=== PATIENT | female | born 1950 | race Caucasian/White ===

== ENCOUNTER → 2016-02-29 | Outpatient (REF) | payer MEDICARE, OTHER ==
[2016-02-29 17:24] LABS: ANION GAP 10 MEQ/L (8-16); BLOOD UREA NITROGEN 14 MG/DL (7-18); CALCIUM LEVEL 9.5 MG/DL (8.8-10.2); CARBON DIOXIDE LEVEL 29 MEQ/L (21-32); CHLORIDE LEVEL 103 MEQ/L (98-107); CREATININE FOR GFR 0.84 MG/DL (0.55-1.02); GLOMERULAR FILTRATION RATE > 60.0 (>45); GLUCOSE, FASTING 136 MG/DL (80-110); POTASSIUM SERUM 3.9 MEQ/L (3.5-5.1); SODIUM LEVEL 142 MEQ/L (136-145)
== END ==
LOC: M SFHCCLAY 09:46
PROVIDERS: ATTEND Family Medicine
DX: I10 Essential (primary) hypertension (principal); E55.9 Vitamin D deficiency, unspecified
CPT/HCPCS: 80048; 82652; G0463

== ENCOUNTER 2016-04-22 19:33 | Inpatient (IN) | payer MEDICARE, OTHER ==
[~2016-04-22] VITALS: Ht 165.1 cm; Wt 86.1 kg
[2016-04-22] MEDS ORDERED: ISOVUE-370 76% 100ML VIAL (Q9967) As Ordered ONE (20:17)
[2016-04-22 20:22] LABS: ABG BASE EXCESS 0.5 (-2.0-2.0); ABG DEVICE NASAL CANN; ABG HCO3 20.7 MEQ/L (22.0-26.0); ABG PARTIAL PRESSURE CO2 23.8 mmHg (35.0-45.0); ABG STANDARD HCO3 24.5 MEQ/L (22.0-26.0); ABG TOTAL CO2 21.4 MEQ/L (23.0-31.0); ABG pH (ARTERIAL) 7.557 UNITS (7.350-7.450)
[2016-04-22 20:23] LABS: ABG PARTIAL PRESSURE O2 40.2 mmHg (75.0-100.0)
[2016-04-22] MEDS ORDERED: ONDANSETRON 4MG/2ML VIAL (J2405) IV PRN (21:00)
--- NOTE | 2016-04-22 21:10 | REPUSA ---
CT angiogram of the chest Clinical statement: shortness of breath. Technique: Multiple axial CT images were obtained from the thoracic inlet through the upper abdomen a fter a bolus administration of nonionic intravenous contrast. Coronal and sagittal reconstructions we re also obtained. No comparison is available. Findings: The pulmonary arteries are well-opacified with contrast, with no intraluminal filling defec ts to suggest embolism. The thoracic aorta is unremarkable. Thyroid gland is within normal limits. Th ere is no thoracic lymphadenopathy. There are no pericardial or pleural effusions. The lungs are ayden r. Limited imaging of the upper abdomen is unremarkable. There is a 3 cm simple cyst in the posterior right kidney. There are no suspicious osseous lesions. Impression: Unremarkable CT examination of the chest. No evidence of pulmonary embolism.
[2016-04-22] MEDS ORDERED: LEVALBUTEROL 1.25 MG/0.5 ML CONCENTRATE NEB INH PRN (21:15)
[2016-04-22] MEDS ORDERED: diltiaZEM 125 MG in NS 100 ML IV SCH (21:45)
[2016-04-22] MEDS ORDERED: SODIUM CHLORIDE NASAL 0.65% SPRAY BTL (OCEAN) PRN (21:45)
[2016-04-22 21:48] LABS: ABG BASE EXCESS 1.2 (-2.0-2.0); ABG HCO3 23.1 MEQ/L (22.0-26.0); ABG PARTIAL PRESSURE O2 90.8 mmHg (75.0-100.0); ABG STANDARD HCO3 25.5 MEQ/L (22.0-26.0); ABG TOTAL CO2 24.1 MEQ/L (23.0-31.0); ABG pH (ARTERIAL) 7.505 UNITS (7.350-7.450)
[2016-04-22] MEDS ORDERED: CLINDAMYCIN 600 MG in APPROPRIATE DILUENT 1 EA IV SCH (22:00)
[2016-04-22 22:09] LABS: BASO % 0.4 % (0.0-1.0); EOS # 0.1 K/mm3 (0.0-0.50); EOS % 0.7 % (0.0-3.0); LARGE UNSTAINED CELL # 0.2 K/mm3 (0.0-0.4); LARGE UNSTAINED CELL % 1.6 % (0.0-4.0); LYMPH # 2.2 K/mm3 (1.5-4.5); LYMPH % 23.1 % (24.0-44.0); MEAN CORPUSCULAR HEMOGLOBIN 28.7 pg (27.0-33.0); MEAN CORPUSCULAR HGB CONC 34.3 g/dl (32.0-36.5); MEAN CORPUSCULAR VOLUME 83.8 fl (80.0-96.0); MONO # 0.5 K/mm3 (0.0-0.8); MONO % 4.8 % (0.0-5.0); NEUTROPHILS # 6.7 K/mm3 (1.8-7.7); NEUTROPHILS % 69.5 % (36.0-66.0); PLATELET COUNT, AUTOMATED 315 k/mm3 (150-450); RED CELL DISTRIBUTION WIDTH 12.9 % (11.5-14.5); WHITE BLOOD COUNT 9.6 K/mm3 (4.0-10.0)
[2016-04-22 22:29] LABS: ALKALINE PHOSPHATASE 56 U/L (45-117); ALT/SGPT 57 U/L (12-78); AMYLASE 27 U/L (25-115); ANION GAP 12 MEQ/L (8-16); AST/SGOT 27 U/L (15-37); BILIRUBIN,TOTAL 0.4 MG/DL (0.2-1.0); BLOOD UREA NITROGEN 10 MG/DL (7-18); CALCIUM LEVEL 8.8 MG/DL (8.8-10.2); CARBON DIOXIDE LEVEL 24 MEQ/L (21-32); CHLORIDE LEVEL 100 MEQ/L (98-107); GLOMERULAR FILTRATION RATE > 60.0 (>45); GLUCOSE, FASTING 123 MG/DL (80-110); POTASSIUM SERUM 3.3 MEQ/L (3.5-5.1); SODIUM LEVEL 136 MEQ/L (136-145); T UPTAKE 35 % (30-39); THYROXINE (T4) 13.2 UG/DL (4.5-12.0)
[2016-04-22] MEDS ORDERED: PANT40TA2 PO (22:52)
[2016-04-22] MEDS ORDERED: METF500T PO (22:52)
[2016-04-22] MEDS ORDERED: ASPI81TAEC PO (22:52)
[2016-04-22] MEDS ORDERED: PLAV75TA38 PO (22:52)
[2016-04-22] MEDS ORDERED: VITA200015 PO (22:52)
[2016-04-22] MEDS ORDERED: PRAV20TA2 PO (22:52)
[2016-04-22] MEDS ORDERED: HYDR12CA PO (22:52)
[2016-04-22] MEDS ORDERED: CEFD1CAP8 PO (22:52)
[2016-04-22] MEDS ORDERED: ZYRT10TA2 PO (22:52)
[2016-04-22] MEDS ORDERED: LISI2.5T3 PO (22:52)
[2016-04-22] MEDS ORDERED: NYST100024 TOP (22:52)
[2016-04-22] MEDS ORDERED: ACET50TAOT PO (22:52)
[2016-04-22] MEDS ORDERED: CO Q1CAP PO (22:52)
[2016-04-22] MEDS ORDERED: DILT120C82 PO (22:52)
--- NOTE | 2016-04-22 23:00 | REPUSA ---
CT of the head Clinical history: Headache. Technique: Multiple axial CT images were obtained through the head without administration of contrast . Findings: The ventricles and sulci are symmetric bilaterally. There is no evidence of acute hemorrhag e or infarct. There is no midline shift, mass effect, or extra-axial fluid collection. The osseous st ructures are unremarkable. The visualized paranasal sinuses and mastoid air cells are clear. Impression: Negative study.
[2016-04-22] MEDS ORDERED: DEXTROSE 50% 50 ML SYRINGE IV PRN (23:15)
[2016-04-22] MEDS ORDERED: GLUCAGON FOR INJ 1 MG VIAL (J1610) SC PRN (23:15)
[2016-04-22] MEDS ORDERED: GLUCOSE 4 GM CHEW TABLET PO PRN (23:15)
--- NOTE | 2016-04-22 23:18 | EDDOCDS ---
Nurse's Notes [facility] Name: Bindu Grullon Age: 65 yrs Sex: Female : 1950 Arrival Date: 04/22/2016 Time: 19:33 Bed 4 Private MD: Diagnosis: Hypoxemia Presentation: 04/22 19:45 Presenting complaint: EMS states: Patient transferred from [facility] after she mgs went to the hospital reporting abdominal pain on the right side that she states travels to left side and up to her ears. SOB that patient reports has been happening for close to a year. Adult Sepsis Screening: The patient does not have new or worsening altered mentation. Patient has a respiratory rate of greater than or equal to 22 (1 point). Systolic blood pressure is greater than 100. Patient has a qSOFA score of 1- Negative Sepsis Screen. Suicide/Homicide risk assessment- the patient denies having any suicidal and/or homicidal ideations and does not present with any other emotional, behavioral or mental health complaints. Status: Patient is not a ag service manager or dependent. Transition of care: patient was received from [facility]. 19:45 Acuity: PAMELA Level 3 mgs 19:45 Method Of Arrival: Ambulance mgs Triage Assessment: 19:59 General: Appears uncomfortable, Behavior is cooperative. Pain: The patient reports mgs he/she is under the care of a painter chassis and has a current pain contract. Location: from left upper abdomen to right upper abdomen that patient reports travels up to heart. The patient is triaged at the bedside. See Assessment in Nurses Notes section of ED record. Neurological: Level of Consciousness is awake, alert, Oriented to person, place, time. Cardiovascular: Capillary refill < 3 seconds Heart tones S1 S3 present Pulses are 2+ in right radial artery and left radial artery. Respiratory: Onset: The symptoms/episode began/occurred over a week. GI: Abdomen is obese, Bowel sounds present X 4 quads. Abd is tender to palpation in right upper quadrant and left upper quadrant. Derm: Derm: Skin is appears slightly cyanotic. Historical: - Allergies: PENICILLINS; - Home Meds: 1. Plavix 75 mg Oral tab 1 tab once daily 2. acetaminophen 500 mg Oral cap 1 cap as needed 3. aspirin 81 mg Oral tab 1 tab once daily 4. Co Q-10 100 mg oral cap 5. hydrochlorothiazide 12.5 mg Oral tab 1 tab once daily 6. lisinopril 2.5 mg Oral tab 1 tab once daily 7. metformin 500 mg Oral Tb24 1 tab once daily 8. Oxygen 3 liters 9. pravastatin 20 mg oral tab 1 tab once daily 10. Protonix 40 mg Oral grps 1 packet once daily 11. Vitamin D Oral 2000 units daily 12. Zyrtec 10 mg Oral tab 1 tab as needed 13. diltiazem HCl 120 mg Oral cpER 1 cap once daily - PMHx: Sinusitis; paroxysmal ventricular tachycardia; Bronchitis; Hypercholesterolemia; breast cancer; diabetes mellitus; Hypertension; - PSHx: Cholecystectomy; Lumpectomy- Left; Tubal ligation; - Social history: Smoking status: Patient states was never smoker of tobacco. No barriers to communication noted, The patient speaks fluent Indonesian. - Family history: Not pertinent. - : The pt / caregiver states he / she is on anticoagulants: Plavix. Home medication list is obtained from the facility APR. - Exposure Risk Screening:: None identified. Screenin:09 Screening information is obtained from the patient, family members. Fall risk: At risk mgs due to age. Assistance ADL's: requires no assistance with activities of daily living. Abuse/DV Screen: The patient / caregiver reports he/she is: not in a situation that causes fear, pain or injury. Nutritional screening: No deficits noted. Advance Directives: Currently, there is no health care proxy. There is no active DNR order. home support is adequate. Assessment: 20:10 General: Please see triage assessment. mgs 21:34 General: Appears in no apparent distress, Behavior is appropriate for age, cooperative. mgs Pain: Location: left upper quadrant and right upper quadrant Pain currently is 5 out of 10 on a pain scale. Neurological: Level of Consciousness is awake, alert, Oriented to person, place, time. Cardiovascular: Capillary refill < 3 seconds Heart tones S1 S2 present. Respiratory: Airway is patent Respiratory effort is even, unlabored, Respiratory pattern is regular, symmetrical. Derm: Skin is pink, warm & dry. 22:37 General: Appears in no apparent distress. Neurological: Level of Consciousness is mgs awake, alert. Cardiovascular: Capillary refill < 3 seconds. Respiratory: Airway is patent Respiratory effort is even, unlabored, Respiratory pattern is regular, symmetrical. Derm: Skin is pink, warm & dry. 23:15 General: Appears in no apparent distress, Behavior is appropriate for age, cooperative. mgs Neurological: Level of Consciousness is awake, alert. Cardiovascular: Capillary refill < 3 seconds. Respiratory: Airway is patent Respiratory effort is even, unlabored, Respiratory pattern is regular, symmetrical. Derm: Skin is pink, warm & dry. Vital Signs: 19:50 BP 156 / 99; Pulse 98; Resp 22; Temp 97.5; Pulse Ox 84% on 15% Non-rebreather mask; mgs 20:23 BP 147 / 95 (auto/); mgs 20:23 Pulse 104 MON; Pulse Ox 75% ; mgs 20:48 BP 147 / 95; Pulse 88; Resp 20; Pulse Ox 92% on Non-rebreather mask; mgs 20:48 BP 134 / 83 (auto/); mgs 20:48 Pulse 88 MON; Pulse Ox 92% ; mgs 21:03 BP 133 / 84 (auto/); mgs 21:03 Pulse 86 MON; Pulse Ox 93% ; mgs 21:18 BP 120 / 83 (auto/); mgs 21:18 Pulse 86 MON; Pulse Ox 96% ; mgs 21:33 BP 129 / 86 (auto/); mgs 21:33 Pulse 86 MON; Pulse Ox 96% ; mgs 22:18 BP 140 / 82 (auto/); mgs 22:18 Pulse 86 MON; Pulse Ox 92% ; mgs 22:33 BP 131 / 80 (auto/); mgs 22:33 Pulse 90 MON; Pulse Ox 99% ; mgs 22:48 BP 122 / 77 (auto/); mgs 22:48 Pulse 84 MON; Pulse Ox 97% ; mgs 23:03 BP 119 / 77 (auto/); mgs 23:03 Pulse 82 MON; Pulse Ox 96% ; mgs 23:12 BP 127 / 85 LA Supine (auto/reg); Pulse 85 MON; Resp 20 S; Temp 98.3(TE); Pulse Ox 97% cln on 15% Non-rebreather mask; Pain 0/10; 23:12 BP 127 / 85 (auto/); mgs 23:12 Pulse 86 MON; Pulse Ox 96% ; mgs Vitals: 20:07 Log In Time N/A - ambulance arrival. mgs ED Course: 19:39 Patient visited by Baljinder Medina, Drier Tender. ml3 19:39 Siobhan Whittaker, NATAN is Primary Nurse. ml3 19:39 Patient moved to Waiting ml3 19:39 Patient moved to 4 ml3 19:43 Bryan Davidson DO is Attending Physician. cs11 19:43 Patient visited by Bryan Davidson DO. cs11 19:48 Triage Initiated mgs 20:10 Patient visited by Noah Levy RN. mgs 20:13 -Arterial Blood Gas Sent. lf2 20:49 Patient visited by Noah Levy,NATAN. mgs 21:35 Patient visited by Noah Levy,NATAN. mgs 21:41 ARTERIAL BLOOD GAS Sent. dk 21:42 CT Chest Angio R/O PE Returned. EDMS 21:43 Krystal Henderson is Hospitalizing Provider. cs11 22:15 Primary Nurse role handed off by Siobhan Whittaker RN renate 22:20 Noah Levy RN is Primary Nurse. mgs 22:33 notified hospitalist of lactic acid of 2.2. mlc 22:38 Patient visited by Noah Levy RN. mgs 23:16 The patient / caregiver is instructed regarding the plan of care and ED course. mgs 23:16 Inserted saline lock: 20 gauge in left antecubital area. No procedures done that mgs require assistance. RT: 20:13 ABG's drawn from left radial artery allens test done and positive pressure held for 5 lf2 minutes pressure bandage applied specimen sent pt. tolerated well. O2 via non-rebreather \T\ 15L/min. 21:42 ABG's drawn from left radial artery allens test done and positive pressure held for 5 dk minutes no bleeding noted pressure bandage applied specimen sent pt. tolerated well. Order Results: Lab Order: -Arterial Blood Gas; SPEC'M 04/22/16 20:12 Test: ABG pH (ARTERIAL); Value: 7.557; Range: 7.350-7.450; Abnormal: Above high normal; Units: UNITS; Status: F Test: ABG PARTIAL PRESSURE CO2; Value: 23.8; Range: 35.0-45.0; Abnormal: Below low normal; Units: mmHg; Status: F Test: ABG PARTIAL PRESSURE O2; Value: 40.2; Range: 75.0-100.0; Abnormal: Critical Low; Units: mmHg; Status: F Test: ABG TOTAL CO2; Value: 21.4; Range: 23.0-31.0; Abnormal: Below low normal; Units: MEQ/L; Status: F Test: ABG HCO3; Value: 20.7; Range: 22.0-26.0; Abnormal: Below low normal; Units: MEQ/L; Status: F Test: ABG BASE EXCESS; Value: 0.5; Range: -2.0-2.0; Status: F Test: ABG STANDARD HCO3; Value: 24.5; Range: 22.0-26.0; Units: MEQ/L; Status: F Test: ABG O2 SATURATION; Value: 81.1; Range: 95.0-99.0; Abnormal: Below low normal; Units: %; Status: F Test: ABG DEVICE; Value: NASAL ISAIAH; Status: F Lab Order: BRAIN NATIURETIC PEPTIDE; SPEC'M 04/22/16 21:48 Test: BRAIN NATRIURETIC PEPTIDE; Value: 78.6; Range: <100; Units: PG/ML; Status: F Lab Order: COMPLETE COMPHRENSIVE METABOLI; SPEC'M 04/22/16 21:48 Test: GLUCOSE, FASTING; Value: 123; Range: 80-110; Abnormal: Above high normal; Units: MG/DL; Status: F Test: BLOOD UREA NITROGEN; Value: 10; Range: 7-18; Units: MG/DL; Status: F Test: CREATININE FOR GFR; Value: 0.90; Range: 0.55-1.02; Units: MG/DL; Status: F Test: GLOMERULAR FILTRATION RATE; Value: > 60.0; Range: >45; Status: F Test: SODIUM LEVEL; Value: 136; Range: 136-145; Units: MEQ/L; Status: F Test: POTASSIUM SERUM; Value: 3.3; Range: 3.5-5.1; Abnormal: Below low normal; Units: MEQ/L; Status: F Test: CHLORIDE LEVEL; Value: 100; Range: 98-107; Units: MEQ/L; Status: F Test: CARBON DIOXIDE LEVEL; Value: 24; Range: 21-32; Units: MEQ/L; Status: F Test: ANION GAP; Value: 12; Range: 8-16; Units: MEQ/L; Status: F Test: CALCIUM LEVEL; Value: 8.8; Range: 8.8-10.2; Units: MG/DL; Status: F Test: AST/SGOT; Value: 27; Range: 15-37; Units: U/L; Status: F Test: ALT/SGPT; Value: 57; Range: 12-78; Units: U/L; Status: F Test: ALKALINE PHOSPHATASE; Value: 56; Range: 45-117; Units: U/L; Status: F Test: BILIRUBIN,TOTAL; Value: 0.4; Range: 0.2-1.0; Units: MG/DL; Status: F Test: TOTAL PROTEIN; Value: 8.0; Range: 6.4-8.2; Units: GM/DL; Status: F Test: ALBUMIN; Value: 4.0; Range: 3.2-5.2; Units: GM/DL; Status: F Test: ALBUMIN/GLOBULIN RATIO; Value: 1.00; Range: 1.00-1.93; Status: F Test Note: ; Units are mL/min/1.73 m2 Chronic Kidney Disease Staging per NKF: Stage I & II GFR >=60 Normal to Mildly Decreased Stage III GFR 30-59 Moderately Decreased Stage IV GFR 15-29 Severely Decreased Stage V GFR <15 Very Little GFR Left ESRD GFR <15 on MATERIAL HANDLING WAREHOUSE SUPERVISOR Lab Order: CBC WITH DIFFERENTIAL; SPEC'M 04/22/16 21:48 Test: WHITE BLOOD COUNT; Value: 9.6; Range: 4.0-10.0; Units: K/mm3; Status: F Test: RED BLOOD COUNT; Value: 5.39; Range: 4.00-5.40; Units: M/mm3; Status: F Test: HEMOGLOBIN; Value: 15.5; Range: 12.0-16.0; Units: g/dl; Status: F Test: HEMATOCRIT; Value: 45.1; Range: 36.0-47.0; Units: %; Status: F Test: MEAN CORPUSCULAR VOLUME; Value: 83.8; Range: 80.0-96.0; Units: fl; Status: F Test: MEAN CORPUSCULAR HEMOGLOBIN; Value: 28.7; Range: 27.0-33.0; Units: pg; Status: F Test: MEAN CORPUSCULAR HGB CONC; Value: 34.3; Range: 32.0-36.5; Units: g/dl; Status: F Test: RED CELL DISTRIBUTION WIDTH; Value: 12.9; Range: 11.5-14.5; Units: %; Status: F Test: PLATELET COUNT, AUTOMATED; Value: 315; Range: 150-450; Units: k/mm3; Status: F Test: NEUTROPHILS %; Value: 69.5; Range: 36.0-66.0; Abnormal: Above high normal; Units: %; Status: F Test: LYMPH %; Value: 23.1; Range: 24.0-44.0; Abnormal: Below low normal; Units: %; Status: F Test: MONO %; Value: 4.8; Range: 0.0-5.0; Units: %; Status: F Test: EOS %; Value: 0.7; Range: 0.0-3.0; Units: %; Status: F Test: BASO %; Value: 0.4; Range: 0.0-1.0; Units: %; Status: F Test: LARGE UNSTAINED CELL %; Value: 1.6; Range: 0.0-4.0; Units: %; Status: F Test: NEUTROPHILS #; Value: 6.7; Range: 1.8-7.7; Units: K/mm3; Status: F Test: LYMPH #; Value: 2.2; Range: 1.5-4.5; Units: K/mm3; Status: F Test: MONO #; Value: 0.5; Range: 0.0-0.8; Units: K/mm3; Status: F Test: EOS #; Value: 0.1; Range: 0.0-0.50; Units: K/mm3; Status: F Test: BASO #; Value: 0.0; Range: 0.0-0.2; Units: K/mm3; Status: F Test: LARGE UNSTAINED CELL #; Value: 0.2; Range: 0.0-0.4; Units: K/mm3; Status: F Lab Order: LACTIC ACID LEVEL, LACTATE; SPEC'M 04/22/16 21:49 Test: LACTIC ACID SEPSIS PROTOCOL; Value: 2.2; Range: 0.4-2.0; Abnormal: Above upper panic limits; Units: MMOL/L; Status: F Lab Order: MAGNESIUM LEVEL; [facility] 04/22/16 21:48 Test: MAGNESIUM LEVEL; Value: 2.0; Range: 1.8-2.4; Units: MG/DL; Status: F Lab Order: THYROID PROFILE; [facility]04/[facility]16 21:48 Test: T UPTAKE; Value: 35; Range: 30-39; Units: %; Status: F Test: THYROXINE (T4); Value: 13.2; Range: 4.5-12.0; Abnormal: Above high normal; Units: UG/DL; Status: F Test: FREE THYROXINE INDEX; Value: 4.6; Range: 1.3-4.8; Units: %; Status: F Test: THYROID STIMULATING HORMONE; Value: 1.710; Range: 0.358-3.740; Units: uIU/ML; Status: F Lab Order: ERYTHROCYTE SEDIMENTATION RATE; 04/22/16 21:48 Test: ERYTHROCYTE SEDIMENTATION RATE; Range: 0-30; Units: mm/hr; Status: I Lab Order: C REACTIVE PROTEIN QUANTITATIV; 04/22/16 21:48 Test: C REACTIVE PROTEIN QUANTITATIV; Value: < 0.30; Range: 0.00-0.30; Units: MG/DL; Status: F Lab Order: HEMOGLOBIN A1C; 04/22/16 21:48 Test: HEMOGLOBIN A1c; Value: 6.6; Range: 4.5-6.2; Abnormal: Above high normal; Units: %; Status: F Test: ESTIMATED AVERAGE GLUCOSE; Value: 143; Range: 60-110; Abnormal: Above high normal; Units: MG/DL; Status: F Lab Order: AMYLASE; [facility] 04/22/16 21:48 Test: AMYLASE; Value: 27; Range: 25-115; Units: U/L; Status: F Lab Order: LIPASE; [facility] 04/22/16 21:48 Test: LIPASE; Value: 106; Range: 73-393; Units: U/L; Status: F Lab Order: ARTERIAL BLOOD GAS; [facility] 04/22/16 21:37 Test: ABG pH (ARTERIAL); Value: 7.505; Range: 7.350-7.450; Abnormal: Above high normal; Units: UNITS; Status: F Test: ABG PARTIAL PRESSURE CO2; Value: 30.0; Range: 35.0-45.0; Abnormal: Below low normal; Units: mmHg; Status: F Test: ABG PARTIAL PRESSURE O2; Value: 90.8; Range: 75.0-100.0; Units: mmHg; Status: F Test: ABG TOTAL CO2; Value: 24.1; Range: 23.0-31.0; Units: MEQ/L; Status: F Test: ABG HCO3; Value: 23.1; Range: 22.0-26.0; Units: MEQ/L; Status: F Test: ABG BASE EXCESS; Value: 1.2; Range: -2.0-2.0; Status: F Test: ABG STANDARD HCO3; Value: 25.5; Range: 22.0-26.0; Units: MEQ/L; Status: F Test: ABG O2 SATURATION; Value: 97.6; Range: 95.0-99.0; Units: %; Status: F Lab Order: CARDIAC MARKER PANEL; SPEC'M 04/22/16 21:48 Test: CPK CREATINE PHOSPHOKINASE; Value: 72; Range: 26-192; Units: U/L; Status: F Test: CK-MB VALUE MASS; Value: 5.6; Range: 0.0-3.6; Abnormal: Above high normal; Units: NG/ML; Status: F Test: MB/CK RELATIVE INDEX; Value: 7.77; Range: < OR =4; Abnormal: Above high normal; Status: F Test: TROPONIN I; Value: 0.09; Range: < 0.10; Units: NG/ML; Status: F Test Note: ; DIAGNOSIS CRITERIA MMB ng/ml Relative Index (RI) NON-AMI < or = 5 N/A MYLES ZONE > 5 < or = 4 AMI > 5 > 4 Radiology Order: CT Chest Angio R/O PE Test: CT Chest Angio R/O PE REASON FOR EXAMINATION: Shortness of Breath; ; CT angiogram of the chest; Clinical statement: shortness of breath.; Technique: Multiple axial CT images were obtained from the thoracic inlet through the upper abdomen a; fter a bolus administration of nonionic intravenous contrast. Coronal and sagittal reconstructions we; re also obtained.; No comparison is available.; Findings: The pulmonary arteries are well-opacified with contrast, with no intraluminal filling defec; ts to suggest embolism. The thoracic aorta is unremarkable. Thyroid gland is within normal limits. Th; ere is no thoracic lymphadenopathy. There are no pericardial or pleural effusions. The lungs are ayden; r. Limited imaging of the upper abdomen is unremarkable. There is a 3 cm simple cyst in the posterior; right kidney. There are no suspicious osseous lesions.; Impression: Unremarkable CT examination of the chest. No evidence of pulmonary embolism.; ; Outcome: 21:43 Decision to Hospitalize by Provider. cs11 23:16 Discharge Assessment: Patient awake, alert and oriented x 3. No cognitive and/or mgs functional deficits noted. Patient verbalized understanding of disposition instructions. patient administered narcotics - no. The following High Risk Discharge criteria are identified: None. Admitted to ICU accompanied by nurse, accompanied by tech, family with patient, via stretcher, with oxygen, on monitor, with chart. Condition: stable. CT Study completed. Property :Personal belongings accompany Pt. 23:17 Patient left the ED. mgs Signatures: Dispatcher [employer] EDMS Mable Pablo,RT RT Baljinder Lennon, Drier Tender Unit ml3 Abeba Schmidt, CLOUD OPERATIONS ENGINEER CLOUD OPERATIONS ENGINEER Bryan Bartlett, DO DO cs11 Nalini Grace RN RN mlc Sheldon, Matthew, RN RN mgs Nuha Bowman,RT RT lf2 Tanisha Guzman, CLOUD OPERATIONS ENGINEER CLOUD OPERATIONS ENGINEER cln MTDD
[2016-04-22 23:19] LABS: ERYTHROCYTE SEDIMENTATION RATE 5 mm/hr (0-30)
[2016-04-22 23:31] VITALS: BP 139/84
[2016-04-23] VITALS (9 sets, daily range): BP systolic 118–137; BP diastolic 71–79; O2SAT 94
[2016-04-23] MEDS: LEVALBUTEROL 1.25 MG/0.5 ML CONCENTRATE NEB INH SCH ×6 (00:01→19:38)
[2016-04-23] MEDS: SODIUM CHLORIDE NASAL 0.65% SPRAY BTL (OCEAN) SCH ×4 (00:56→21:06)
[2016-04-23] MEDS: HEPARIN SOD (PORCINE) 5000 UNITS/ML VIAL SC SCH ×4 (00:56→21:07)
[2016-04-23 05:24] LABS: BASO % 0.5 % (0.0-1.0); EOS # 0.1 K/mm3 (0.0-0.50); EOS % 1.4 % (0.0-3.0); LARGE UNSTAINED CELL # 0.1 K/mm3 (0.0-0.4); LYMPH # 2.3 K/mm3 (1.5-4.5); LYMPH % 24.9 % (24.0-44.0); MEAN CORPUSCULAR HEMOGLOBIN 29.3 pg (27.0-33.0); MEAN CORPUSCULAR HGB CONC 34.7 g/dl (32.0-36.5); MEAN CORPUSCULAR VOLUME 84.4 fl (80.0-96.0); MONO # 0.6 K/mm3 (0.0-0.8); MONO % 6.4 % (0.0-5.0); NEUTROPHILS # 5.8 K/mm3 (1.8-7.7); NEUTROPHILS % 65.7 % (36.0-66.0); PLATELET COUNT, AUTOMATED 297 k/mm3 (150-450); RED CELL DISTRIBUTION WIDTH 13.3 % (11.5-14.5); WHITE BLOOD COUNT 8.9 K/mm3 (4.0-10.0)
[2016-04-23 05:38] LABS: ANION GAP 12 MEQ/L (8-16); BLOOD UREA NITROGEN 10 MG/DL (7-18); CALCIUM LEVEL 8.5 MG/DL (8.8-10.2); CARBON DIOXIDE LEVEL 25 MEQ/L (21-32); CHLORIDE LEVEL 103 MEQ/L (98-107); CREATININE FOR GFR 0.87 MG/DL (0.55-1.02); GLOMERULAR FILTRATION RATE > 60.0 (>45); GLUCOSE, FASTING 131 MG/DL (80-110); MAGNESIUM LEVEL 2.2 MG/DL (1.8-2.4); POTASSIUM SERUM 3.2 MEQ/L (3.5-5.1); SODIUM LEVEL 140 MEQ/L (136-145)
[2016-04-23] MEDS ORDERED: CLINDAMYCIN 600 MG in APPROPRIATE DILUENT 1 EA IV SCH (06:00)
[2016-04-23] MEDS: METOPROLOL TART 50 MG TAB PO SCH ×3 (08:41→17:40)
[2016-04-23] MEDS: PANTOPRAZOLE 40MG TAB (PROTONIX) PO SCH (08:41)
[2016-04-23] MEDS: LACTOBACILLUS ACIDOPHILUS CAP (BACID) PO SCH ×3 (08:42→17:38)
--- NOTE | 2016-04-23 08:42 | HPE ---
DATE OF ADMISSION: 04/22/2016 PRIMARY CARE PHYSICIAN: Dr. Joseph Ibrahim. ATTENDING: Dr. Krystal Henderson. CHIEF COMPLAINT: Tachycardia. HISTORY OF PRESENT ILLNESS: This is a 65-year-old female with a past medical history significant for recurrent sinusitis, paroxysmal ventricular tachycardia, hypercholesterolemia, hypertension, and diabetes mellitus. She presented to [facility] with concerns of shortness of breath, and also abdominal pain. While being stabilized at [facility], she had several episodes of tachycardia. The patient has a history of SVT, currently sees Dr. King for cardiology. The patient was transferred from [facility] to [facility] for further management and stabilization. The patient reports that she was sick approximately 2 weeks ago. She was in her primary care's office when she was discovered to have heart rate of 150s while at the clinic. She was immediately transferred to [facility] for evaluation. She presented to her primary care that day because of complaints of shortness of breath, fatigue, coughing, and congestion for approximately 3 days. The patient was observed overnight at [facility]. According to the patient, Dr. King, cardiology, was consulted. He started the patient on Plavix 75 mg daily and diltiazem 120 mg daily. The patient was discharged from the hospital on the following day with instructions to follow up with Dr. Youngblood. She was started on Holter monitor. This occurred on 04/09/2016 and the patient was discharged from [facility] on 04/10/2016. The patient returned to [facility] on 04/15/2016. She was diagnosed with having acute bronchitis. She was treated with a Z-Torrey. At the time, she still had a cough. She was discharged from the emergency department with supplemental oxygen, 3 liters. This was because the patient desaturated to 88%. In the emergency department today, the patient has had controlled heart rate. However, she continues to have poor oxygen saturation. As reported by the staff, she appears to have improved oxygen saturations when she is lying flat.. At this time, she denies any chest pain. She does have some shortness of breath, which has improved. She denies feeling any palpitations. Since does continue to complain about abdominal discomfort that seems to the coming from the right upper abdomen across. PAST MEDICAL HISTORY: Diabetes mellitus. Hypertension. Hyperlipidemia. Breast cancer status post lumpectomy and radiation in 2001. Gastroesophageal reflux disease (GERD). Irritable bowel syndrome (IBS). Vitamin deficiency. Glaucoma. Frequent sinusitis. Paroxysmal ventricular tachycardia. PAST SURGICAL HISTORY: Left lumpectomy. Tubal ligation. Cholecystectomy. Recent EGD and colonoscopy normal in 2015. SOCIAL HISTORY: Lives with her son, they have no pets. Denies any tobacco history. Denies any alcohol or recreational drug treated drug use. No recent travels. 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 FAMILY HISTORY: Her mother and uncle had coronary artery disease. No other heart problems that she can recall. ALLERGIES: PENICILLIN. MEDICATIONS: - acetaminophen 500 mg as needed - Plavix 75 mg daily - aspirin 81 mg daily - CoQ10 100 mg daily - hydrochlorothiazide 12.5 mg daily - lisinopril 2.5 mg daily - metformin 500 mg daily - supplemental oxygen 3 liters - pravastatin 20 mg daily - Protonix 40 mg daily - vitamin D 2000 units daily - Zyrtec 10 mg as needed - diltiazem 120 mg daily REVIEW OF SYSTEMS: Constitutional symptoms: No fevers, unexplained weight changes. HEENT: Admits to history of glaucoma. Denies headaches, current eye pain. Complains of right year pain and also tenderness in the maxillary sinuses. Cardiovascular: Admits to episodes of increased heart rate and palpitations. Denies any chest pain. Respiratory: Admits to cough, shortness of breath. Denies any wheezing. Gastrointestinal: Admits to abdominal pain and "stomach fluttering". Denies diarrhea or constipation, hematochezia. : Denies any dysuria, hematuria. Musculoskeletal: Denies any new joint aches or pains, swelling in the extremities. Integumentary: No new skin rashes or lesions. No changes to skin color. Neurologic: No loss or changes in sensation. Hematologic: No abnormal bleeding or bruising. Endocrine: No polydipsia, polyuria. Has a positive history of diabetes mellitus. No heat or cold intolerance. PHYSICAL EXAMINATION: Vital signs: Blood pressure is 129/86, pulse is 98, respirations 22, temperature is 97.5, oxygen saturation is 84% on 15% non-rebreather. General: The patient is resting in the hospital bed. She does not appear to be in any acute distress. HEENT: Extraocular movements are intact bilaterally. Her pupils are equally round and reactive to light and accommodation. Her left tympanic membrane is erythematous. Her right tympanic membrane is flat. She is tender to palpation over her maxillary sinus. Her mucous membranes are moist. No tonsillar exudates. No cervical lymphadenopathy appreciated. She has good facial symmetry. Cardiac: Regular rate and rhythm, no murmurs appreciated. Respiratory: Clear to auscultation bilaterally. No wheezes appreciated. Gastrointestinal: Soft, minimally tender to palpation in the upper abdomen. No rebound, tenderness or guarding. Normoactive bowel sounds are heard throughout. Skin: Warm, dry, pink. Neuro: No sensory deficits throughout. No numbness or tingling. Cranial nerves II-XII are grossly intact. Extremities: +2 pedal and radial pulses. No edema in the lower extremities. LABORATORY FINDINGS: WBC is 9.6, hemoglobin 15.5, hematocrit 45.1, platelet count is 315. Sodium 136, potassium 3.3, chloride 100, carbon dioxide 24, anion gap is 12, BUN 10, creatinine 0.90, GFR is greater than 60, fasting glucose is 123, hemoglobin A1c is 6.6, lactic acid 2.2, calcium 8.8, magnesium 2.0, AST 27, ALT 57, alkaline phosphatase 56, troponin 0.09. BNP is 778.6. TSH is 1.71. ABG: pH is 7.5, pCO2 is 30.0, pO2 is 90.8, HCO3 is 23.1, O2 saturation is 97.6, total CO2 is 24.1. Respiratory panel, Methicillin-resistant staphylococcus aureus (MRSA) screen, and urine culture are pending. IMAGING STUDIES: CT angio of the chest completed on 04/22/[address] exam. No evidence of pulmonary embolism. CT scan of the head without contrast was completed on 04/22/2016 which shows no acute disease. There is no evidence of acute hemorrhage or infarct. The paranasal sinuses and mastoid air cells are clear. ASSESSMENT/PLAN: This is a 65-year-old female with hypoxia and paroxysmal SVT. At this time, we are admitting the patient to the ICU for further stabilization and workup. We ordered an echocardiogram, and we will review the results when available. With her presentation, especially with her oxygen saturations changing with her lying down, there is a possibility that she may have platypnea orthodeoxia. At this time, we recommend the patient to lie in a supine position with at most one pillow for comfort. We will have respiratory manage her breathing. We will have her oxygen saturations titrated above 90%. The patient was also started on Xopenex nebulization because of her breathing. For her paroxysmal supraventricular tachycardia, we will diltiazem. The patient will be on telemetry and we will continue to monitor her. For her history of sinusitis, and recent bronchitis, we will start her on clindamycin at this time. The respiratory panel is currently pending. For her diabetes, we will be starting on a sliding scale insulin. I am holding her metformin at this time. For her hypertension, her blood pressure has been with . I will be holding her blood pressure medications at this time. We will monitor her on the diltiazem. For her gastroesophageal reflux disease, we will continue her on Protonix. For deep venous thrombosis (DVT) prophylaxis, the patient will be started on heparin and also antiembolic stockings. Cardiology has been . The plan was discussed with the family who was present along with the patient. They were agreeable to the plan at this time. They had no further concerns or questions. My preceptor for this patient encounter was Dr. Henderson. The preceptor was physically present in the building during the encounter and was fully available. As needed, all aspects of the patient interview, examination, medical decision making process, and medical care plan development were reviewed and approved by the preceptor. The preceptor is aware and concurs with the plan as stated in the body of this note and will attest to such by his/her cosignature.
[2016-04-23] MEDS: HumaLOG INSULIN (NovoLOG) PER UNIT SC SCH ×4 (08:44→21:05)
--- NOTE | 2016-04-23 08:46 | ECHO ---
DATE OF PROCEDURE: 04/22/2016 REFERRING PHYSICIAN: Dr. Henderson and Dr. Pop. INDICATION: SVT, hypoxemia, platypnea. HEIGHT: 5' 5" WEIGHT: 192 pounds. The study was performed on an emergency basis on 04/22/2016 in the emergency room. DIMENSION: IVS: 0.9 LV: 4.1 LVPW: 0.9 Aorta: 3.7 Ascending aorta: 4.0 RV: 2.9 FINDINGS: The study is of acceptable technical quality. Left ventricle is normal size and contractility with estimated ejection fraction (EF) around 65-70%. No segmental wall motion abnormalities were seen based on fair quality images. Right ventricle is also normal size and systolic function. Both atria appear grossly normal even though left atrium was not formally measured. Aortic valve is tricuspid. It is sclerotic and has some limitation of cusp mobility. Mitral tricuspid and pulmonic valves appear normal. No pericardial effusion is noted. Inferior vena cava is normal size. Aortic root is borderline dilated at 3.7 and the proximal segment of ascending aorta measures 4.0. Aortic arch and abdominal aorta appear grossly normal. Doppler interrogation reveals no aortic insufficiency and minimal stenosis with mean gradient 13 mmHg. There is no significant mitral valve disease. There is trace tricuspid insufficiency with calculated pulmonary artery pressure within normal limits. Pulmonic valve is functionally competent. Mitral inflow pattern and tissue Doppler imaging of mitral annulus reveal grade 1 diastolic dysfunction. CONCLUSIONS: 1. Study is of acceptable technical quality. 2. Normal LV size and systolic function, grade 1 diastolic dysfunction. 3. Mild aortic stenosis. 4. No additional significant valvular disease. 5. Normal central venous pressure and likely normal pulmonary artery pressure. 6. Dilated ascending aorta (4.0cm). COMMENT: Subacute bacterial endocarditis (SBE) prophylaxis not recommended. MTDD
--- NOTE | 2016-04-23 09:26 | REP ---
PORTABLE CHEST: AP portable view of the chest is performed. There is linear fibroatelectatic change in each lung base. There is no consolidating infiltrate. The heart is normal in size and the mediastinal silhouette is unremarkable. There is some mild calcification and tortuosity of the thoracic aorta. IMPRESSION: Mild bibasilar fibroatelectatic change. Signed by El Malik MD 04/23/2016 04:51 P
[2016-04-23] MEDS ORDERED: POTASSIUM CHLORIDE 10 MEQ SR TABLET PO ONE (13:00)
[2016-04-23] MEDS: DOXYCYCLINE HYCLATE 100 MG in D5W MINI-BAG PLUS 100 ML IV SCH (15:40)
[2016-04-23] MEDS: ACETAMINOPHEN TAB 650MG DOSE (2X325MG) PO PRN (15:59)
--- NOTE | 2016-04-23 16:30 | IPN ---
DATE: 04/23/2016 SUBJECTIVE: Patient is seen and examined in the room today. Patient still complains about nasal congestion with right ear pain. Patient also complains about epigastric pain worsened with palpation. Otherwise, no acute changes or acute complaints. Per cardiac telemetry, patient does not have any recurrence of atrial tachycardia. She has been in sinus rhythm with a heart rate around 80-90s. OBJECTIVE: VITAL SIGNS: Temperature 98.8, pulse 88, respirations 20, blood pressure 122/73, pulse oximetry 94% with 15 liters high flow nasal cannula. GENERAL: In mild distress, alert and oriented times three. HEENT: Normocephalic, atraumatic. Extraocular motors grossly intact. CARDIOVASCULAR: Positive S1, S2, regular rate. LUNGS: Clear to auscultation bilaterally. ABDOMEN: Tenderness to palpation in the epigastric region and also there is some tenderness in the left upper abdomen. No rebound. No guarding. EXTREMITIES: Trace edema bilaterally. No sign of cyanosis. LABORATORY DATA: WBC 8.9, hemoglobin 15.1, hematocrit 43.4, platelet count 297. Sodium 140, potassium 3.2, chloride 103, carbon dioxide 25, BUN 10, creatinine 0.87, GFR greater than 60, fasting glucose 131, calcium 8.5, magnesium 2.2, total creatine kinase 82, troponin I is 0.06. ASSESSMENT AND PLAN: 1. Supraventricular tachycardia. Patient is just off the Cardizem drip. Patient's medication has been adjusted by the animal trainer, we appreciate Dr. Mcdowell's input. Starting from today, patient's Cardizem was switched to metoprolol. 2. Sinusitis with recent bronchitis. Patient has an allergy to PENICILLIN. Due to concern for Clostridium (C) difficile from the clindamycin, patient's antibiotic regimen was switched to doxycycline. 3. Diabetes. Patient will be on sliding scale and consistent carbohydrate diet. 4. Hypertension. Patient's medication was switched to metoprolol. Patient's blood pressure has been within satisfactory range. 5. Acute respiratory failure. Patient has continued to require high flow nasal cannula (15 liters). Patient's etiology is unknown at this moment. Patient has negative CTA, negative cardiac echo, no white count. Will consider discussing the case with automotive parts counterperson. Currently patient's oxygen saturation is maintained with the current management. 6. Hyperlipidemia. 7. Breast cancer status post lumpectomy and radiation in 2000. 8. Gastroesophageal reflux disease. 9. Irritable bowel syndrome. 10. Glaucoma. 11. Deep venous thrombosis (DVT) prophylaxis. Patient is on heparin.
--- NOTE | 2016-04-23 22:22 | ECGEPIP ---
Stationary ECG Study [facility] Test Date: 2016-04-23 Pat Name: AYSHA NEWTON Department: Room: [place] [address] Gender: F [employer]: BANDAR : 1950 Requested By: Eliu Mcdowell Order Number: [id number] Reading MD: Reynaldo Emerson Measurements Intervals [place] Rate: 80 P: 13 NC: 220 QRS: -34 QRSD: 93 T: 108 QT: 369 QTc: 427 Interpretive Statements SINUS RHYTHM WITH FIRST DEGREE AV BLOCK Left axis deviation Left ventricular hypertrophy by aVL criteria Nonspecific T wave abnormality Comparison tracing not on file Electronically Signed On 04-23-2016 22:21:47 EST by Reynaldo Emerson
--- NOTE | 2016-04-23 23:44 | CR ---
DATE OF CONSULTATION: 04/23/2016 REFERRING PHYSICIAN: Dr. Krystal Henderson INDICATION: SVT, hypoxemia. HISTORY OF PRESENT ILLNESS: I was asked by Dr. Henderson to attend to Mrs. Grullon. I saw her this morning while rounding in intensive care. She is a very pleasant 65-year-old female, patient of Dr. Ibrahim and Dr. King. She reports approximately a one year history of palpitations. She describes the sensation as starting as a fullness in her abdomen that would be followed by onset of what she describes as a flutter in her chest associated with occasional episodes of near syncope and discomfort in her chest radiating towards her neck. She has had these episodes intermittently probably about once a week and of very brief duration, not more than a minute or so. Unfortunately in the last couple months, the frequency increased and induration increased. This has been the case especially in the last two weeks. In the last two weeks, she reports having episodes several times a day and the duration is now several minutes. She was especially concerned because on at least a couple of occasions she had very distinct presyncopal sensation. The diagnosis was already made about two weeks ago in the primary care physician's office and she was briefly hospitalized in [facility]. At her baseline, she used to be and metoprolol 50 mg twice a day for years, but in an attempt to prevent further episodes it was replaced to Cardizem 120 mg. It appears that this change did not bring any significant improvement, quite to the contrary, the frequency continues to increase. She did have yet another episode during this hospitalization that required administration of intravenous Cardizem to terminate the episode. As an associated problems, she also was found to be markedly hypoxic. She required high flow oxygen to maintain oxygenation in the low 90s and ABGs confirmed presence of significant hypoxemia with associated hypocapnia and pH in alkalotic range. Consequently, CT angiography of the chest was performed looking for possibility of pulmonary embolus but the study was unremarkable. Of note, it appears that her hypoxemia seems to be markedly better when she lays down and deteriorates when she sits up. And finally, she complains about constant epigastric pressure-like sensation that has been present on and off for many months. The etiology of this so far has been unexplained. She had some form of evaluation for GI problems in [facility], but I am not familiar with the details. At the time of my evaluation, she is in intensive care. She is only on three liters of oxygen by nasal cannula and feels quite comfortable, but for her chronic epigastric discomfort she has not had any recurrence of SVT since her presentation last night. PAST MEDICAL HISTORY: 1. Mildly dilated ascending aorta. 2. Hypertension. 3. Dyslipidemia. 4. Reported history of mitral valve prolapse. 5. GERD. 6. History of breast cancer status post left-sided lumpectomy. 7. Type 1 diabetes. 8. Irritable bowel syndrome. 9. She had recent evaluation for ischemia with exercise stress test in September 2015 that was nondiagnostic due to poor exertional tolerance. 10. L breast cancer, stp. lumpectomy and radiation therapy SURGICAL HISTORY: Positive for cholecystectomy, tubal ligation and left lumpectomy. OUTPATIENT MEDICATIONS: -Tylenol as needed - aspirin 81 - CoQ10 - lisinopril 10 a day - metformin 500 twice a day - Cardizem CD 120 a day - pantoprazole 40 a day - pravastatin 20 a day - Ventolin - vitamin D - Zyrtec FAMILY HISTORY: Her mother did not have any cardiac problems of cancer; the same applies for father. SOCIAL HISTORY: The patient is a . She never smoked. There is no history of alcohol use and she lives with her son. REVIEW OF SYSTEMS: She had several presyncopal episodes, but denies miguel syncope. She denies recent fever and chills, but she in the last two weeks has had symptoms of upper respiratory infection with runny nose, sinusitis type of symptoms and cough. She denies any chest pain outside of the episodes of her palpitations. She does have dyspnea on exertion approximately [place] Heart [employer] class II-III. No abdominal pain short of the chronic epigastric discomfort. No vomiting, even though she has had intermittent nausea and occasional loose stools, but as a rule she tends to be constipated. No peripheral edema. Neurologically intact. PHYSICAL EXAMINATION: Mrs. Grullon is an elderly woman who appears approximately her age. During my evaluation her blood pressure was documented as 122/73, heart rate was in 80s. She saturated in the 90s on only three liters of oxygen by nasal cannula even though she was for most of the time on high-flow oxygen by nasal cannula. She was alert and oriented and appropriate, afebrile. Her JVP is not up. LUNGS: Clear. Good air movement. I did not appreciate any wheezes or crackles. HEART: Exam reveals regular rhythm without gallop, rub or murmur, other than maybe a very faint 1/6 intensity systolic murmur at the base. ABDOMEN: Reveals generalized tenderness especially in the epigastrium and right upper quadrant, but I do not appreciate any masses or guarding. EXTREMITIES: Are free of edema. Good peripheral pulses. NEUROLOGICALLY: She is intact. She is very anxious though. I reviewed her ECGs; there are that least two ECGs documented narrow complex tachycardia with heart rate 180 almost 200 bpm. There seems to be retrograde P in the terminal part of the QRS complex highly suggestive of AV and RT as the etiology. Chest x-ray is relatively unremarkable. CT angiography of the chest also unremarkable. Head CT without miguel abnormality. LABORATORY: Normal CBC. Normal basic metabolic panel, but for mild hypokalemia at 3.2, glucose 131, hemoglobin A1c 6.6. Two sets of cardiac enzymes have been negative. ABGs on presentation revealed pCO2 23, pO2 40 with pH 7.55 and saturation only 81% on supplemental oxygen by nasal cannula. ASSESSMENT AND PLAN: Mrs. Grullon is certainly a conundrum. As far as the management of SVT is concerned, my first inclination would be to put her back on higher dose of beta dalhia which has a better chance of being successful. She had an echocardiogram earlier during this hospitalization that revealed preserved LV systolic function and she does not have established coronary artery disease. If metoprolol 50 every six hours with holding parameters for blood pressure and heart rate is not successful in stopping the arrhythmias, then antiarrhythmics either class IC or even amiodarone can be considered. Alternatively, ablation is certainly a good therapeutic option. I reassured the patient that no matter what, we will be successful in controlling her arrhythmias as it is very unusual to not be able to control SVT. The second and more complicated issues is the hypoxemia. 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 These are typically associated with shunting either across the atrial septum or the AVMs typically in pulmonary circulation. I reviewed her echocardiogram and there is certainly no evidence for RV dilatation and at the time being I will tentatively plan on performing so-called "bubble study" looking for the shunting. If inconclusive, we may even consider transesophageal echocardiogram. In the interim, supplemental oxygen should be provided. I do not see any evidence for any infectious process in her lungs and there does not seem to be any evidence for pulmonary embolism and CT angiography was completely normal. Finally, the issue of chronic epigastric discomfort also needs to be resolved. She believes that every single episode of SVT was preceded by worsening of the discomfort. I will again leave this management to the primary team. She already apparently had some degree of evaluation at the [facility]. I believe that probably a CT of the abdomen might be warranted once her situation with SVT is stabilized. I would eliminate as many medication as possible to make sure they do not contribute. I will contact Dr. King who is her railroad passenger agent to follow up on her tomorrow. Otherwise will assist with management during her hospitalization at [facility]. ALVIN
[2016-04-24] VITALS (10 sets, daily range): BP systolic 117–141; BP diastolic 63–83; O2SAT 93–97
[2016-04-24] MEDS: METOPROLOL TART 50 MG TAB PO SCH ×4 (00:15→18:14)
[2016-04-24] MEDS: DOXYCYCLINE HYCLATE 100 MG in D5W MINI-BAG PLUS 100 ML IV SCH (04:33)
[2016-04-24 04:54] LABS: BASO % 0.5 % (0.0-1.0); EOS # 0.2 K/mm3 (0.0-0.50); EOS % 2.1 % (0.0-3.0); LARGE UNSTAINED CELL # 0.1 K/mm3 (0.0-0.4); LARGE UNSTAINED CELL % 1.1 % (0.0-4.0); LYMPH # 2.1 K/mm3 (1.5-4.5); LYMPH % 23.2 % (24.0-44.0); MEAN CORPUSCULAR HEMOGLOBIN 28.5 pg (27.0-33.0); MEAN CORPUSCULAR HGB CONC 33.7 g/dl (32.0-36.5); MEAN CORPUSCULAR VOLUME 84.6 fl (80.0-96.0); MONO # 0.4 K/mm3 (0.0-0.8); MONO % 3.9 % (0.0-5.0); NEUTROPHILS # 6.3 K/mm3 (1.8-7.7); NEUTROPHILS % 69.3 % (36.0-66.0); PLATELET COUNT, AUTOMATED 284 k/mm3 (150-450); RED CELL DISTRIBUTION WIDTH 13.1 % (11.5-14.5); WHITE BLOOD COUNT 9.1 K/mm3 (4.0-10.0)
[2016-04-24 05:13] LABS: ANION GAP 9 MEQ/L (8-16); BLOOD UREA NITROGEN 12 MG/DL (7-18); CALCIUM LEVEL 8.9 MG/DL (8.8-10.2); CARBON DIOXIDE LEVEL 27 MEQ/L (21-32); CHLORIDE LEVEL 104 MEQ/L (98-107); CREATININE FOR GFR 0.84 MG/DL (0.55-1.02); GLOMERULAR FILTRATION RATE > 60.0 (>45); GLUCOSE, FASTING 125 MG/DL (80-110); POTASSIUM SERUM 3.8 MEQ/L (3.5-5.1); SODIUM LEVEL 140 MEQ/L (136-145)
[2016-04-24] MEDS: HEPARIN SOD (PORCINE) 5000 UNITS/ML VIAL SC SCH ×3 (06:22→21:18)
--- NOTE | 2016-04-24 08:26 | CR ---
DATE OF CONSULTATION: 04/24/2016 Mrs. Grullon is feeling better today. She was able to sleep, and she did not have any recurrence of arrhythmias since yesterday. She has been on high dose beta dahlia. She also feels that her abdomen is a little bit better, but she still has some episode of upper epigastric discomfort yesterday at night that did not last very long. VITAL SIGNS Blood pressure 122/78, heart rate is in 60s. She is afebrile. Saturation is in high 90s on high-flow oxygen by nasal cannula, but when I turn off her oxygen just for a few minutes she immediately drops into high 80s. Her fluid balance yesterday was approximately equal. Weight is documented at 85.5 kg. She is alert and oriented and appropriate. Her jugular venous pressure is not up. Lungs are clear. Heart exam is unchanged without gallop or rub or murmur. Abdomen is soft. There is still mild tenderness in the epigastrium. There is no peripheral edema. Neurologically, she is intact. LABORATORY DOCKERY: Her CBC is normal. Basic metabolic panel is also essentially normal but for glucose 125 and her troponin remained negative. ECG is still pending. ASSESSMENT AND PLAN: Mrs. Grullon is a really interesting lady. She came with recurrent episodes of SVT that seemed to have calmed down with high-dose beta dahlia. The second issue is that of hypoxemia. It is not clear what is the etiology at this moment. Her CT angiography of the chest was completely normal, as well as chest x-ray, so I believe we can rule out interstitial lung disease, pulmonary embolism and congestive heart failure. I still believe that there is a high likelihood that she has some form of [id number] shunt. I will ask the echo department to perform bubble study to look for shunt and if not clear-cut answer is obtainable, I would even potentially consider doing transesophageal echocardiogram. At the same time, there is still a possibility of AVM, either in her lung parenchyma or otherwise. I am not certain what is the sensitivity of CTA for this abnormality while when performed looking for pulmonary emboli. As far as the abdominal discomfort is concerned, I spoke with Dr. Pop. She already has had quite an extensive evaluation in the past and it was unrevealing. Unfortunately, on most questions, the answers are still pending. We will see where the further evaluation will lead.
[2016-04-24] MEDS: PANTOPRAZOLE 40MG TAB (PROTONIX) PO SCH (08:43)
[2016-04-24] MEDS: HumaLOG INSULIN (NovoLOG) PER UNIT SC SCH ×4 (08:43→21:16)
[2016-04-24] MEDS: LACTOBACILLUS ACIDOPHILUS CAP (BACID) PO SCH ×3 (08:43→18:13)
[2016-04-24] MEDS: SODIUM CHLORIDE NASAL 0.65% SPRAY BTL (OCEAN) SCH ×3 (08:44→21:17)
[2016-04-24] MEDS: ACETAMINOPHEN TAB 650MG DOSE (2X325MG) PO PRN (08:49)
--- NOTE | 2016-04-24 11:17 | ECGEPIP ---
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
--- NOTE | 2016-04-24 18:12 | IPN ---
DATE: 04/24/2016 SUBJECTIVE: Patient is seen and examined in the room today. Patient has continued to have difficulty breathing. Patient stated her abdominal pain has been improving since admission. However, patient has a fear of oral intake. She is afraid that her abdominal pain will be triggered by the oral intake which leads to the irregular heart rate. OBJECTIVE: VITAL SIGNS: Temperature is 98.7, pulse is 62, respiration 18, blood pressure is 117/72, pulse oximetry is 91% with 15 liters nasal cannula. GENERAL: Anxious. No sign of acute distress. Alert and oriented times three. HEENT: Normocephalic, atraumatic. Extraocular motor grossly intact. CARDIOVASCULAR: Positive S1, S2. Regular rate. LUNGS: Clear to auscultation bilaterally. ABDOMEN: Soft. Bowel sounds present. Tenderness is improved. EXTREMITIES: No edema. No cyanosis. LABORATORY DATA: WBC 9.1, hemoglobin 14, hematocrit is 41.6, platelet count is 284. Sodium is 140, potassium 3.8, chloride is 104, carbon dioxide 27, BUN 12, creatinine 0.84, GFR greater than 60, fasting glucose is 125, calcium is 8.9. ASSESSMENT AND PLAN: 1. Severe hypoxia. Etiology unknown at this moment. In the morning, patient still required 15 liters nasal cannula. We will try to titrating down the oxygen support to see how much she can tolerate it. Patient will have a bubble study scheduled for today to rule out any cardiac shunting or pulmonary shunting. I reviewed the CT angiogram with radiologist. There are no new findings. There are no structural abnormalities that can explain the patient's severe hypoxia. 2. Sinusitis with recent bronchitis. Patient had allergy to penicillin. Patient's antibiotics switched to doxycycline. Patient stated her sinus fullness has been improving. The ear pain has resolved. 3. History of supraventricular tachycardia. Resolved after the Cardizem drip. Currently, patient is switched to the metoprolol. 4. Diabetes. On sliding scale and consistent-carbohydrate diet. 5. Hypertension. On metoprolol. 6. Hyperlipidemia. 7. Breast cancer, status post lobectomy and radiation in 2000. 8. Gastroesophageal reflux disease. 9. Irritable bowel syndrome. 10. Glaucoma. 11. Deep vein thrombosis (DVT) prophylaxis. On heparin. 12. Abdominal pain. Patient had a CT abdomen done in the [facility]. Results were reviewed. Besides the diverticulosis noted, there is no significant abnormality that can explain her abdominal pain. Currently, patient's abdominal has continued to improve. We started the patient on the liquid diet and will advance diet as tolerated.
[2016-04-24] MEDS: DOXYCYCLINE HYCLATE 100 MG TAB PO SCH (21:17)
[2016-04-25] VITALS: BP 141/81
--- NOTE | 2016-04-25 00:19 | EDDOCDS ---
Nurse's Notes [facility] Name: Bindu Grullon Age: 65 yrs Sex: Female : 1950 Arrival Date: 04/22/2016 Time: 19:33 Bed 4 Private MD: Diagnosis: Hypoxemia Presentation: 04/22 19:45 Presenting complaint: EMS states: Patient transferred from [facility] after she mgs went to the hospital reporting abdominal pain on the right side that she states travels to left side and up to her ears. SOB that patient reports has been happening for close to a year. Adult Sepsis Screening: The patient does not have new or worsening altered mentation. Patient has a respiratory rate of greater than or equal to 22 (1 point). Systolic blood pressure is greater than 100. Patient has a qSOFA score of 1- Negative Sepsis Screen. Suicide/Homicide risk assessment- the patient denies having any suicidal and/or homicidal ideations and does not present with any other emotional, behavioral or mental health complaints. 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 Transition of care: patient was received from [facility]. 19:45 Acuity: PAMELA Level 3 mgs 19:45 Method Of Arrival: Ambulance mgs Triage Assessment: 19:59 General: Appears uncomfortable, Behavior is cooperative. Pain: The patient reports mgs he/she is under the care of a instructor painting and has a current pain contract. Location: from left upper abdomen to right upper abdomen that patient reports travels up to heart. The patient is triaged at the bedside. See Assessment in Nurses Notes section of ED record. Neurological: Level of Consciousness is awake, alert, Oriented to person, place, time. Cardiovascular: Capillary refill < 3 seconds Heart tones S1 S3 present Pulses are 2+ in right radial artery and left radial artery. Respiratory: Onset: The symptoms/episode began/occurred over a week. GI: Abdomen is obese, Bowel sounds present X 4 quads. Abd is tender to palpation in right upper quadrant and left upper quadrant. Derm: Derm: Skin is appears slightly cyanotic. Historical: - Allergies: PENICILLINS; - Home Meds: 1. Plavix 75 mg Oral tab 1 tab once daily 2. acetaminophen 500 mg Oral cap 1 cap as needed 3. aspirin 81 mg Oral tab 1 tab once daily 4. Co Q-10 100 mg oral cap 5. hydrochlorothiazide 12.5 mg Oral tab 1 tab once daily 6. lisinopril 2.5 mg Oral tab 1 tab once daily 7. metformin 500 mg Oral Tb24 1 tab once daily 8. Oxygen 3 liters 9. pravastatin 20 mg oral tab 1 tab once daily 10. Protonix 40 mg Oral grps 1 packet once daily 11. Vitamin D Oral 2000 units daily 12. Zyrtec 10 mg Oral tab 1 tab as needed 13. diltiazem HCl 120 mg Oral cpER 1 cap once daily - PMHx: Sinusitis; paroxysmal ventricular tachycardia; Bronchitis; Hypercholesterolemia; breast cancer; diabetes mellitus; Hypertension; - PSHx: Cholecystectomy; Lumpectomy- Left; Tubal ligation; - Social history: Smoking status: Patient states was never smoker of tobacco. No barriers to communication noted, The patient speaks fluent Telugu. - Family history: Not pertinent. - : The pt / caregiver states he / she is on anticoagulants: Plavix. Home medication list is obtained from the facility APR. - Exposure Risk Screening:: None identified. Screenin:09 Screening information is obtained from the patient, family members. Fall risk: At risk mgs due to age. Assistance ADL's: requires no assistance with activities of daily living. Abuse/DV Screen: The patient / caregiver reports he/she is: not in a situation that causes fear, pain or injury. Nutritional screening: No deficits noted. Advance Directives: Currently, there is no health care proxy. There is no active DNR order. home support is adequate. Assessment: 20:10 General: Please see triage assessment. mgs 21:34 General: Appears in no apparent distress, Behavior is appropriate for age, cooperative. mgs Pain: Location: left upper quadrant and right upper quadrant Pain currently is 5 out of 10 on a pain scale. Neurological: Level of Consciousness is awake, alert, Oriented to person, place, time. Cardiovascular: Capillary refill < 3 seconds Heart tones S1 S2 present. Respiratory: Airway is patent Respiratory effort is even, unlabored, Respiratory pattern is regular, symmetrical. Derm: Skin is pink, warm & dry. 22:37 General: Appears in no apparent distress. Neurological: Level of Consciousness is mgs awake, alert. Cardiovascular: Capillary refill < 3 seconds. Respiratory: Airway is patent Respiratory effort is even, unlabored, Respiratory pattern is regular, symmetrical. Derm: Skin is pink, warm & dry. 23:15 General: Appears in no apparent distress, Behavior is appropriate for age, cooperative. mgs Neurological: Level of Consciousness is awake, alert. Cardiovascular: Capillary refill < 3 seconds. Respiratory: Airway is patent Respiratory effort is even, unlabored, Respiratory pattern is regular, symmetrical. Derm: Skin is pink, warm & dry. Vital Signs: 19:50 BP 156 / 99; Pulse 98; Resp 22; Temp 97.5; Pulse Ox 84% on 15% Non-rebreather mask; mgs 20:23 BP 147 / 95 (auto/); mgs 20:23 Pulse 104 MON; Pulse Ox 75% ; mgs 20:48 BP 147 / 95; Pulse 88; Resp 20; Pulse Ox 92% on Non-rebreather mask; mgs 20:48 BP 134 / 83 (auto/); mgs 20:48 Pulse 88 MON; Pulse Ox 92% ; mgs 21:03 BP 133 / 84 (auto/); mgs 21:03 Pulse 86 MON; Pulse Ox 93% ; mgs 21:18 BP 120 / 83 (auto/); mgs 21:18 Pulse 86 MON; Pulse Ox 96% ; mgs 21:33 BP 129 / 86 (auto/); mgs 21:33 Pulse 86 MON; Pulse Ox 96% ; mgs 22:18 BP 140 / 82 (auto/); mgs 22:18 Pulse 86 MON; Pulse Ox 92% ; mgs 22:33 BP 131 / 80 (auto/); mgs 22:33 Pulse 90 MON; Pulse Ox 99% ; mgs 22:48 BP 122 / 77 (auto/); mgs 22:48 Pulse 84 MON; Pulse Ox 97% ; mgs 23:03 BP 119 / 77 (auto/); mgs 23:03 Pulse 82 MON; Pulse Ox 96% ; mgs 23:12 BP 127 / 85 LA Supine (auto/reg); Pulse 85 MON; Resp 20 S; Temp 98.3(TE); Pulse Ox 97% cln on 15% Non-rebreather mask; Pain 0/10; 23:12 BP 127 / 85 (auto/); mgs 23:12 Pulse 86 MON; Pulse Ox 96% ; mgs Vitals: 20:07 Log In Time N/A - ambulance arrival. mgs ED Course: 19:39 Patient visited by Baljinder Medina, Band Bias Machine Operator. ml3 19:39 Siobhan Whittaker, NATAN is Primary Nurse. ml3 19:39 Patient moved to Waiting ml3 19:39 Patient moved to 4 ml3 19:43 Bryan Davidson DO is Attending Physician. cs11 19:43 Patient visited by Bryan Davidson DO. cs11 19:48 Triage Initiated mgs 20:10 Patient visited by Noah Levy RN. mgs 20:13 -Arterial Blood Gas Sent. lf2 20:49 Patient visited by Noah Levy,NATAN. mgs 21:35 Patient visited by Noah Levy,NATAN. mgs 21:41 ARTERIAL BLOOD GAS Sent. dk 21:42 CT Chest Angio R/O PE Returned. EDMS 21:43 Krystal Henderson is Hospitalizing Provider. cs11 22:15 Primary Nurse role handed off by Siobhan Whittaker RN renate 22:20 Noah Levy RN is Primary Nurse. mgs 22:33 notified hospitalist of lactic acid of 2.2. mlc 22:38 Patient visited by Noah Levy RN. mgs 23:16 The patient / caregiver is instructed regarding the plan of care and ED course. mgs 23:16 Inserted saline lock: 20 gauge in left antecubital area. No procedures done that mgs require assistance. 23:20 CT Head without contrast Returned. EDMS RT: 20:13 ABG's drawn from left radial artery allens test done and positive pressure held for 5 lf2 minutes pressure bandage applied specimen sent pt. tolerated well. O2 via non-rebreather \T\ 15L/min. 21:42 ABG's drawn from left radial artery allens test done and positive pressure held for 5 dk minutes no bleeding noted pressure bandage applied specimen sent pt. tolerated well. Order Results: Lab Order: -Arterial Blood Gas; SPEC'M 04/22/16 20:12 Test: ABG pH (ARTERIAL); Value: 7.557; Range: 7.350-7.450; Abnormal: Above high normal; Units: UNITS; Status: F Test: ABG PARTIAL PRESSURE CO2; Value: 23.8; Range: 35.0-45.0; Abnormal: Below low normal; Units: mmHg; Status: F Test: ABG PARTIAL PRESSURE O2; Value: 40.2; Range: 75.0-100.0; Abnormal: Critical Low; Units: mmHg; Status: F Test: ABG TOTAL CO2; Value: 21.4; Range: 23.0-31.0; Abnormal: Below low normal; Units: MEQ/L; Status: F Test: ABG HCO3; Value: 20.7; Range: 22.0-26.0; Abnormal: Below low normal; Units: MEQ/L; Status: F Test: ABG BASE EXCESS; Value: 0.5; Range: -2.0-2.0; Status: F Test: ABG STANDARD HCO3; Value: 24.5; Range: 22.0-26.0; Units: MEQ/L; Status: F Test: ABG O2 SATURATION; Value: 81.1; Range: 95.0-99.0; Abnormal: Below low normal; Units: %; Status: F Test: ABG DEVICE; Value: NASAL ISAIAH; Status: F Lab Order: BRAIN NATIURETIC PEPTIDE; SPEC'M 04/22/16 21:48 Test: BRAIN NATRIURETIC PEPTIDE; Value: 78.6; Range: <100; Units: PG/ML; Status: F Lab Order: COMPLETE COMPHRENSIVE METABOLI; SPEC'M 04/22/16 21:48 Test: GLUCOSE, FASTING; Value: 123; Range: 80-110; Abnormal: Above high normal; Units: MG/DL; Status: F Test: BLOOD UREA NITROGEN; Value: 10; Range: 7-18; Units: MG/DL; Status: F Test: CREATININE FOR GFR; Value: 0.90; Range: 0.55-1.02; Units: MG/DL; Status: F Test: GLOMERULAR FILTRATION RATE; Value: > 60.0; Range: >45; Status: F Test: SODIUM LEVEL; Value: 136; Range: 136-145; Units: MEQ/L; Status: F Test: POTASSIUM SERUM; Value: 3.3; Range: 3.5-5.1; Abnormal: Below low normal; Units: MEQ/L; Status: F Test: CHLORIDE LEVEL; Value: 100; Range: 98-107; Units: MEQ/L; Status: F Test: CARBON DIOXIDE LEVEL; Value: 24; Range: 21-32; Units: MEQ/L; Status: F Test: ANION GAP; Value: 12; Range: 8-16; Units: MEQ/L; Status: F Test: CALCIUM LEVEL; Value: 8.8; Range: 8.8-10.2; Units: MG/DL; Status: F Test: AST/SGOT; Value: 27; Range: 15-37; Units: U/L; Status: F Test: ALT/SGPT; Value: 57; Range: 12-78; Units: U/L; Status: F Test: ALKALINE PHOSPHATASE; Value: 56; Range: 45-117; Units: U/L; Status: F Test: BILIRUBIN,TOTAL; Value: 0.4; Range: 0.2-1.0; Units: MG/DL; Status: F Test: TOTAL PROTEIN; Value: 8.0; Range: 6.4-8.2; Units: GM/DL; Status: F Test: ALBUMIN; Value: 4.0; Range: 3.2-5.2; Units: GM/DL; Status: F Test: ALBUMIN/GLOBULIN RATIO; Value: 1.00; Range: 1.00-1.93; Status: F Test Note: ; Units are mL/min/1.73 m2 Chronic Kidney Disease Staging per NKF: Stage I & II GFR >=60 Normal to Mildly Decreased Stage III GFR 30-59 Moderately Decreased Stage IV GFR 15-29 Severely Decreased Stage V GFR <15 Very Little GFR Left ESRD GFR <15 on GROC[employer] STORE COURTESY CLERK Lab Order: CBC WITH DIFFERENTIAL; SPEC'M 04/22/16 21:48 Test: WHITE BLOOD COUNT; Value: 9.6; Range: 4.0-10.0; Units: K/mm3; Status: F Test: RED BLOOD COUNT; Value: 5.39; Range: 4.00-5.40; Units: M/mm3; Status: F Test: HEMOGLOBIN; Value: 15.5; Range: 12.0-16.0; Units: g/dl; Status: F Test: HEMATOCRIT; Value: 45.1; Range: 36.0-47.0; Units: %; Status: F Test: MEAN CORPUSCULAR VOLUME; Value: 83.8; Range: 80.0-96.0; Units: fl; Status: F Test: MEAN CORPUSCULAR HEMOGLOBIN; Value: 28.7; Range: 27.0-33.0; Units: pg; Status: F Test: MEAN CORPUSCULAR HGB CONC; Value: 34.3; Range: 32.0-36.5; Units: g/dl; Status: F Test: RED CELL DISTRIBUTION WIDTH; Value: 12.9; Range: 11.5-14.5; Units: %; Status: F Test: PLATELET COUNT, AUTOMATED; Value: 315; Range: 150-450; Units: k/mm3; Status: F Test: NEUTROPHILS %; Value: 69.5; Range: 36.0-66.0; Abnormal: Above high normal; Units: %; Status: F Test: LYMPH %; Value: 23.1; Range: 24.0-44.0; Abnormal: Below low normal; Units: %; Status: F Test: MONO %; Value: 4.8; Range: 0.0-5.0; Units: %; Status: F Test: EOS %; Value: 0.7; Range: 0.0-3.0; Units: %; Status: F Test: BASO %; Value: 0.4; Range: 0.0-1.0; Units: %; Status: F Test: LARGE UNSTAINED CELL %; Value: 1.6; Range: 0.0-4.0; Units: %; Status: F Test: NEUTROPHILS #; Value: 6.7; Range: 1.8-7.7; Units: K/mm3; Status: F Test: LYMPH #; Value: 2.2; Range: 1.5-4.5; Units: K/mm3; Status: F Test: MONO #; Value: 0.5; Range: 0.0-0.8; Units: K/mm3; Status: F Test: EOS #; Value: 0.1; Range: 0.0-0.50; Units: K/mm3; Status: F Test: BASO #; Value: 0.0; Range: 0.0-0.2; Units: K/mm3; Status: F Test: LARGE UNSTAINED CELL #; Value: 0.2; Range: 0.0-0.4; Units: K/mm3; Status: F Lab Order: LACTIC ACID LEVEL, LACTATE; SPEC'M 04/22/16 21:49 Test: LACTIC ACID SEPSIS PROTOCOL; Value: 2.2; Range: 0.4-2.0; Abnormal: Above upper panic limits; Units: MMOL/L; Status: F Lab Order: MAGNESIUM LEVEL; 04/22/16 21:48 Test: MAGNESIUM LEVEL; Value: 2.0; Range: 1.8-2.4; Units: MG/DL; Status: F Lab Order: THYROID PROFILE; 04/22/16 21:48 Test: T UPTAKE; Value: 35; Range: 30-39; Units: %; Status: F Test: THYROXINE (T4); Value: 13.2; Range: 4.5-12.0; Abnormal: Above high normal; Units: UG/DL; Status: F Test: FREE THYROXINE INDEX; Value: 4.6; Range: 1.3-4.8; Units: %; Status: F Test: THYROID STIMULATING HORMONE; Value: 1.710; Range: 0.358-3.740; Units: uIU/ML; Status: F Lab Order: ERYTHROCYTE SEDIMENTATION RATE; 04/22/16 21:48 Test: ERYTHROCYTE SEDIMENTATION RATE; Value: 5; Range: 0-30; Units: mm/hr; Status: F Lab Order: C REACTIVE PROTEIN QUANTITATIV; 04/22/16 21:48 Test: C REACTIVE PROTEIN QUANTITATIV; Value: < 0.30; Range: 0.00-0.30; Units: MG/DL; Status: F Lab Order: HEMOGLOBIN A1C; 04/22/16 21:48 Test: HEMOGLOBIN A1c; Value: 6.6; Range: 4.5-6.2; Abnormal: Above high normal; Units: %; Status: F Test: ESTIMATED AVERAGE GLUCOSE; Value: 143; Range: 60-110; Abnormal: Above high normal; Units: MG/DL; Status: F Lab Order: AMYLASE; 04/22/16 21:48 Test: AMYLASE; Value: 27; Range: 25-115; Units: U/L; Status: F Lab Order: LIPASE; 04/22/16 21:48 Test: LIPASE; Value: 106; Range: 73-393; Units: U/L; Status: F Lab Order: ARTERIAL BLOOD GAS; [facility] 04/22/16 21:37 Test: ABG pH (ARTERIAL); Value: 7.505; Range: 7.350-7.450; Abnormal: Above high normal; Units: UNITS; Status: F Test: ABG PARTIAL PRESSURE CO2; Value: 30.0; Range: 35.0-45.0; Abnormal: Below low normal; Units: mmHg; Status: F Test: ABG PARTIAL PRESSURE O2; Value: 90.8; Range: 75.0-100.0; Units: mmHg; Status: F Test: ABG TOTAL CO2; Value: 24.1; Range: 23.0-31.0; Units: MEQ/L; Status: F Test: ABG HCO3; Value: 23.1; Range: 22.0-26.0; Units: MEQ/L; Status: F Test: ABG BASE EXCESS; Value: 1.2; Range: -2.0-2.0; Status: F Test: ABG STANDARD HCO3; Value: 25.5; Range: 22.0-26.0; Units: MEQ/L; Status: F Test: ABG O2 SATURATION; Value: 97.6; Range: 95.0-99.0; Units: %; Status: F Lab Order: CARDIAC MARKER PANEL; [facility] 04/22/16 21:48 Test: CPK CREATINE PHOSPHOKINASE; Value: 72; Range: 26-192; Units: U/L; Status: F Test: CK-MB VALUE MASS; Value: 5.6; Range: 0.0-3.6; Abnormal: Above high normal; Units: NG/ML; Status: F Test: MB/CK RELATIVE INDEX; Value: 7.77; Range: < OR =4; Abnormal: Above high normal; Status: F Test: TROPONIN I; Value: 0.09; Range: < 0.10; Units: NG/ML; Status: F Test Note: ; DIAGNOSIS CRITERIA MMB ng/ml Relative Index (RI) NON-AMI < or = 5 N/A MYLES ZONE > 5 < or = 4 AMI > 5 > 4 Radiology Order: CT Chest Angio R/O PE Test: CT Chest Angio R/O PE REASON FOR EXAMINATION: Shortness of Breath; ; CT angiogram of the chest; Clinical statement: shortness of breath.; Technique: Multiple axial CT images were obtained from the thoracic inlet through the upper abdomen a; fter a bolus administration of nonionic intravenous contrast. Coronal and sagittal reconstructions we; re also obtained.; No comparison is available.; Findings: The pulmonary arteries are well-opacified with contrast, with no intraluminal filling defec; ts to suggest embolism. The thoracic aorta is unremarkable. Thyroid gland is within normal limits. Th; ere is no thoracic lymphadenopathy. There are no pericardial or pleural effusions. The lungs are ayden; r. Limited imaging of the upper abdomen is unremarkable. There is a 3 cm simple cyst in the posterior; right kidney. There are no suspicious osseous lesions.; Impression: Unremarkable CT examination of the chest. No evidence of pulmonary embolism.; ; Radiology Order: CT Head without contrast Test: CT Head without contrast REASON FOR EXAMINATION: HEADACHE AMS HYPOXIA; ; CT of the head; Clinical history: Headache.; Technique: Multiple axial CT images were obtained through the head without administration of contrast; .; Findings: The ventricles and sulci are symmetric bilaterally. There is no evidence of acute hemorrhag; e or infarct. There is no midline shift, mass effect, or extra-axial fluid collection. The osseous st; ructures are unremarkable. The visualized paranasal sinuses and mastoid air cells are clear.; Impression: Negative study.; ; Outcome: 21:43 Decision to Hospitalize by Provider. cs11 23:16 Discharge Assessment: Patient awake, alert and oriented x 3. No cognitive and/or mgs functional deficits noted. Patient verbalized understanding of disposition instructions. patient administered narcotics - no. The following High Risk Discharge criteria are identified: None. Admitted to ICU accompanied by nurse, accompanied by tech, family with patient, via stretcher, with oxygen, on monitor, with chart. Condition: stable. CT Study completed. Property :Personal belongings accompany Pt. 23:17 Patient left the ED. mgs Signatures: Dispatcher [employer] EDMS Mable Pablo,RT RT Baljinder Lennon, Band Bias Machine Operator Unit ml3 Abeba Schmidt, TIRE SORTER TIRE SORTER Bryan Bartlett DO DO cs11 Nalini Grace RN RN mlc Noah Levy,RN RN mgs Nuha Bowman,RT RT lf2 Megan, Tanisha, TIRE SORTER TIRE SORTER cln Chart Complete MTDD
--- NOTE | 2016-04-25 00:19 | EDDOCDS ---
Physician Documentation [facility] Name: Bindu Grullon Age: 65 yrs Sex: Female : 1950 Arrival Date: 04/22/2016 Time: 19:33 Bed 4 Private MD: Disposition: 04/22/16 21:43 Hospitalization ordered by Krystal Henderson for Inpatient Admission. Preliminary diagnosis is Hypoxemia. - Bed requested for M ICU. - Status is Inpatient Admission. mgs - Condition is Stable. - Problem is an ongoing problem. - Symptoms have improved. Historical: - Allergies: PENICILLINS; - Home Meds: 1. Plavix 75 mg Oral tab 1 tab once daily 2. acetaminophen 500 mg Oral cap 1 cap as needed 3. aspirin 81 mg Oral tab 1 tab once daily 4. Co Q-10 100 mg oral cap 5. hydrochlorothiazide 12.5 mg Oral tab 1 tab once daily 6. lisinopril 2.5 mg Oral tab 1 tab once daily 7. metformin 500 mg Oral Tb24 1 tab once daily 8. Oxygen 3 liters 9. pravastatin 20 mg oral tab 1 tab once daily 10. Protonix 40 mg Oral grps 1 packet once daily 11. Vitamin D Oral 2000 units daily 12. Zyrtec 10 mg Oral tab 1 tab as needed 13. diltiazem HCl 120 mg Oral cpER 1 cap once daily - PMHx: Sinusitis; paroxysmal ventricular tachycardia; Bronchitis; Hypercholesterolemia; breast cancer; diabetes mellitus; Hypertension; - PSHx: Cholecystectomy; Lumpectomy- Left; Tubal ligation; - Social history: Smoking status: Patient states was never smoker of tobacco. No barriers to communication noted, The patient speaks fluent Ukrainian. - Family history: Not pertinent. - : The pt / caregiver states he / she is on anticoagulants: Plavix. Home medication list is obtained from the facility APR. - Exposure Risk Screening:: None identified. Vital Signs: 04/22 19:50 BP 156 / 99; Pulse 98; Resp 22; Temp 97.5; Pulse Ox 84% on 15% Non-rebreather mask; mgs 20:23 BP 147 / 95 (auto/); mgs 20:23 Pulse 104 MON; Pulse Ox 75% ; mgs 20:48 BP 147 / 95; Pulse 88; Resp 20; Pulse Ox 92% on Non-rebreather mask; mgs 20:48 BP 134 / 83 (auto/); mgs 20:48 Pulse 88 MON; Pulse Ox 92% ; mgs 21:03 BP 133 / 84 (auto/); mgs 21:03 Pulse 86 MON; Pulse Ox 93% ; mgs 21:18 BP 120 / 83 (auto/); mgs 21:18 Pulse 86 MON; Pulse Ox 96% ; mgs 21:33 BP 129 / 86 (auto/); mgs 21:33 Pulse 86 MON; Pulse Ox 96% ; mgs 22:18 BP 140 / 82 (auto/); mgs 22:18 Pulse 86 MON; Pulse Ox 92% ; mgs 22:33 BP 131 / 80 (auto/); mgs 22:33 Pulse 90 MON; Pulse Ox 99% ; mgs 22:48 BP 122 / 77 (auto/); mgs 22:48 Pulse 84 MON; Pulse Ox 97% ; mgs 23:03 BP 119 / 77 (auto/); mgs 23:03 Pulse 82 MON; Pulse Ox 96% ; mgs 23:12 BP 127 / 85 LA Supine (auto/reg); Pulse 85 MON; Resp 20 S; Temp 98.3(TE); Pulse Ox 97% cln on 15% Non-rebreather mask; Pain 0/10; 23:12 BP 127 / 85 (auto/); mgs 23:12 Pulse 86 MON; Pulse Ox 96% ; mgs MDM: 19:59 IV Saline Lock ordered. cs11 19:59 Call Respiratory ordered. cs11 20:00 -Arterial Blood Gas Ordered. EDMS 20:00 CT Chest Angio R/O PE Ordered. EDMS 20:03 Call Respiratory complete. mgs 20:20 Chest, 1 View Ordered. EDMS 20:47 ELECTROCARDIOGRAM ADULT ordered. EDMS 20:48 BRAIN NATIURETIC PEPTIDE Ordered. EDMS 20:48 COMPLETE COMPHRENSIVE METABOLI Ordered. EDMS 20:48 CBC WITH DIFFERENTIAL Ordered. EDMS 20:48 LACTIC ACID LEVEL, LACTATE Ordered. EDMS 20:48 MAGNESIUM LEVEL Ordered. EDMS 20:48 THYROID PROFILE Ordered. EDMS 20:48 ERYTHROCYTE SEDIMENTATION RATE Ordered. EDMS 20:48 C REACTIVE PROTEIN QUANTITATIV Ordered. EDMS 20:48 HEMOGLOBIN A1C Ordered. EDMS 20:50 MRSA SCREEN Ordered. EDMS 20:50 RESPIRATORY PANEL Ordered. EDMS 20:50 URINE CULTURE Ordered. EDMS 20:52 NPO DIET ordered. EDMS 20:53 URINALYSIS Ordered. EDMS 20:53 CARDIAC MARKER PANEL Ordered. EDMS 20:53 BASIC METABOLIC PROFILE Ordered. EDMS 20:53 MAGNESIUM LEVEL Ordered. EDMS 20:53 CBC WITH DIFFERENTIAL Ordered. EDMS 20:55 Admission / Observation Status ordered. EDMS 20:59 AMYLASE Ordered. EDMS 20:59 LIPASE Ordered. EDMS 21:11 Redraw ABG (put time in details section) ordered. mgs 21:11 Redraw ABG (put time in details section) complete. ml3 21:13 ARTERIAL BLOOD GAS Ordered. EDMS 21:32 CARDIAC MARKER PANEL Ordered. EDMS 21:34 CT Head without contrast Ordered. EDMS 21:37 BED REQUEST+ADM ordered. EDMS 22:13 ECHOCARD,DOPPLER/COLOR FLOW ordered. EDMS 22:40 CARDIAC MARKER PANEL Ordered. EDMS 22:42 Financial registration complete. zo Signatures: Dispatcher [employer] EDMS Karen Pink, RN RN Baljinder Monte, [employer] Director Unit ml3 [place], Chapis zo Bryan Davidson, DO cs11 Noah Levy,RN NATAN mgs The chart was reviewed and I authenticate all verbal orders and agree with the evaluation and treatment provided.Corrections: (The following items were deleted from the chart) 20:59 20:52 LIPASE ordered. EDMS EDMS 20:59 20:52 AMYLASE ordered. EDMS EDMS 21:30 20:53 CARDIAC MARKER PANEL ordered. EDMS EDMS 22:40 20:53 CARDIAC MARKER PANEL ordered. EDMS EDMS Chart Complete MTDD
[2016-04-25] MEDS: METOPROLOL TART 50 MG TAB PO SCH ×2 (00:23→05:03)
[2016-04-25 04:00] VITALS: BP 112/74
[2016-04-25 05:01] LABS: BASO % 0.5 % (0.0-1.0); EOS # 0.2 K/mm3 (0.0-0.50); EOS % 2.9 % (0.0-3.0); LARGE UNSTAINED CELL # 0.2 K/mm3 (0.0-0.4); LYMPH # 2.7 K/mm3 (1.5-4.5); LYMPH % 32.5 % (24.0-44.0); MEAN CORPUSCULAR HEMOGLOBIN 28.5 pg (27.0-33.0); MEAN CORPUSCULAR HGB CONC 33.6 g/dl (32.0-36.5); MEAN CORPUSCULAR VOLUME 84.9 fl (80.0-96.0); MONO # 0.4 K/mm3 (0.0-0.8); MONO % 4.2 % (0.0-5.0); NEUTROPHILS # 4.7 K/mm3 (1.8-7.7); NEUTROPHILS % 57.9 % (36.0-66.0); PLATELET COUNT, AUTOMATED 276 k/mm3 (150-450); RED CELL DISTRIBUTION WIDTH 12.9 % (11.5-14.5); WHITE BLOOD COUNT 8.2 K/mm3 (4.0-10.0)
[2016-04-25 05:03] VITALS: BP 112/74
[2016-04-25] MEDS: HEPARIN SOD (PORCINE) 5000 UNITS/ML VIAL SC SCH (05:05)
[2016-04-25 05:24] LABS: ANION GAP 8 MEQ/L (8-16); BLOOD UREA NITROGEN 10 MG/DL (7-18); CALCIUM LEVEL 8.4 MG/DL (8.8-10.2); CARBON DIOXIDE LEVEL 26 MEQ/L (21-32); CHLORIDE LEVEL 105 MEQ/L (98-107); CREATININE FOR GFR 0.78 MG/DL (0.55-1.02); GLOMERULAR FILTRATION RATE > 60.0 (>45); GLUCOSE, FASTING 121 MG/DL (80-110); POTASSIUM SERUM 3.4 MEQ/L (3.5-5.1); SODIUM LEVEL 139 MEQ/L (136-145)
[2016-04-25] MEDS ORDERED: POTASSIUM CHLORIDE 10 MEQ SR TABLET PO ONE (06:45)
[2016-04-25] MEDS: HumaLOG INSULIN (NovoLOG) PER UNIT SC SCH (07:30)
[2016-04-25 08:00] VITALS: BP 137/84
--- NOTE | 2016-04-25 08:06 | ECHO ---
DATE OF PROCEDURE: 04/24/2016 This is only limited echocardiogram with IV administration of contrast in the form of agitated normal saline to look for evidence of intracardiac shunt. Only a few apical views were obtained. The study though is markedly positive revealing fairly dramatic [id number] shunt that occurs virtually instantaneously with appearance of the contrast in the right-sided chambers. There is only minimal delay and the contrast is apparent in left-sided chambers as well. This favors intracardiac versus extracardiac shunt.
[2016-04-25] MEDS: LACTOBACILLUS ACIDOPHILUS CAP (BACID) PO SCH (08:36)
[2016-04-25] MEDS: SODIUM CHLORIDE NASAL 0.65% SPRAY BTL (OCEAN) SCH (08:37)
[2016-04-25] MEDS: DOXYCYCLINE HYCLATE 100 MG TAB PO SCH (08:37)
[2016-04-25] MEDS: PANTOPRAZOLE 40MG TAB (PROTONIX) PO SCH (08:37)
[2016-04-25 12:00] VITALS: BP 131/76
--- NOTE | 2016-04-25 18:41 | IPN ---
DATE: 04/25/2016 Mrs. Grullon had a pretty good night. There has not been any recurrence of supraventricular tachycardia (SVT). She continues to be hypoxic though and requires a lot of oxygen to maintain satisfactory oxygenation. Yesterday evening she had "bubble study." It revealed evidence for very prominent right for left shunt with early crossing of the contrast from right-sided to left-sided chambers. Vital signs: Blood pressure 137/84, heart rate 50s and 60s, afebrile. Saturation 95% on 10 liters of oxygen by high-flow nasal cannula. Weight 86.1 kg. She is alert, oriented and appropriate. Her jugular venous pulse is not up. Lungs are clear. Heart exam reveals regular rhythm without gallop or murmur. Abdomen is soft. There is still mild epigastric tenderness but improved from before. No peripheral edema. Neurologically intact. LABORATORY: Normal CBC and normal basic metabolic panel, but for slight hypokalemia with potassium 3.4. ASSESSMENT/PLAN: Mrs. Grullon is a 65-year-old female who has no prior history of coronary artery disease who presented with recurrent SVT. It looks like the episodes have been controlled by a high-dose beta blockers. The more difficult to control issue is that of prominent hypoxemia seems to be markedly aggravated in an upright position. There is an evidence for right to left shunt based on echocardiogram performed with contrast. At this point it is very likely that the patient has either patent foramen ovale (PFO) or atrial septal defect (ASD) of some sorts. Alternatively it still can be arteriovenous malformation (AVM) but the amount of crossing contrast on echocardiogram is very prominent making it less likely. The patient will need transesophageal echocardiogram and cardiac catheterization because of prominent hypoxemia. I suspect that she will need a corrective action once the shunt is identified, provided she does not have severe pulmonary hypertension which seems unlikely. I had a discussion with the patient regarding management. Because we cannot accomplish coronary angiogram and cardiac catheterization here I think it seems to be more reasonable that both procedures are performed in [place]. I spoke with Dr. Egan who accepted the patient for transfer. I spoke with the patient and her family and explained the rationale. They were agreeable to proceed. ALVIN
--- NOTE | 2016-04-25 20:36 | DSES ---
DATE OF ADMISSION: 04/22/2016 DATE OF DISCHARGE: 04/25/2016 PRIMARY CARE PROVIDER: Dr. Joseph Ibrahim CONSULTANTS: Customer Equipment Engineer Dr. Mcdowell PROCEDURES: Echocardiogram and cardiac Doppler study. COMPLICATIONS: None. ADMISSION/DISCHARGE DIAGNOSIS: Respiratory failure with severe hypoxia. Cardiac shunt. Sinusitis with recent bronchitis. History of supraventricular tachycardia. Diabetes. Hypertension. Dyslipidemia. History of breast cancer status post lobectomy and radiation in 2000. Gastroesophageal reflux disease. Irritable bowel syndrome. Glaucoma. HOSPITALIZATION COURSE: Patient is a 65-year-old female, was transferred from [facility] to [facility] on 04/22/2016 for upper level care. Initially patient presented to the [facility] for difficulty breathing and abdominal pain. In the [facility] facility had a episode of supraventricular tachycardia (SVT) and feeder operator automatic Dr. King was contacted and recommended transfer to [facility] for further management. During the process, patient was found to have a severe hypoxia requiring high flow nasal cannula and patient was noted to have significant desaturation when patient tried to sit up or stand up. Initially patient continued to be stabilized with 15 liters nasal cannula. Patient was started on a Cardizem drip, and after hours patient's heart rate converted to sinus and the patient's heart rate medication is being adjusted by our consulted feeder operator automatic Dr. Mcdowell. Initially cardio echogram was performed which did not show any significant findings and patient's CT angiogram was also reviewed which did not show any abnormalities and CT abdomen also reviewed which did not show any changes contributing to patient's presentation. On 04/24/2016 patient underwent cardiac Doppler study to look for possible cardiac shunt. Result came back positive and reviewed by two cardiologists and finding was discussed with patient and the treatment involved in the cardiac catheterization which could not be provided in our facility, therefore Dr. Mcdowell contacted Dr. Akil Amin in [facility] and patient is transferred from [facility] to [facility] on 04/25/2016. OBJECTIVE: Vital signs: Temperature 98, pulse 74, respiration 18, blood pressure 131/76, pulse ox is 93% with 10 liter nasal cannula. WBC 8.2, hemoglobin 13.8, hematocrit 41. Platelet count is 276. Sodium 139, potassium 3.4, chloride 105, carbon dioxide 26, BUN 10, creatinine 0.79, glomerular filtration rate (GFR) greater than 60. Fasting glucose is 121, calcium 8.4, troponin I 0.04. ABG on admission showed pH of 7.557, PCO2 is 23.8, PO2 is 40.2, HDL is 20.7, total CO2 is 21.4. MICROBIOLOGY: Urine culture is negative. Respiratory virus panel is negative. IMAGING: CT angiogram of the chest shows no evidence of pulmonary embolism (PE). Chest x-ray shows mild bibasilar fibroatelectatic change. CT of the head shows negative studies. DISCHARGE INSTRUCTION: 1. Patient will be transferred to [facility] by ambulance. 2. Diet as tolerated. 3. Activity as tolerated. DISCHARGE TIME: Greater than 30 minutes. DISCHARGE CONDITION: Stable.
--- NOTE | 2016-04-26 08:16 | ECHO ---
DATE OF PROCEDURE: 04/24/2016 DATE OF : 1950 AGE: 65 PATIENT LOCATION: Room 3209 REASON FOR ECHOCARDIOGRAM: Hypoxemia, possible intracardiac shunt. 2D images revealed normal right heart chambers and normal left ventricular systolic function. Bubble study done with revealed bubbles from the right side of the heart to the left side and in one of the scans, and after the second bit consistent with an intracardiac shunt, possible related to a sinus venous atrial septal defect. IMPRESSION: As noted above. Positive bubble study for intracardiac shunt. Would benefit from a transesophageal echocardiogram and if she is going for repair, a cardiac catheterization.
== END 2016-04-25 12:05 | disposition short-term general hospital (02) | DRG 306 ==
LOC: M ED 19:33 → M ED INP 20:48 → M ICU 23:24
PROVIDERS: ADMIT General Practice; ATTEND Internal Medicine
DX: Q21.0 Ventricular septal defect (principal); J96.01 Acute respiratory failure with hypoxia; I47.2 Ventricular tachycardia; E10.9 Type 1 diabetes mellitus without complications; I10 Essential (primary) hypertension; E78.5 Hyperlipidemia, unspecified; K21.9 Gastro-esophageal reflux disease without esophagitis; K58.1 Irritable bowel syndrome with constipation; E55.9 Vitamin D deficiency, unspecified; H40.9 Unspecified glaucoma; J32.9 Chronic sinusitis, unspecified; Z85.3 Personal history of malignant neoplasm of breast; Z79.02 Long term (current) use of antithrombotics/antiplatelets; Z79.82 Long term (current) use of aspirin; Z79.84 Long term (current) use of oral hypoglycemic drugs; Z79.899 Other long term (current) drug therapy; Z99.81 Dependence on supplemental oxygen; Z88.0 Allergy status to penicillin; Z92.3 Personal history of irradiation

== ENCOUNTER 2016-05-03 12:20 | Inpatient (IN) | payer MEDICARE, OTHER ==
[~2016-05-03] VITALS: Ht 165.1 cm; Wt 97.5 kg
[~2016-05-03 12:20] MED LIST: ACET50TAOT PO; ASPI81TAEC PO; CEFD1CAP8 PO; CO Q1CAP PO; DILT120C82 PO; HYDR12CA PO; LISI2.5T3 PO; METF500T PO; NYST100024 TOP; PANT40TA2 PO; PLAV75TA38 PO; PRAV20TA2 PO; VITA200015 PO; ZYRT10TA2 PO
[2016-05-03] MEDS ORDERED: FURO40TA2 PO ×2 (12:46→16:40)
[2016-05-03] MEDS ORDERED: METO100T PO ×2 (12:46→16:40)
[2016-05-03 14:29] LABS: BASO % 0.5 % (0.0-1.0); EOS # 0.1 K/mm3 (0.0-0.50); EOS % 0.9 % (0.0-3.0); LARGE UNSTAINED CELL # 0.1 K/mm3 (0.0-0.4); LARGE UNSTAINED CELL % 1.6 % (0.0-4.0); LYMPH # 2.7 K/mm3 (1.5-4.5); LYMPH % 31.3 % (24.0-44.0); MEAN CORPUSCULAR HEMOGLOBIN 29.2 pg (27.0-33.0); MEAN CORPUSCULAR HGB CONC 34.6 g/dl (32.0-36.5); MEAN CORPUSCULAR VOLUME 84.2 fl (80.0-96.0); MONO # 0.5 K/mm3 (0.0-0.8); MONO % 5.3 % (0.0-5.0); NEUTROPHILS # 5.3 K/mm3 (1.8-7.7); NEUTROPHILS % 60.3 % (36.0-66.0); PLATELET COUNT, AUTOMATED 295 k/mm3 (150-450); RED CELL DISTRIBUTION WIDTH 13.4 % (11.5-14.5); WHITE BLOOD COUNT 8.7 K/mm3 (4.0-10.0)
--- NOTE | 2016-05-03 14:45 | REP ---
CHEST X-RAY: Two views. HISTORY: Near-syncope. Comparison chest x-ray is from April 22, 2016. FINDINGS: Oxygen delivery tubing is seen. There are clips in the right upper quadrant of the abdomen. The lungs are well inflated and clear. Heart size is normal. The aorta is tortuous. Pulmonary vasculature is not increased. IMPRESSION: No active disease. Signed by Brandyn Hernández MD 05/03/2016 03:28 P
[2016-05-03 15:03] LABS: ALBUMIN 4.4 GM/DL (3.2-5.2); ALKALINE PHOSPHATASE 59 U/L (45-117); ALT/SGPT 55 U/L (12-78); ANION GAP 13 MEQ/L (8-16); AST/SGOT 34 U/L (15-37); BILIRUBIN,TOTAL 0.6 MG/DL (0.2-1.0); BLOOD UREA NITROGEN 16 MG/DL (7-18); CALCIUM LEVEL 9.5 MG/DL (8.8-10.2); CARBON DIOXIDE LEVEL 30 MEQ/L (21-32); CHLORIDE LEVEL 98 MEQ/L (98-107); CREATININE FOR GFR 1.01 MG/DL (0.55-1.02); GLOMERULAR FILTRATION RATE 58.2 (>45); GLUCOSE, FASTING 107 MG/DL (80-110); SODIUM LEVEL 141 MEQ/L (136-145); TOTAL PROTEIN 8.4 GM/DL (6.4-8.2)
[2016-05-03 15:08] LABS: POTASSIUM SERUM 2.9 MEQ/L (3.5-5.1)
[2016-05-03] MEDS ORDERED: POTASSIUM CHLORIDE 10% LIQ 20 MEQ/15 ML UDC PO ONE (15:15)
[2016-05-03] MEDS ORDERED: KCL 10MEQ IN 100ML SWI (KRUN) 10 MEQ in APPROPRIATE DILUENT 1 EA IV ONE ×4 (15:15→16:30)
[2016-05-03] MEDS ORDERED: NS 1,000 ML IV ONE (15:15)
[2016-05-03] MEDS ORDERED: BIMA01SOL OU (16:40)
[2016-05-03 16:46] LABS: MAGNESIUM LEVEL 1.9 MG/DL (1.8-2.4)
[2016-05-03] MEDS ORDERED: NS 1,000 ML IV SCH (18:51)
[2016-05-03] MEDS ORDERED: ACETAMINOPHEN 500 MG TAB PO PRN (19:00)
--- NOTE | 2016-05-03 19:34 | HPEPDOC ---
General Date of Admission May 03, 2016 at 19:07 Chief Complaint The patient is a 65-year-old female admitted with a reason for visit of Abd Pain ; Hypokalemia. History of Present Illness This H&P is for Admission Date: 05/03/16: PRIMARY CARE PROVIDER: Dr. Joseph Ibrahim CHIEF COMPLAINT: PCP sent her to the ED for dehydration, vomiting and nausea, and diarrhea. HISTORY OF PRESENT ILLNESS: This is a 65 year-old F with a PMH significant for DM, HTN, hyperlipidemia, breast cancer status-post lumpectomy and radiation (2000), GERD , nocturnal hypoxia, mitral valve problem, IBS, vitamin D deficiency, glaucoma, mild/grade 1 diastolic heart failure with ?pulmonary HTN, frequent sinusitis infections with recent sinusitis/bronchitis, hypoxia with sitting or standing from a lying flat position, paroxysmal ventricular/supraventricular tachycardia , platypnea-orthodeoxia syndrome, respiratory failure with severe hypoxia, and intracardiac shunt, was sent to [facility] by PCP for patient reports of dehydration, nausea, vomiting, and diarrhea. As per PCPs note, it was stated that the patient has dehydration, has lost 5 pounds in just the last 4 days and 25 pounds since April 08, and is being sent to [facility] ED for fluids, labs, imaging and follow-up pending results. It seems the PCP had a concern for a GI infection such as C. difficile colitis and thought that there would be some need for adjustment to the patient's medications as well. Please refer to discharge summary from 04/25/2016 from [facility] for further details of patient's background as patient was giving me an unclear history and unclear timeline of events preceding her condition today. It seems that the patient has been since at [facility] ~3 times since March according to the medical record and what patient reports for cardiac issues, deoxygenation/ hypoxia, as well as for abdominal pain and SOB. It seems the patient was recently discharged from [facility] in [place] after a cardiac catheterization and a transesophageal echocardiogram study for which results need to be obtained. From review of the chart and medical record, the patient seems to have a supraventricular tachycardia which at times converts to sinus rhythm. Dr. Mcdowell has also seen this patient from prior hospitalization at [facility] when the patient was admitted on 04/22/2016 for hypoxia and paroxysmal SVT. He did a workup including a regular echocardiogram study which was unremarkable and normal except for grade 1 diastolic dysfunction, mild aortic stenosis, and a dilated ascending aorta. The echocardiogram has showed a normal left ventricular size and systolic front function with an ejection fraction of 65-70 % with no segmental wall motion abnormalities or pericardial effusion. He then ordered a bubble study which was positive for an intracardiac shunt. From there , he had recommended a transesophageal echocardiogram and a cardiac catheterization for which the patient was transferred to [facility] in [place]. The patient stated that she had both studies done, was actually treated with doxycycline at [place] for sinusitis and she started to feel better with sinus pressure in her face (though she also reported some GI upset with this medication), and was home on Friday (I believe). Patient seems to have also been treated/placed on clindamycin for sinusitis/bronchitis during recent [facility] hospitalization according to previous H&P note. Earlier, she states that she was also treated with azithromycin for a bronchitis. Today, the patient went to her PCPs office at around 11:30 AM for an ER follow-up. This morning, patient states she was weak when she left her home, felt a little lightheaded this a.m. states that her oxygen was also low at 79% this morning at her house and she had placed herself back on oxygen until she had to go to her PCPs office. When it was checked at her PCP's office, she reports her O2 saturation was 92%. Normally, she uses 2 L of oxygen every night which she had began taking around 2 years ago after a [facility] pulse ox evaluation. (States she has a appointment with pulmonology doctors in June for a checkup--does not know if she has sleep apnea.) She also reports that she took juice and toast after a lightheaded episode, and her friend took her to her PCPs office after which she was of course brought here. She stated that anything she had to eat or drink would cause abdominal pain on her right side under her right side which would move across to the left side. She states that she has a loss of appetite she cannot eat normally like she did before due to postprandial pain, becomes nauseated, and has developed progressively worsening weakness. She states that anytime that she lies flat, she actually has no symptoms and is feeling fine. This seems to be related to her history of platypnea. However, when she stands up, and starts moving, she starts having symptoms of lightheadedness, and pressure/pain in her right upper quadrant of her abdomen and the middle of her epigastric area. She also states that her tongue taste differently. When she intakes food. She reports that yesterday, she had diarrhea which was brown and stool that turned dark brown. She also developed dry heaves yesterday night and the night before. She denies any hematochezia, but admits to a loss of appetite. States that she has been eating Jell-O, pudding, toast. States she has had no recent travel or sick contacts at home. As an aside: In addition, according to Dr. Ibrahim's note (PCP) from earlier today, the patient had not been feeling well, she had stopped doxycycline as it was upsetting her stomach, she had nausea, diarrhea, and some fluttering but her home BPs and HR were okay. She had hospitalizations at , [facility], and [facility]. A SONIA and heart catheterization were done on April 26 and she had seen clay pigeon setter Dr. Akil Webster and her oxygen was able to be stopped except for what she uses at night. Apparently, the patient was started on lasix and on metoprolol, was diagnosed with mild pulmonary HTN and diastolic heart failure. Patient herself reported to me that she has been placed on lopressor BID and lasix daily. In the ED, a workup was done which was significant for hypokalemia with a potassium level of 2.9, negative lipase, and normal BNP, negative troponin, negative orthostatics, a negative chest x-ray which showed no active disease, and normal vital signs. An EKG was done which showed sinus rhythm with occasional PVCs at a rate of 65, some borderline left axis deviation, moderate voltage criteria for left ventricular hypertrophy, and nonspecific ST-T wave abnormalities. EKG done today was different from April 24 which showed sinus rhythm with first-degree AV block, left atrial hypertrophy, and nonspecific T- wave abnormality with borderline left axis deviation with a rate of 66. A urinalysis was also done which is pending. The patient was administered IV fluids, 20 mEq of potassium IV, as well as oral potassium. The patient's vitals were stable throughout and the patient remained afebrile. ALLERGIES: Penicillin: Nausea, sick to stomach PAST MEDICAL HISTORY: Diabetes mellitus Hypertension Hyperlipidemia Nocturnal hypoxia Grade 1 diastolic heart failure Mitral valve problem Platypnea Frequent sinusitis infections with recent bronchitis and sinusitis Hypoxia with sitting or standing from a flat lying position Paroxysmal ventricular/supraventricular tachycardia Respiratory failure with severe hypoxia Intracardiac shunt Breast cancer status post lumpectomy and radiation in 2000 Gastroesophageal reflux disease Irritable bowel syndrome Vitamin D deficiency Glaucoma Section of pulmonary hypertension--Do not see this in medical records. PAST SURGICAL HISTORY: Left lumpectomy Tubal ligation Cholecystectomy Recent EGD and colonoscopy normal in 2014 3 total colonoscopies MEDICATIONS: Acetaminophen 500 mg as needed Aspirin 81 mg daily Metformin 500 mg daily Supplemental oxygen 2 L Pravastatin 20 mg daily Protonix 40 mg daily Vitamin D 2000 units daily SOCIAL HISTORY: Lives at home with her 47-year-old son. Denies ever smoking Denies alcohol use Denies illicit drug use Denies recent travel Denies sick contacts There are no pets in the home. Patient is retired. FAMILY HISTORY: Father: Diabetes, CHF Mother: Diabetes 2 maternal aunts: Diabetes 1 sister: Prone to sinus, throat, ear infections One brother: Healthy and alive Youngest son 38 years old: Heart murmur CODE STATUS: FULL CODE: wants CPR and intubation. Advanced directive:? Has Healthcare Proxy: Noah Steen and Mirza Steen who are patient's sons REVIEW OF SYSTEMS: Constitutional: Admits to fatigue and recent 25 lbs weight loss since April 08 and a 5 lbs weight loss in the last 4 days. Denies fevers, chills, night sweats. HEENT: Denies headache. Currently, denies dizziness, light-headedness. Eyes: denies blurry vision. Ears: denies hearing loss but admits to pressure in her ears when she eats. Denies sore throat, cough, difficulty swallowing. Admits to facial sinus pressure. Cardiovascular: Denies chest pain. Respiratory: Denies shortness of breath, difficulty breathing when lying flat. Gastrointestinal: Admits to some abdominal gas pain/pressure that goes all the way up to her "sinuses and ears" and fluttering in her abdomen. Admits to nausea , diarrhea. Denies vomiting, constipation, melena, hematochezia. : denies dysuria, hematuria Musculoskeletal: Admits to progressively worsening generalized weakness. Denies muscle / joint stiffness, pain, swelling. Neurological: Admitted to [facility] this morning. Denies dizziness, headache, numbness, tingling, focal weakness. Integumentary: Denies rashes or lesions. Endocrine: Denies polyuria, polydipsia, heat intolerance/cold intolerance. Admits to fatigue. PHYSICAL EXAMINATION: Initial ED Vitals: Temperature , blood pressure ) , pulse , respiratory rate , pulse ox: General: HEENT: Head: normocephalic, atraumatic. Tenderness to palpation of maxillary sinuses. Eyes: Sclera are nonicteric. Nose: No external lesions. Ears: Grossly normal hearing bilaterally. Lips intact. Neck: No cervical LAD bilaterally. No thyromegaly. Respiratory: clear to auscultation bilaterally. No wheezes, rales, rhonchi. Cardiovascular: regular rate and rhythm, with no murmurs, rubs or gallops. Chest: Symmetrical chest rise bilaterally. Abdomen: soft, obese abdomen, nondistended, no hepatosplenomegaly appreciated. + Tenderness to palpation in RUQ and LUQ and midepigastric area with rebound. Bowel sounds present. Extremities: Minimal edema in either lower extremity bilaterally. Neurological: No focal neurologic deficits appreciated bilaterally. Musculoskeletal: Normal ROM. Lymphatics: no palpable lymph nodes, swollen glands Integumentary: No rashes or lesions seen. Vascular: +2 dorsalis pedis and radial pulses palpable and symmetrical bilaterally LABORATORY DATA: See below MICROBOIOLOGY: See below ELECTROCARDIOGRAM: As stated above. RADIOLOGY: CXR as stated above. ASSESSMENT: 57-year-old male is presenting for hypokalemia, postprandial abdominal pain, diarrhea, and generalized weakness most likely secondary to acute issues. PLAN: #1. Hypokalemia: Will admit to telemetry unit. Check magnesium levels and repeat K level tonight. Will replete K+ with PO or IV KCl. #2. Postprandial abdominal pain: Unclear if this is immediate or after a certain time. Will include PUD on differential and reeassess hx. In the meantime , we will do CT scan of the abdomen/pelvis without contrast. Lipase level was normal. Patient has a cholecystectomy. #3. Diarrhea: suspect possible c. diff due to recent antibiotic uses with doxycycline, clindamycin, and azithromycin. Will do GI panel, stool lactoferrin/ polys, replete fluids/electrolytes. Will keep on NPO diet for now, give IVF, and see what CT scan shows. #4. Generalized Weakness: most likely secondary to all acute issues stated above. #5. Reported Weight Loss: most likely secondary to diarrhea and postprandial abdominal pain. Will continue to monitor. #6. Diabetes Mellitus: will stop metformin and consider placing on insulin- sliding scale. #7. Continue home medications for her other medical problems. #8. Get PT/OT on board. DVT prophylaxis: SCDs for now. GI prophylaxis: Protonix (home med). CODE STATUS: FULL CODE. Immunizations as per protocol. Spoke to Dr. Gates about this case who has informed Dr. Emily Aleman. Home Medications Scheduled Aspirin (Aspirin EC) 81 Mg Tabec 81 MG PO DAILY (Reported) Bimatoprost (Lumigan) 50 Drop/2.5 Ml Jaky 1 DROP OU QHS (Reported) Cholecalciferol (Vitamin D) 2,000 Unit Tab 2,000 UNIT PO DAILY (Reported) Furosemide (Furosemide) 40 Mg Tab 40 MG PO DAILY (Reported) Metformin Hydrochloride (Metformin HCl) 500 Mg Tab 500 MG PO DAILY (Reported) Metoprolol Tartrate (Metoprolol Tartrate) 100 Mg Tab 100 MG PO BID (Reported) Pantoprazole Sodium (Pantoprazole Sodium) 40 Mg Tab 40 MG PO DAILY (Reported) Pravastatin Sodium (Pravastatin Sodium) 20 Mg Tab 20 MG PO QHS (Reported) Scheduled PRN Acetaminophen (Acetaminophen) 500 Mg Tab 1,000 MG PO Q6H PRN PRN PAIN (Reported ) Allergies Coded Allergies: Penicillins (Verified Allergy, Unknown, 04/22/16) Vital Signs As above. Laboratory Data Labs 24H Laboratory Tests 2 05/03/16 14:13: Blood Urea Nitrogen 16, Creatinine 1.01, Sodium Level 141, Potassium Level 2.9*L , Chloride Level 98, Carbon Dioxide Level 30, Calcium Level 9.5, Aspartate Amino Transf (AST/SGOT) 34, Alanine Aminotransferase (ALT/SGPT) 55, Total Creatine Kinase 51, Alkaline Phosphatase 59, Total Bilirubin 0.6, Total Protein 8.4H, Albumin 4.4, Albumin/Globulin Ratio 1.10, Anion Gap 13, B-Type Natriuretic Peptide 55.6, White Blood Count 8.7, Red Blood Count 5.36, Hemoglobin 15.7, Hematocrit 45.2, Mean Corpuscular Volume 84.2, Mean Corpuscular Hemoglobin 29.2, Mean Corpuscular Hemoglobin Concent 34.6, Red Cell Distribution Width 13.4, Platelet Count 295, Neutrophils (%) (Auto) 60.3, Lymphocytes (%) (Auto) 31.3, Monocytes (%) (Auto) 5.3H, Eosinophils (%) (Auto) 0.9, Basophils (%) (Auto) 0.5, Neutrophils # (Auto) 5.3, Lymphocytes # (Auto) 2.7, Monocytes # (Auto) 0.5, Eosinophils # (Auto) 0.1, Basophils # (Auto) 0.0, Creatine Kinase MB 1.0, Creatine Kinase MB Relative Index 1.96, Glomerular Filtration Rate 58.2, Large Unclassified Cells # 0.1, Large Unclassified Cells % 1.6, Lipase 112, Magnesium Level 1.9, Troponin I < 0.02 05/03/16 17:44: Bedside Glucose (Misc Panel) 99 CBC/BMP Laboratory Tests 05/03/16 14:13 Calcium Level 9.5, Aspartate Amino Transf (AST/SGOT) 34, Alanine Aminotransferase (ALT/SGPT) 55, Total Creatine Kinase 51, Alkaline Phosphatase 59, Total Bilirubin 0.6, Total Protein 8.4 H, Albumin 4.4, Red Blood Count 5.36 , Mean Corpuscular Volume 84.2, Mean Corpuscular Hemoglobin 29.2, Mean Corpuscular Hemoglobin Concent 34.6, Red Cell Distribution Width 13.4, Neutrophils (%) (Auto) 60.3, Lymphocytes (%) (Auto) 31.3, Monocytes (%) (Auto) 5.3 H, Eosinophils (%) (Auto) 0.9, Basophils (%) (Auto) 0.5, Neutrophils # (Auto ) 5.3, Lymphocytes # (Auto) 2.7, Monocytes # (Auto) 0.5, Eosinophils # (Auto) 0.1, Basophils # (Auto) 0.0 05/03/16 18:56 Plan / VTE VTE Prophylaxis Ordered?: Yes (SCDs) GME ATTESTATION GME ATTESTATION My preceptor for this patient encounter was Dr. Emily Aleman, and was physically present in the building during the encounter and was fully available. As needed , all aspects of the patient interview, examination, medical decision making process, and medical care plan development were reviewed and approved by the preceptor. Preceptor is aware and concurs with the plan as stated in the body of this note and will attest to such by his/her cosignature. PAULETTE GORMAN OGME-1 May 03, 2016 19:34
[2016-05-03] MEDS: PRAVASTATIN 20 MG TAB PO SCH (20:12)
[2016-05-03 20:55] VITALS: BP 121/80
[2016-05-03] MEDS ORDERED: METOPROLOL TARTRATE 100 MG TAB PO SCH (21:00)
[2016-05-03] MEDS ORDERED: DEXTROSE 50% 50 ML SYRINGE IV PRN (21:15)
[2016-05-03] MEDS ORDERED: GLUCOSE 4 GM CHEW TABLET PO PRN (21:15)
[2016-05-03] MEDS ORDERED: GLUCAGON FOR INJ 1 MG VIAL (J1610) SC PRN (21:15)
[2016-05-04] VITALS (7 sets, daily range): BP systolic 112–139; BP diastolic 69–88
[2016-05-04] MEDS: HumaLOG INSULIN (NovoLOG) PER UNIT SC SCH ×5 (00:33→21:00)
[2016-05-04 06:27] LABS: BASO % 0.6 % (0.0-1.0); EOS # 0.2 K/mm3 (0.0-0.50); EOS % 2.7 % (0.0-3.0); LARGE UNSTAINED CELL # 0.1 K/mm3 (0.0-0.4); LARGE UNSTAINED CELL % 2.3 % (0.0-4.0); LYMPH # 2.2 K/mm3 (1.5-4.5); LYMPH % 40.5 % (24.0-44.0); MEAN CORPUSCULAR HEMOGLOBIN 28.7 pg (27.0-33.0); MEAN CORPUSCULAR HGB CONC 33.4 g/dl (32.0-36.5); MEAN CORPUSCULAR VOLUME 85.9 fl (80.0-96.0); MONO # 0.3 K/mm3 (0.0-0.8); NEUTROPHILS # 2.7 K/mm3 (1.8-7.7); PLATELET COUNT, AUTOMATED 249 k/mm3 (150-450); RED CELL DISTRIBUTION WIDTH 13.6 % (11.5-14.5); WHITE BLOOD COUNT 5.6 K/mm3 (4.0-10.0)
[2016-05-04 07:02] LABS: ANION GAP 12 MEQ/L (8-16); BLOOD UREA NITROGEN 13 MG/DL (7-18); CALCIUM LEVEL 8.4 MG/DL (8.8-10.2); CARBON DIOXIDE LEVEL 26 MEQ/L (21-32); CHLORIDE LEVEL 105 MEQ/L (98-107); CREATININE FOR GFR 0.76 MG/DL (0.55-1.02); GLOMERULAR FILTRATION RATE > 60.0 (>45); GLUCOSE, FASTING 109 MG/DL (80-110); POTASSIUM SERUM 3.2 MEQ/L (3.5-5.1); SODIUM LEVEL 143 MEQ/L (136-145)
[2016-05-04] MEDS ORDERED: METOCLOPRAMIDE INJ 10MG/2ML VIAL (J2765) IV PRN (07:15)
--- NOTE | 2016-05-04 07:46 | REP ---
REASON: Abdominal pain. COMPARISON: None. The lack of intravenous contrast decreases the sensitivity of the exam. The lung bases are clear. Diffuse low density is seen throughout the hepatic parenchyma consistent with diffuse fatty infiltration of the liver. Surgical clips are seen in the gallbladder fossa from previous cholecystectomy. The pancreas and spleen are unremarkable. The adrenal glands and left kidney are unremarkable. In the superior pole region of the right kidney, there is a partially exophytic 2.4 cm sized low density structure which has water Hounsfield unit readings. This is consistent with a simple cyst. Limited noncontrast enhanced examination shows no evidence of abnormal septations or mural nodules. Limited evaluation of the abdominal aorta and paraaortic regions show no gross abnormalities. There is no evidence of free air or free fluid in the abdomen or pelvis. The appendix is well visualized and is within normal limits. Limited evaluation of the intra-abdominal and intrapelvic bowel loops and their mesenteries show no gross abnormalities. There is no evidence of an intrapelvic or intra-abdominal mass or adenopathy. There are bilateral pelvic phleboliths. Bone window technique throughout the examination shows the osseous structures to be within normal limits for the patient's age. Spinal degenerative changes are noted. IMPRESSION: Limited noncontrast enhanced examination shows no evidence of acute intra-abdominal or intrapelvic disease. There is diffuse intra-abdominal or intrapelvic disease. There is diffuse fatty infiltration of the liver. Other findings as described above. Signed by Lalo Greco DO 05/04/2016 10:04 A
[2016-05-04] MEDS ORDERED: POTASSIUM CHLORIDE 10 MEQ SR TABLET PO SCH (09:00)
--- NOTE | 2016-05-04 09:04 | ECGEPIP ---
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
[2016-05-04] MEDS: VITAMIN D 1,000 INTERNATIONAL UNITS TABLET PO SCH (09:06)
[2016-05-04] MEDS: PANTOPRAZOLE 40MG TAB (PROTONIX) PO SCH (09:06)
[2016-05-04] MEDS: ASPIRIN 81 MG ENTERIC TAB PO SCH (09:06)
[2016-05-04] MEDS: POTASSIUM CHLORIDE 10 MEQ SR TABLET PO SCH ×2 (15:11→21:38)
--- NOTE | 2016-05-04 19:07 | IPNPDOC ---
Subjective Date Seen The patient was seen on 05/04/16. Subjective Chief Complaint/HPI The patient is a 65-year-old female admitted with a reason for visit of Abd Pain ; Hypokalemia. Events since last encounter no further diarrhea or dry heaves . It happened 2 days ago and she believes it was related to DOxycycline which she was taking in empty stomach which was prescribed from [facility] for a URI . She was very concerned as her heart rate overnight was in 40s and her blood pressure this morning was lowish. Within the last month her metoprolol has been increased from 50 bid to 100 bid. At present she does not offer any complaints, no chest pain or shortness of breath , no abdominal pain or nausea, no headache or upper airway congestion. Objective Physical Examination General Exam: Positive: Alert, No Acute Distress Eye Exam: Positive: Conjunctiva & lids normal, EOMI, PERRLA, Negative: Sclera icteric ENT Exam: Positive: Atraumatic, Mucous membr. moist/pink, Pharynx Normal Neck Exam: Positive: Supple, Negative: JVD, thyromegaly Chest Exam: Positive: Clear to auscultation, Normal air movement Heart Exam: Positive: Normal S1, Normal S2, Rate Normal, Regular Rhythm, Negative: Murmurs, Rubs Telemetry: Positive: Bradycardia, Sinus Abdomen Exam: Positive: Normal bowel sounds, Soft, Negative: Hepatospenomegaly, Tenderness Extremity Exam: Positive: Normal pulses, Negative: Clubbing, Cyanosis, Edema Skin Exam: Positive: Nl turgor and temperature, Negative: Breakdown, Rash Assessment /Plan Problems (1) Vomiting and diarrhea Status: Resolved Problem Text: most probably due to doxycycline has resolved after stopping the medication (2) Hypokalemia Status: Acute Problem Text: due to diarrhea and being on lasix started recently. being replaced. (3) Chronic respiratory failure with hypoxia Status: Chronic Problem Text: due to intracardiac shunt most probably ASD from bubble study done here . recently had SONIA in [facility] and also cardiac cath in the beginning of April when she was transferred from here. will request records. Pateint does have platypnea with desaturations of standing up and feeling better on lying down consistent with intracardiac shunt. (4) Atrial septal defect Status: Chronic Problem Text: recently diagnosed. As per pateint seen in [facility] no intervention required at present. (5) SVT (supraventricular tachycardia) Status: Chronic Problem Text: has episodes of paroxysmal SVTs was controlled with metoprolol 100 bid . however pulse rate down to 40s at night so reduced dose to 50 bid. (6) Hyperlipidemia Status: Chronic (7) Hypertension Status: Chronic (8) Diabetes Status: Chronic (9) Diastolic CHF Status: Chronic Problem Text: started on lasix recently with loss of about 25 lbs over the last month. (10) GERD (gastroesophageal reflux disease) Status: Chronic (11) H/O malignant neoplasm of breast Status: Chronic Problem Text: treated with lumpectomy and radiation in 2000 (12) Fatty liver Status: Chronic Problem Text: has chronic right upper quadrant pain possibly related to fatty liver (13) Pulmonary hypertension Status: Chronic Plan/VTE VTE Prophylaxis Ordered?: Yes VS, I&O, 24H, Fishbone Vital Signs/I&O Vital Signs Date Time Temp Pulse Resp B/P Pulse Ox O2 Delivery O2 Flow Rate FiO2 05/04/16 14:30 97.0 82 20 112/73 91 Nasal Cannula 3.0 I&O- Last 24 Hours up to 6 AM 05/04/16 06:00 Intake Total 1150 ml Output Total 250 ml Balance 900 ml Laboratory Data 24H LABS Laboratory Tests 2 05/04/16 00:25: Bedside Glucose (Misc Panel) 110 05/04/16 06:02: Anion Gap 12, White Blood Count 5.6, Red Blood Count 4.54, Hemoglobin 13.0#, Hematocrit 39.0, Mean Corpuscular Volume 85.9, Mean Corpuscular Hemoglobin 28.7 , Mean Corpuscular Hemoglobin Concent 33.4, Red Cell Distribution Width 13.6, Platelet Count 249, Neutrophils (%) (Auto) 48.0, Lymphocytes (%) (Auto) 40.5, Monocytes (%) (Auto) 6.0H, Eosinophils (%) (Auto) 2.7, Basophils (%) (Auto) 0.6 , Neutrophils # (Auto) 2.7, Lymphocytes # (Auto) 2.2, Monocytes # (Auto) 0.3, Eosinophils # (Auto) 0.2, Basophils # (Auto) 0.0, Blood Urea Nitrogen 13, Creatinine 0.76, Sodium Level 143, Potassium Level 3.2L, Chloride Level 105, Carbon Dioxide Level 26, Calcium Level 8.4L, Glomerular Filtration Rate > 60.0, Large Unclassified Cells # 0.1, Large Unclassified Cells % 2.3 05/04/16 11:52: Bedside Glucose (Misc Panel) 84 05/04/16 17:08: Bedside Glucose (Misc Panel) 100 CBC/BMP Laboratory Tests 05/03/16 18:56 05/04/16 06:02 Calcium Level 8.4 L, Red Blood Count 4.54, Mean Corpuscular Volume 85.9, Mean Corpuscular Hemoglobin 28.7, Mean Corpuscular Hemoglobin Concent 33.4, Red Cell Distribution Width 13.6, Neutrophils (%) (Auto) 48.0, Lymphocytes (%) (Auto) 40.5, Monocytes (%) (Auto) 6.0 H, Eosinophils (%) (Auto) 2.7, Basophils (%) ( Auto) 0.6, Neutrophils # (Auto) 2.7, Lymphocytes # (Auto) 2.2, Monocytes # (Auto ) 0.3, Eosinophils # (Auto) 0.2, Basophils # (Auto) 0.0 NEGRO CANO MD May 04, 2016 19:07
[2016-05-04] MEDS ORDERED: METOPROLOL TARTRATE 100 MG TAB PO SCH (21:00)
[2016-05-04] MEDS: PRAVASTATIN 20 MG TAB PO SCH (21:39)
[2016-05-04] MEDS: METOPROLOL TART 50 MG TAB PO SCH (21:39)
[2016-05-05] VITALS: BP 120/63
[2016-05-05 04:00] VITALS: BP 102/55
[2016-05-05 05:45] LABS: ANION GAP 8 MEQ/L (8-16); BLOOD UREA NITROGEN 12 MG/DL (7-18); CALCIUM LEVEL 8.6 MG/DL (8.8-10.2); CARBON DIOXIDE LEVEL 25 MEQ/L (21-32); CHLORIDE LEVEL 112 MEQ/L (98-107); CREATININE FOR GFR 0.73 MG/DL (0.55-1.02); GLOMERULAR FILTRATION RATE > 60.0 (>45); GLUCOSE, FASTING 120 MG/DL (80-110); POTASSIUM SERUM 4.3 MEQ/L (3.5-5.1); SODIUM LEVEL 145 MEQ/L (136-145)
[2016-05-05 05:49] LABS: BASO % 0.8 % (0.0-1.0); EOS # 0.2 K/mm3 (0.0-0.50); LARGE UNSTAINED CELL # 0.1 K/mm3 (0.0-0.4); LARGE UNSTAINED CELL % 2.2 % (0.0-4.0); MEAN CORPUSCULAR HEMOGLOBIN 29.3 pg (27.0-33.0); MEAN CORPUSCULAR HGB CONC 33.6 g/dl (32.0-36.5); MEAN CORPUSCULAR VOLUME 87.3 fl (80.0-96.0); MONO # 0.4 K/mm3 (0.0-0.8); MONO % 6.4 % (0.0-5.0); NEUTROPHILS # 2.9 K/mm3 (1.8-7.7); NEUTROPHILS % 51.7 % (36.0-66.0); PLATELET COUNT, AUTOMATED 224 k/mm3 (150-450); RED CELL DISTRIBUTION WIDTH 14.1 % (11.5-14.5); WHITE BLOOD COUNT 5.5 K/mm3 (4.0-10.0)
[2016-05-05 08:00] VITALS: BP 103/66
[2016-05-05] MEDS: HumaLOG INSULIN (NovoLOG) PER UNIT SC SCH ×4 (08:06→20:55)
[2016-05-05] MEDS: VITAMIN D 1,000 INTERNATIONAL UNITS TABLET PO SCH (08:07)
[2016-05-05] MEDS: PANTOPRAZOLE 40MG TAB (PROTONIX) PO SCH (08:07)
[2016-05-05] MEDS: ASPIRIN 81 MG ENTERIC TAB PO SCH (08:07)
[2016-05-05] MEDS: METOPROLOL TART 50 MG TAB PO SCH ×2 (08:07→21:00)
--- NOTE | 2016-05-05 10:14 | IPNPDOC ---
Subjective Date Seen The patient was seen on 05/05/16. Subjective Chief Complaint/HPI The patient is a 65-year-old female admitted with a reason for visit of Abd Pain ; Hypokalemia. Events since last encounter today not feeling well , feeling weak and tired, complains of constipation , also complains of presure around the sinuses and behind the eyes , alsocomplains of pain in the submandibular area. no fever or chills, no chest pain or shortness of breath, does have some intermittent RUQ pains sharp resolves by itself, no nausea or vomiting. Objective Physical Examination General Exam: Positive: Alert, No Acute Distress Eye Exam: Positive: Conjunctiva & lids normal, EOMI, PERRLA, Negative: Sclera icteric ENT Exam: Positive: Atraumatic, Mucous membr. moist/pink, Pharynx Normal Neck Exam: Positive: Supple, Negative: JVD, thyromegaly Chest Exam: Positive: Clear to auscultation, Normal air movement Heart Exam: Positive: Normal S1, Normal S2, Rate Normal, Regular Rhythm, Negative: Murmurs, Rubs Telemetry: Positive: Bradycardia, Sinus Abdomen Exam: Positive: Normal bowel sounds, Soft, Negative: Hepatospenomegaly, Tenderness Extremity Exam: Positive: Normal pulses, Negative: Clubbing, Cyanosis, Edema Skin Exam: Positive: Nl turgor and temperature, Negative: Breakdown, Rash Assessment /Plan Problems (1) Vomiting and diarrhea Status: Resolved Problem Text: most probably due to doxycycline has resolved after stopping the medication diarrhea could also be due to 3 doses of miralax that she took at home as she was constipated. (2) Hypokalemia Status: Resolved Problem Text: due to diarrhea and being on lasix started recently. replaced. (3) Chronic respiratory failure with hypoxia Status: Chronic Problem Text: due to intracardiac shunt most probably ASD from bubble study done here . recently had SONIA in [facility] and also cardiac cath in the beginning of April when she was transferred from here. will request records. Pateint does have platypnea with desaturations of standing up and feeling better on lying down consistent with intracardiac shunt. (4) Atrial septal defect Status: Chronic Problem Text: recently diagnosed. As per pateint seen in [facility] no intervention required at present. (5) SVT (supraventricular tachycardia) Status: Chronic Problem Text: has episodes of paroxysmal SVTs was controlled with metoprolol 100 bid . however pulse rate down to 40s at night so reduced dose to 50 bid. (6) Hyperlipidemia Status: Chronic (7) Hypertension Status: Chronic (8) Diabetes Status: Chronic (9) Diastolic CHF Status: Chronic Problem Text: started on lasix recently with loss of about 25 lbs over the last month. (10) GERD (gastroesophageal reflux disease) Status: Chronic (11) H/O malignant neoplasm of breast Status: Chronic Problem Text: treated with lumpectomy and radiation in 2000 (12) Fatty liver Status: Chronic Problem Text: has chronic right upper quadrant pain possibly related to fatty liver (13) Pulmonary hypertension Status: Chronic Plan/VTE VTE Prophylaxis Ordered?: Yes VS, I&O, 24H, Fishbone Vital Signs/I&O Vital Signs Date Time Temp Pulse Resp B/P Pulse Ox O2 Delivery O2 Flow Rate FiO2 05/05/16 08:07 65 103/66 05/05/16 08:00 Nasal Cannula 1.0 05/05/16 08:00 97.0 20 96 I&O- Last 24 Hours up to 6 AM 05/05/16 06:00 Intake Total 1085 ml Output Total 250 ml Balance 835 ml Laboratory Data 24H LABS Laboratory Tests 2 05/04/16 11:52: Bedside Glucose (Misc Panel) 84 05/04/16 17:08: Bedside Glucose (Misc Panel) 100 05/04/16 21:32: Bedside Glucose (Misc Panel) 113 05/05/16 05:20: Anion Gap 8, White Blood Count 5.5, Red Blood Count 4.35, Hemoglobin 12.8, Hematocrit 38.0, Mean Corpuscular Volume 87.3, Mean Corpuscular Hemoglobin 29.3 , Mean Corpuscular Hemoglobin Concent 33.6, Red Cell Distribution Width 14.1, Platelet Count 224, Neutrophils (%) (Auto) 51.7, Lymphocytes (%) (Auto) 35.0, Monocytes (%) (Auto) 6.4H, Eosinophils (%) (Auto) 4.0H, Basophils (%) (Auto) 0.8 , Neutrophils # (Auto) 2.9, Lymphocytes # (Auto) 2.0, Monocytes # (Auto) 0.4, Eosinophils # (Auto) 0.2, Basophils # (Auto) 0.0, Blood Urea Nitrogen 12, Creatinine 0.73, Sodium Level 145, Potassium Level 4.3#, Chloride Level 112H, Carbon Dioxide Level 25, Calcium Level 8.6L, Glomerular Filtration Rate > 60.0, Large Unclassified Cells # 0.1, Large Unclassified Cells % 2.2 CBC/BMP Laboratory Tests 05/04/16 19:21 05/05/16 05:20 Calcium Level 8.6 L, Red Blood Count 4.35, Mean Corpuscular Volume 87.3, Mean Corpuscular Hemoglobin 29.3, Mean Corpuscular Hemoglobin Concent 33.6, Red Cell Distribution Width 14.1, Neutrophils (%) (Auto) 51.7, Lymphocytes (%) (Auto) 35.0, Monocytes (%) (Auto) 6.4 H, Eosinophils (%) (Auto) 4.0 H, Basophils (%) ( Auto) 0.8, Neutrophils # (Auto) 2.9, Lymphocytes # (Auto) 2.0, Monocytes # (Auto ) 0.4, Eosinophils # (Auto) 0.2, Basophils # (Auto) 0.0 NEGRO CANO MD May 05, 2016 10:14
[2016-05-05] MEDS ORDERED: BISACODYL 10 MG SUPP PR PRN (10:15)
[2016-05-05 12:00] VITALS: BP 135/72
[2016-05-05] MEDS ORDERED: FUROSEMIDE 40 MG/4 ML VIAL (J1940) IV ONE (14:00)
[2016-05-05 20:00] VITALS: BP 118/74
[2016-05-05] MEDS ORDERED: SLF 3 ML SYR IV PRN (20:15)
[2016-05-05] MEDS ORDERED: CALCIUM CARBONATE 500 MG CHEW U/D PO PRN (20:30)
[2016-05-05] MEDS: PRAVASTATIN 20 MG TAB PO SCH (21:00)
[2016-05-05] MEDS: SLF 3 ML SYR IV SCH (21:00)
[2016-05-06 04:45] VITALS: BP 116/63
[2016-05-06 05:30] VITALS: BP 134/78
[2016-05-06 05:34] LABS: BASO % 0.5 % (0.0-1.0); EOS # 0.2 K/mm3 (0.0-0.50); EOS % 4.1 % (0.0-3.0); LARGE UNSTAINED CELL # 0.1 K/mm3 (0.0-0.4); LYMPH # 2.2 K/mm3 (1.5-4.5); LYMPH % 38.2 % (24.0-44.0); MEAN CORPUSCULAR HEMOGLOBIN 29.6 pg (27.0-33.0); MEAN CORPUSCULAR HGB CONC 34.3 g/dl (32.0-36.5); MEAN CORPUSCULAR VOLUME 86.3 fl (80.0-96.0); MONO # 0.3 K/mm3 (0.0-0.8); MONO % 5.3 % (0.0-5.0); NEUTROPHILS # 2.9 K/mm3 (1.8-7.7); NEUTROPHILS % 49.8 % (36.0-66.0); PLATELET COUNT, AUTOMATED 207 k/mm3 (150-450); RED CELL DISTRIBUTION WIDTH 13.9 % (11.5-14.5); WHITE BLOOD COUNT 5.9 K/mm3 (4.0-10.0)
[2016-05-06] MEDS: SLF 3 ML SYR IV SCH (05:37)
[2016-05-06] MEDS ORDERED: ONDANSETRON 4 MG ORAL DISINTEGRATING TAB (S0181) PO ONE (05:45)
[2016-05-06 05:49] LABS: ANION GAP 13 MEQ/L (8-16); BLOOD UREA NITROGEN 15 MG/DL (7-18); CALCIUM LEVEL 8.8 MG/DL (8.8-10.2); CARBON DIOXIDE LEVEL 24 MEQ/L (21-32); CHLORIDE LEVEL 107 MEQ/L (98-107); CREATININE FOR GFR 0.88 MG/DL (0.55-1.02); GLOMERULAR FILTRATION RATE > 60.0 (>45); GLUCOSE, FASTING 121 MG/DL (80-110); POTASSIUM SERUM 3.5 MEQ/L (3.5-5.1); SODIUM LEVEL 144 MEQ/L (136-145)
[2016-05-06 06:30] VITALS: BP 139/83
[2016-05-06] MEDS: HumaLOG INSULIN (NovoLOG) PER UNIT SC SCH ×2 (08:06→12:00)
[2016-05-06] MEDS: PANTOPRAZOLE 40MG TAB (PROTONIX) PO SCH (08:07)
[2016-05-06] MEDS: ASPIRIN 81 MG ENTERIC TAB PO SCH (08:07)
[2016-05-06] MEDS: VITAMIN D 1,000 INTERNATIONAL UNITS TABLET PO SCH (08:07)
[2016-05-06 08:08] VITALS: BP 122/68
[2016-05-06] MEDS: METOPROLOL TART 50 MG TAB PO SCH (08:08)
[2016-05-06] MEDS ORDERED: FUROSEMIDE 40 MG TAB PO SCH (09:00)
[2016-05-06] MEDS ORDERED: LOPR1TAB6 PO (10:51)
[2016-05-06] MEDS ORDERED: K-TA10TA2 PO (10:51)
--- NOTE | 2016-05-07 20:26 | DSES ---
DATE OF ADMISSION: 05/03/2016 DATE OF DISCHARGE: 05/06/2016 DISCHARGE DIAGNOSES: 1. Vomiting and diarrhea, medication related. 2. Hypokalemia, replaced. 3. Patent foramen ovale, small to moderate size with no left to right shunting. 4. Chronic respiratory failure with hypoxia. 5. Interatrial shunt. 6. Episodes of paroxysmal supraventricular tachycardia. 7. Hypertension. 8. Hyperlipidemia. 9. Diabetes. 10. Diastolic congestive heart failure. 11. Pulmonary hypertension. 12. Borderline coronary artery disease in the intramuscular left anterior descending (LAD) segment without significant plaque. 13. Low normal systolic function with an ejection fraction (EF) of 50% in cardiac catheter. 14. Mild to moderate aortic stenosis. 15. Symptomatic premature ventricular contractions (PVCs) which reproduced her symptoms of fluttering and chest tightness. 16. Fatty liver. 17. Gastrointestinal reflux disease (GERD). 18. History of malignant neoplasm of the breast, treated by lumpectomy and radiation in 2000. DISCHARGE MEDICATIONS: - metoprolol 75 mg osteoporosis twice a day - potassium chloride 10 mEq by mouth daily - acetaminophen 1000 mg by mouth every 6 hours as needed for pain - aspirin 81 mg by mouth daily - Lumigan eye drops one drop both eyes at bedtime - vitamin D 2000 units by mouth daily - Lasix 40 mg by mouth daily - metformin 500 mg by mouth daily - pantoprazole 40 mg by mouth daily - Prevacid 20 mg at bedtime HOSPITAL COURSE: This is a 65-year-old female who presented to the hospital, sent from private care physician's office for dehydration, vomiting, nausea, dry heaves, and diarrhea. The patient was recently discharged from [facility] five days prior to presentation here where she had undergone a cardiac catheterization and a transesophageal echocardiogram (SONIA). She also had an upper respiratory tract infection and was prescribed doxycycline and was discharged after taking the doxycycline at home for four days. She started having nausea and the dry heaves. She also took three doses of MiraLAX which caused her diarrhea. On presentation to the emergency room she was found to be hypokalemic. Potassium replacement was started. Her diarrhea, nausea and vomiting resolved and were felt to be related to the different medications she was taking. Records were received from [facility]. Cardiac catheterization showed no significant left to right shunt. There was adequate oxygen saturation without oxygen supplementation both in supine and sitting position. There was low normal systolic function with an ejection fraction (EF) of 50% and diffuse hypokinesia, borderline coronary artery disease in the intramuscular left anterior descending segment without significant plaques or a plaque by intravascular ultrasound. Mild pulmonary hypertension with a high filling pressure. Diastolic dysfunction and may have episodes of desaturation. Mild to moderate aortic stenosis with the mean gradient of 23 on pull back. The patient was found to be very symptomatic of her premature ventricular contractions (PVCs) which reproduced her symptoms of shortness of breath, fluttering in the epigastrium and chest tightness. SONIA results from [facility] shows that the patient has patent foramen ovale without any left to right shunt. There is a prominent intraatrial septal aneurysm. Injection of contrast documented an intraatrial shunt, which was . During the hospitalization, the patient was noted to be bradycardic during sleep with pulse dropping down to the mid 40s so her metoprolol dose was reduced from 100 twice a day to 75 twice a day. She also complained of some epigastric and right upper quadrant pain. CT scan of the abdomen and pelvis shows that she has a fatty liver, as well as she does have a history of gastrointestinal reflux disease. So, her abdominal pain was felt to be related to those. The patient required oxygen during the night. However at rest and when awake, and on ambulation did not require any oxygen. At present, the patient is functioning at her baseline. Symptoms have resolved. Vital signs are stable and the patient is going to be discharged home. PHYSICAL EXAMINATION: VITAL SIGNS: Temperature 98.7, pulse 71, respiratory rate 19, blood pressure 122/68, pulse oximetry 94% on room air. GENERAL: The patient is awake, alert and oriented times three, sitting up in bed in no acute distress. HEENT: Normocephalic atraumatic. Moist mucous membranes. Anicteric eyes. CHEST: Clear to auscultation. CARDIOVASCULAR: S1, S2 regular. No murmurs, rubs, gallops. ABDOMEN: Soft, nontender. Bowel sounds present. EXTREMITIES: No edema. LABORATORY DATA: WBC 5.9, hemoglobin 12.5, platelets 207. Sodium 144, potassium 3.5, chloride 107, bicarbonate 24, BUN 15, creatinine 0.88, glucose 121, calcium 8.8. DISPOSITION: The patient is discharged home in stable condition. DISCHARGE INSTRUCTIONS: The patient is to follow with primary care provider in one week. The patient is to followup with [facility], has an outpatient appointment. Consistent carbohydrate, 2 gram sodium diet.
== END 2016-05-06 12:19 | disposition home or self-care (01) | DRG 641 ==
LOC: M ED 13:09 → M ED INP 19:07 → M PCU 05-04 13:55 → M MSPAV 05-06 06:27
PROVIDERS: ADMIT Internal Medicine; ATTEND Internal Medicine Nephrology
DX: E87.6 Hypokalemia (principal); J96.11 Chronic respiratory failure with hypoxia; I50.32 Chronic diastolic (congestive) heart failure; I47.1 Supraventricular tachycardia; Q21.1 Atrial septal defect; I10 Essential (primary) hypertension; E78.5 Hyperlipidemia, unspecified; E11.9 Type 2 diabetes mellitus without complications; K21.9 Gastro-esophageal reflux disease without esophagitis; T36.4X5A Adverse effect of tetracyclines, initial encounter; Z85.3 Personal history of malignant neoplasm of breast; K76.0 Fatty (change of) liver, not elsewhere classified; I27.2 Other secondary pulmonary hypertension; I35.0 Nonrheumatic aortic (valve) stenosis; I49.3 Ventricular premature depolarization; Z79.82 Long term (current) use of aspirin; Z79.899 Other long term (current) drug therapy; Z92.3 Personal history of irradiation; Z79.84 Long term (current) use of oral hypoglycemic drugs; Z99.81 Dependence on supplemental oxygen; Z88.0 Allergy status to penicillin; Z90.49 Acquired absence of other specified parts of digestive tract; Z98.51 Tubal ligation status; Z95.9 Presence of cardiac and vascular implant and graft, unspecified; Z83.3 Family history of diabetes mellitus; Z82.49 Family history of ischemic heart disease and other diseases of the circulatory system

== ENCOUNTER → 2016-05-14 | Outpatient (REF) | payer MEDICARE, OTHER ==
[~2016-05-14] MED LIST changes: +BIMA01SOL OU; +FLUT1SPR2; +FURO40TA2 PO; +K-TA10TA2 PO; +LOPR1TAB6 PO; +METO100T PO; +NYST100024
[2016-05-14 18:11] LABS: ALBUMIN 4.3 GM/DL (3.2-5.2); ALBUMIN/GLOBULIN RATIO 1.19 (1.00-1.93); ALKALINE PHOSPHATASE 52 U/L (45-117); ALT/SGPT 62 U/L (12-78); ANION GAP 9 MEQ/L (8-16); AST/SGOT 36 U/L (15-37); BILIRUBIN,TOTAL 0.3 MG/DL (0.2-1.0); BLOOD UREA NITROGEN 12 MG/DL (7-18); CARBON DIOXIDE LEVEL 31 MEQ/L (21-32); CHLORIDE LEVEL 101 MEQ/L (98-107); CREATININE FOR GFR 0.83 MG/DL (0.55-1.02); GLOMERULAR FILTRATION RATE > 60.0 (>45); GLUCOSE, FASTING 105 MG/DL (80-110); POTASSIUM SERUM 3.6 MEQ/L (3.5-5.1); SODIUM LEVEL 141 MEQ/L (136-145); TOTAL PROTEIN 7.9 GM/DL (6.4-8.2)
== END ==
LOC: M SFHCCLAY 11:26
PROVIDERS: ATTEND Family Medicine
DX: I10 Essential (primary) hypertension (principal); E11.9 Type 2 diabetes mellitus without complications
CPT/HCPCS: 80053; 83036; G0463

== ENCOUNTER 2016-05-29 11:36 | Emergency (ER) | payer MEDICARE, OTHER ==
[~2016-05-29] VITALS: Ht 165.1 cm; Wt 89.4 kg
[~2016-05-29 11:36] MED LIST changes: -FLUT1SPR2; -NYST100024
[2016-05-29] MEDS ORDERED: NYST100024 (11:53)
[2016-05-29] MEDS ORDERED: FLUT1SPR2 (11:53)
[2016-05-29] MEDS ORDERED: ONDANSETRON 4MG/2ML VIAL (J2405) IV ONE (12:45)
[2016-05-29] MEDS: NS 1,000 ML IV SCH ×5 (12:46→16:33)
[2016-05-29 12:51] LABS: BASO % 0.8 % (0.0-1.0); EOS # 0.2 K/mm3 (0.0-0.50); EOS % 2.6 % (0.0-3.0); LARGE UNSTAINED CELL # 0.1 K/mm3 (0.0-0.4); LARGE UNSTAINED CELL % 1.7 % (0.0-4.0); LYMPH # 2.4 K/mm3 (1.5-4.5); LYMPH % 35.9 % (24.0-44.0); MEAN CORPUSCULAR HEMOGLOBIN 29.4 pg (27.0-33.0); MEAN CORPUSCULAR HGB CONC 33.1 g/dl (32.0-36.5); MEAN CORPUSCULAR VOLUME 88.7 fl (80.0-96.0); MONO # 0.3 K/mm3 (0.0-0.8); MONO % 5.2 % (0.0-5.0); NEUTROPHILS # 3.5 K/mm3 (1.8-7.7); NEUTROPHILS % 53.7 % (36.0-66.0); PLATELET COUNT, AUTOMATED 268 k/mm3 (150-450); RED CELL DISTRIBUTION WIDTH 13.6 % (11.5-14.5); WHITE BLOOD COUNT 6.5 K/mm3 (4.0-10.0)
[2016-05-29 13:01] LABS: ALBUMIN 4.4 GM/DL (3.2-5.2); ALKALINE PHOSPHATASE 54 U/L (45-117); ALT/SGPT 57 U/L (12-78); ANION GAP 8 MEQ/L (8-16); AST/SGOT 39 U/L (15-37); BILIRUBIN,DIRECT 0.1 MG/DL (0.0-0.2); BILIRUBIN,TOTAL 0.4 MG/DL (0.2-1.0); BLOOD UREA NITROGEN 13 MG/DL (7-18); CALCIUM LEVEL 9.6 MG/DL (8.8-10.2); CARBON DIOXIDE LEVEL 31 MEQ/L (21-32); CHLORIDE LEVEL 101 MEQ/L (98-107); CREATININE FOR GFR 0.77 MG/DL (0.55-1.02); GLOMERULAR FILTRATION RATE > 60.0 (>45); GLUCOSE, FASTING 105 MG/DL (80-110); POTASSIUM SERUM 3.4 MEQ/L (3.5-5.1); SODIUM LEVEL 140 MEQ/L (136-145); TOTAL PROTEIN 8.4 GM/DL (6.4-8.2)
--- NOTE | 2016-05-29 13:18 | REP ---
PA and lateral chest: Comparison is 05/03/2016. The lung barlow are clear. The cardiac size is normal The emile, mediastinum, and bony thorax are unremarkable. Impression: Negative PA and lateral chest. There is no interval change. Signed by El Kruse MD 05/29/2016 01:09 P
[2016-05-29] MEDS ORDERED: GASTROGRAFIN SOLUTION 30ML PO ONE (14:05)
[2016-05-29] MEDS ORDERED: GASTROGRAFIN SOLUTION 30ML (Q9963) As Ordered ONE (14:05)
[2016-05-29] MEDS ORDERED: GASTROGRAFIN SOLUTION 30ML (Q9963) PO ONE (14:35)
[2016-05-29] MEDS ORDERED: ISOVUE-370 76% 100ML VIAL (Q9967) As Ordered ONE (15:07)
--- NOTE | 2016-05-29 16:08 | REP ---
CT ABDOMEN AND PELVIS WITH CONTRAST: TECHNIQUE: Axial contrast enhanced images from the lung bases to the pubic symphysis using 100 mL Isovue 370 intravenous contrast material with multiplanar reformations. Visualized lung bases demonstrate bibasilar fibrotic change. The liver demonstrates diffuse fatty infiltration. The patient has had a prior cholecystectomy. No biliary dilatation is seen. The spleen, adrenals and pancreas are unremarkable. There is a cyst in the upper pole of the right kidney measuring approximately 3.3 cm in diameter. There is no hydronephrosis. There is no abdominal aortic aneurysm with mild scattered atherosclerotic calcifications. There is no adenopathy. There is no free air or free fluid. There is focal thickened appearance of the mid right colon. This could be due to spasm, but I cannot exclude focal colitis or neoplasm. The appendix is not inflamed. No pelvic mass is seen. The urinary bladder appears unremarkable. There is a small hiatal hernia. IMPRESSION: Focal thickening of mid right colon could be due to spasm, but I cannot exclude focal colitis or neoplasm. No adenopathy, free air or free fluid. Diffuse fatty infiltration of the liver. Status post cholecystectomy. Small hiatal hernia. Signed by El Malik MD 05/29/2016 05:42 P
[2016-05-29 18:41] VITALS: O2SAT 95
[2016-05-29 19:03] VITALS: BP 114/63
[2016-05-29] MEDS ORDERED: METF500T PO (19:30)
[2016-05-29] MEDS ORDERED: LOPR1TAB6 PO (19:30)
--- NOTE | 2016-05-29 21:46 | ECGEPIP ---
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
== END 2016-05-29 19:46 | disposition home or self-care (01) ==
LOC: M ED 13:19
DX: R00.1 Bradycardia, unspecified (principal); T44.7X5A Adverse effect of beta-adrenoreceptor antagonists, initial encounter; K58.9 Irritable bowel syndrome, unspecified; R10.11 Right upper quadrant pain; R94.31 Abnormal electrocardiogram [ECG] [EKG]; I44.0 Atrioventricular block, first degree; I10 Essential (primary) hypertension; E11.9 Type 2 diabetes mellitus without complications; I50.9 Heart failure, unspecified; Z88.0 Allergy status to penicillin; Z79.899 Other long term (current) drug therapy; Z79.82 Long term (current) use of aspirin; Z99.81 Dependence on supplemental oxygen
CPT/HCPCS: 71020; 74177; 80048; 80076; 82550; 82553; 83690; 83880; 84443; 84484; 85025; 93005; 93041; 94760; 96374; 99285; J2405; Q9963; Q9967

== ENCOUNTER → 2016-10-06 | Outpatient (CLI) | payer MEDICARE, OTHER ==
[~2016-10-06] MED LIST changes: +CO Q100C PO; -CO Q1CAP PO; +FLUT1SPR2; -METF500T PO; +METF500T13 PO; -METO100T PO; +METO100T5 PO; -NYST100024 TOP; +NYST1POW9; +NYST1POW9 TOP; +PLAV1TAB2 PO; -PLAV75TA38 PO
--- NOTE | 2016-10-12 10:20 | SLEEPCENT ---
DATE OF STUDY: 10/06/2016 Nocturnal polysomnography was performed for evaluation of sleep apnea syndrome symptoms in this patient with a history of excessive somnolence and nonrestorative sleep. 7 hours and 21 minutes of data were reviewed. There were 338 minutes of sleep identified. Sleep latency was prolonged at 78 minutes. Rapid eye movement (REM) latency was normal at 70 minutes from onset of sleep. Sleep architecture was fairly good. There were three REM periods. Minor fragmentation was seen. Overall sleep efficiency was good at 77.6%. The patient's EKG showed a sinus rhythm with PVCs. Average heart rate 68 beats per minute. EEG showed some coarsening in background. No focal events were seen. There were 19 respiratory events identified of 10 seconds in duration or greater for an apnea-hypopnea index of 3.4. The events that were identified were more frequent in the supine posture. Arousals from respiratory events heard only 0.9 times per hour despite significant snoring over the course of the test. There was limb activity appreciated and there were 3 trains of 30 events. Limb movement arousal index was borderline at 6.9. IMPRESSION: 1. Mild periodic limb movement disorder (G47.61). Limb movement arousal index 6.9. 2. Snoring. RECOMMENDATION: Interventions to reduce the frequency of arousal from limb activity may improve the quality of the patient's sleep. Position retraining for avoidance of the supine posture may be helpful to reduce the few respiratory related arousals seen.
== END ==
LOC: M SLEEP 20:00
PROVIDERS: ATTEND Internal Medicine Pulmonary Disease
DX: R06.83 Snoring (principal)

== ENCOUNTER → 2016-12-31 | Outpatient (REF) | payer MEDICARE, OTHER ==
[2016-12-31 12:32] LABS: ALBUMIN 3.8 GM/DL (3.2-5.2); ALBUMIN/GLOBULIN RATIO 0.97 (1.00-1.93); ALKALINE PHOSPHATASE 70 U/L (45-117); ALT/SGPT 30 U/L (12-78); ANION GAP 7 MEQ/L (8-16); AST/SGOT 15 U/L (7-37); BILIRUBIN,TOTAL 0.3 MG/DL (0.2-1.0); BLOOD UREA NITROGEN 15 MG/DL (7-18); CALCIUM LEVEL 9.2 MG/DL (8.8-10.2); CARBON DIOXIDE LEVEL 28 MEQ/L (21-32); CHLORIDE LEVEL 107 MEQ/L (98-107); CHOLESTEROL LEVEL 168 MG/DL (<200); CREATININE FOR GFR 0.73 MG/DL (0.55-1.02); GLOMERULAR FILTRATION RATE > 60.0 (>45); GLUCOSE, FASTING 79 MG/DL (80-110); POTASSIUM SERUM 4.1 MEQ/L (3.5-5.1); SODIUM LEVEL 142 MEQ/L (136-145); TOTAL PROTEIN 7.7 GM/DL (6.4-8.2); TRIGLYCERIDES LEVEL 162 MG/DL (<150)
== END ==
LOC: M SFHCCLAY 08:30
PROVIDERS: ATTEND Family Medicine
DX: E11.9 Type 2 diabetes mellitus without complications (principal)
CPT/HCPCS: 80053; 80061; 83036; G0463

== ENCOUNTER → 2017-05-29 | Outpatient (REF) | payer MEDICARE, OTHER ==
[2017-05-29 17:25] LABS: ESTIMATED AVERAGE GLUCOSE 143 MG/DL (60-110); HEMOGLOBIN A1c 6.6 %
[2017-05-29 17:35] LABS: ALBUMIN 3.9 GM/DL (3.2-5.2); ALBUMIN/GLOBULIN RATIO 1.03 (1.00-1.93); ALKALINE PHOSPHATASE 72 U/L (45-117); ALT/SGPT 27 U/L (12-78); ANION GAP 9 MEQ/L (8-16); AST/SGOT 16 U/L (7-37); BILIRUBIN,TOTAL 0.3 MG/DL (0.2-1.0); BLOOD UREA NITROGEN 21 MG/DL (7-18); CALCIUM LEVEL 9.1 MG/DL (8.8-10.2); CARBON DIOXIDE LEVEL 24 MEQ/L (21-32); CHLORIDE LEVEL 109 MEQ/L (98-107); CHOLESTEROL LEVEL 159 MG/DL (<200); CHOLESTEROL RISK RATIO 2.338 (<5); CREATININE FOR GFR 0.66 MG/DL (0.55-1.30); GLOMERULAR FILTRATION RATE > 60.0 (>45); GLUCOSE, FASTING 103 MG/DL (70-100); HDL CHOLESTEROL 68 MG/DL (>40); LDL CHOLESTEROL 67.4 MG/DL (<100); NON-HDL-C 91 MG/DL; POTASSIUM SERUM 4.4 MEQ/L (3.5-5.1); SODIUM LEVEL 142 MEQ/L (136-145); TOTAL PROTEIN 7.7 GM/DL (6.4-8.2); TRIGLYCERIDES LEVEL 118 MG/DL (<150)
== END ==
LOC: M SFHCCLAY 09:47
DX: E11.9 Type 2 diabetes mellitus without complications (principal); I10 Essential (primary) hypertension
CPT/HCPCS: 80053

== ENCOUNTER → 2017-07-15 | Outpatient (REF) | payer MEDICARE, OTHER ==
[2017-07-16 14:15] LABS: TISSUE TRANSGLUTAMINASE IgA <2 U/mL (0-3)
== END ==
LOC: M LABDRAWC 11:36
DX: K58.1 Irritable bowel syndrome with constipation (principal)
CPT/HCPCS: 82784

== ENCOUNTER → 2017-09-05 | Outpatient (REF) | payer MEDICARE, OTHER ==
[2017-09-05 11:56] LABS: ESTIMATED AVERAGE GLUCOSE 146 MG/DL (60-110); HEMOGLOBIN A1c 6.7 %
[2017-09-05 12:11] LABS: ANION GAP 9 MEQ/L (8-16); BLOOD UREA NITROGEN 17 MG/DL (7-18); CALCIUM LEVEL 8.5 MG/DL (8.8-10.2); CARBON DIOXIDE LEVEL 25 MEQ/L (21-32); CHLORIDE LEVEL 108 MEQ/L (98-107); CREATININE FOR GFR 0.68 MG/DL (0.55-1.30); GLOMERULAR FILTRATION RATE > 60.0 (>45); GLUCOSE, FASTING 83 MG/DL (70-100); POTASSIUM SERUM 4.3 MEQ/L (3.5-5.1); SODIUM LEVEL 142 MEQ/L (136-145)
== END ==
LOC: M SFHCCLAY 09:17
DX: E11.9 Type 2 diabetes mellitus without complications (principal)
CPT/HCPCS: 83036

== ENCOUNTER 2017-09-20 10:47 | Inpatient (IN) | payer MEDICARE, OTHER ==
[2017-09-20] MEDS: ONDANSETRON 4MG/2ML VIAL (J2405) IV (11:40)
[2017-09-20] MEDS: NS 1,000 ML IV (11:41)
[2017-09-20 11:42] LABS: BASO # 0.1 10^3/uL (0.0-0.2); BASO % 0.8 % (0.0-1.0); EOS # 0.1 10^3/uL (0.0-0.50); EOS % 1.3 % (0.0-3.0); HEMATOCRIT 44.7 % (36.0-47.0); HEMOGLOBIN 14.9 g/dl (12.0-15.5); IMMATURE GRANULOCYTE % 0.2 % (0-3.0); LYMPH # 3.3 10^3/uL (1.5-4.5); LYMPH % 37.8 % (24.0-44.0); MEAN CORPUSCULAR HEMOGLOBIN 28.3 pg (27.0-33.0); MEAN CORPUSCULAR HGB CONC 33.3 g/dl (32.0-36.5); MEAN CORPUSCULAR VOLUME 84.8 fl (80.0-96.0); MONO # 0.7 10^3/uL (0.0-0.8); NEUTROPHILS # 4.6 10^3/uL (1.8-7.7); NEUTROPHILS % 51.9 % (36.0-66.0); PLATELET COUNT, AUTOMATED 267 10^3/uL (150-450); RED BLOOD COUNT 5.27 10^6/uL (4.00-5.40); RED CELL DISTRIBUTION WIDTH 13.5 % (11.5-14.5); WHITE BLOOD COUNT 8.8 10^3/uL (4.0-10.0)
[2017-09-20] MEDS ORDERED: AMIODARONE HCL 150 MG/100 ML PREMIXED BAG (NEXTERONE) As Ordered (11:46)
[2017-09-20] MEDS: AMIODARONE HCL 150 MG in APPROPRIATE DILUENT 1 EA IV (11:50)
[2017-09-20 12:07] LABS: ALBUMIN 3.7 GM/DL (3.2-5.2); ALT/SGPT 32 U/L (12-78); ANION GAP 10 MEQ/L (8-16); AST/SGOT 21 U/L (7-37); BILIRUBIN,DIRECT < 0.1 MG/DL (0.0-0.2); BLOOD UREA NITROGEN 12 MG/DL (7-18); CALCIUM LEVEL 8.8 MG/DL (8.8-10.2); CARBON DIOXIDE LEVEL 23 MEQ/L (21-32); CHLORIDE LEVEL 108 MEQ/L (98-107); CPK CREATINE PHOSPHOKINASE 76 U/L (26-192); CREATININE FOR GFR 0.82 MG/DL (0.55-1.30); GLOMERULAR FILTRATION RATE > 60.0 (>45); GLUCOSE, FASTING 112 MG/DL (70-100); LIPASE 105 U/L (73-393); MAGNESIUM LEVEL 2.2 MG/DL (1.8-2.4); SODIUM LEVEL 141 MEQ/L (136-145); TROPONIN I < 0.02 NG/ML (< 0.10)
[2017-09-20 12:13] LABS: ALBUMIN/GLOBULIN RATIO 0.86 (1.00-1.93); ALKALINE PHOSPHATASE 81 U/L (45-117); BILIRUBIN,TOTAL 0.2 MG/DL (0.2-1.0); CK-MB VALUE MASS 1.5 NG/ML (<3.6); FREE T4 0.83 NG/DL (0.76-1.46); MB/CK RELATIVE INDEX 1.97 (< OR =4); NT-PRO BNP 491 PG/ML (<125)
[2017-09-20] MEDS ORDERED: ACETAMINOPHEN 500 MG TAB PO (14:30)
[2017-09-20] MEDS ORDERED: ISOVUE-370 76% 100ML VIAL (Q9967) As Ordered (15:18)
[2017-09-20] MEDS: GASTROGRAFIN SOLUTION 30ML PO ×2 (15:30→16:00)
[2017-09-20 16:57] LABS: CK-MB VALUE MASS 1.6 NG/ML (<3.6); CPK CREATINE PHOSPHOKINASE 70 U/L (26-192); MB/CK RELATIVE INDEX 2.28 (< OR =4); TROPONIN I 0.04 NG/ML (< 0.10)
[2017-09-20] MEDS: PANTOPRAZOLE 40MG TAB (PROTONIX) PO (17:28)
[2017-09-20] MEDS: SENOKOT S TAB PO (21:00)
[2017-09-20] MEDS: PRAVASTATIN 20 MG TAB PO (21:00)
[2017-09-20] MEDS ORDERED: LUMIGAN OU (21:00)
[2017-09-20 21:04] LABS: BEDSIDE GLUCOSE 104 MG/DL (80-115)
[2017-09-20] MEDS: METOPROLOL TART 50 MG TAB PO (21:04)
[2017-09-20] MEDS: ENOXAPARIN 40 MG/0.4 ML SYRINGE (J1650) SC (21:05)
[2017-09-20] MEDS: MIRALAX *UNIT DOSE* 17GM PACKET PO (21:17)
[2017-09-20 21:53] LABS: CONTROL LINE MONO INT CTR LINE PRESENT; MONO SCRN NEGATIVE (NEGATIVE)
[2017-09-20 22:26] LABS: CPK CREATINE PHOSPHOKINASE 76 U/L (26-192); TROPONIN I 0.02 NG/ML (< 0.10)
[2017-09-20 22:27] LABS: CK-MB VALUE MASS 1.8 NG/ML (<3.6); MB/CK RELATIVE INDEX 2.36 (< OR =4)
[2017-09-21] MEDS: MAALOX 30 ML SUSP *UDC PO (04:31)
[2017-09-21 04:40] LABS: BEDSIDE GLUCOSE 113 MG/DL (80-115)
[2017-09-21 06:52] LABS: HEMOGLOBIN 13.6 g/dl (12.0-15.5); MEAN CORPUSCULAR HEMOGLOBIN 28.3 pg (27.0-33.0); MEAN CORPUSCULAR HGB CONC 33.2 g/dl (32.0-36.5); MEAN CORPUSCULAR VOLUME 85.2 fl (80.0-96.0); PLATELET COUNT, AUTOMATED 225 10^3/uL (150-450); RED BLOOD COUNT 4.81 10^6/uL (4.00-5.40); RED CELL DISTRIBUTION WIDTH 13.7 % (11.5-14.5); WHITE BLOOD COUNT 6.2 10^3/uL (4.0-10.0)
[2017-09-21 07:02] LABS: ANION GAP 8 MEQ/L (8-16); BLOOD UREA NITROGEN 11 MG/DL (7-18); CALCIUM LEVEL 8.9 MG/DL (8.8-10.2); CARBON DIOXIDE LEVEL 29 MEQ/L (21-32); CHLORIDE LEVEL 105 MEQ/L (98-107); CREATININE FOR GFR 0.86 MG/DL (0.55-1.30); GLOMERULAR FILTRATION RATE > 60.0 (>45); GLUCOSE, FASTING 116 MG/DL (70-100); MAGNESIUM LEVEL 2.1 MG/DL (1.8-2.4); POTASSIUM SERUM 3.9 MEQ/L (3.5-5.1); SODIUM LEVEL 142 MEQ/L (136-145)
[2017-09-21] MEDS: MIRALAX *UNIT DOSE* 17GM PACKET PO (09:17)
[2017-09-21] MEDS: PANTOPRAZOLE 40MG TAB (PROTONIX) PO ×2 (09:17→21:22)
[2017-09-21] MEDS: METOPROLOL TART 50 MG TAB PO ×2 (09:17→21:23)
[2017-09-21] MEDS: SENOKOT S TAB PO ×2 (09:17→21:22)
[2017-09-21] MEDS: VITAMIN D 1,000 INTERNATIONAL UNITS TABLET PO (09:17)
[2017-09-21] MEDS: amLODIPine 5 MG TAB PO (09:18)
[2017-09-21] MEDS: ASPIRIN 81 MG ENTERIC TAB PO (09:18)
[2017-09-21] MEDS: MAGNESIUM CITRATE 300 ML BTL PO (09:52)
[2017-09-21] MEDS: SUCRALFATE 1 GM TAB PO ×4 (09:52→21:22)
[2017-09-21] MEDS: CALCIUM CARBONATE 500 MG CHEW U/D PO (11:02)
[2017-09-21 20:07] LABS: BEDSIDE GLUCOSE 99 MG/DL (80-115)
[2017-09-21] MEDS: PRAVASTATIN 20 MG TAB PO (21:23)
[2017-09-21] MEDS: ENOXAPARIN 40 MG/0.4 ML SYRINGE (J1650) SC (21:23)
[2017-09-22 03:33] LABS: BEDSIDE GLUCOSE 119 MG/DL (80-115)
[2017-09-22 04:03] LABS: CONTROL LINE HPYORI INT CTR LINE PRESENT; H PYLORI QUALITATIVE IgG NEGATIVE (NEGATIVE)
[2017-09-22] MEDS: MAALOX 30 ML SUSP *UDC PO (04:03)
[2017-09-22] MEDS: ONDANSETRON 4MG/2ML VIAL (J2405) IV (05:56)
[2017-09-22 06:11] LABS: HEMATOCRIT 42.8 % (36.0-47.0); HEMOGLOBIN 14.5 g/dl (12.0-15.5); MEAN CORPUSCULAR HEMOGLOBIN 28.3 pg (27.0-33.0); MEAN CORPUSCULAR HGB CONC 33.9 g/dl (32.0-36.5); MEAN CORPUSCULAR VOLUME 83.6 fl (80.0-96.0); PLATELET COUNT, AUTOMATED 234 10^3/uL (150-450); RED BLOOD COUNT 5.12 10^6/uL (4.00-5.40); RED CELL DISTRIBUTION WIDTH 13.3 % (11.5-14.5); WHITE BLOOD COUNT 6.6 10^3/uL (4.0-10.0)
[2017-09-22 06:22] LABS: ANION GAP 10 MEQ/L (8-16); BLOOD UREA NITROGEN 10 MG/DL (7-18); CALCIUM LEVEL 9.1 MG/DL (8.8-10.2); CARBON DIOXIDE LEVEL 26 MEQ/L (21-32); CHLORIDE LEVEL 106 MEQ/L (98-107); CREATININE FOR GFR 0.88 MG/DL (0.55-1.30); GLOMERULAR FILTRATION RATE > 60.0 (>45); GLUCOSE, FASTING 116 MG/DL (70-100); MAGNESIUM LEVEL 2.4 MG/DL (1.8-2.4); POTASSIUM SERUM 3.8 MEQ/L (3.5-5.1); SODIUM LEVEL 142 MEQ/L (136-145)
[2017-09-22 07:11] LABS: C REACTIVE PROTEIN QUANTITATIV < 0.30 MG/DL (0.00-0.30)
[2017-09-22 08:03] LABS: ERYTHROCYTE SEDIMENTATION RATE 14 mm/hr (0-30)
[2017-09-22] MEDS: PANTOPRAZOLE 40MG TAB (PROTONIX) PO ×2 (08:46→21:01)
[2017-09-22] MEDS: SENOKOT S TAB PO ×2 (08:46→21:01)
[2017-09-22] MEDS: SUCRALFATE 1 GM TAB PO ×4 (08:46→21:01)
[2017-09-22] MEDS: MIRALAX *UNIT DOSE* 17GM PACKET PO (08:46)
[2017-09-22] MEDS: VITAMIN D 1,000 INTERNATIONAL UNITS TABLET PO (08:46)
[2017-09-22] MEDS: ASPIRIN 81 MG ENTERIC TAB PO (08:46)
[2017-09-22] MEDS: amLODIPine 5 MG TAB PO (08:49)
[2017-09-22] MEDS: METOPROLOL TART 50 MG TAB PO ×2 (08:50→21:02)
[2017-09-22] MEDS ORDERED: E-Z-GAS II EFFERVESCENT PACKET (SODIUM BICARB./CITRIC ACID/SIMETHICONE) As Ordered (09:24)
[2017-09-22] MEDS ORDERED: E-Z-PAQUE 96% w/w SUSP 176GM BTL As Ordered (09:24)
[2017-09-22] MEDS ORDERED: E-Z-HD 98% w/w 340GM SUSP BTL As Ordered (09:24)
[2017-09-22 11:54] LABS: BEDSIDE GLUCOSE 154 MG/DL (80-115)
[2017-09-22 16:52] LABS: BEDSIDE GLUCOSE 102 MG/DL (80-115)
[2017-09-22 19:58] LABS: BEDSIDE GLUCOSE 128 MG/DL (80-115)
[2017-09-22] MEDS: PRAVASTATIN 20 MG TAB PO (21:01)
[2017-09-22] MEDS: LATANOPROST 0.005% OPHTH SOLN 2.5 ML OU (21:01)
[2017-09-22] MEDS: ENOXAPARIN 40 MG/0.4 ML SYRINGE (J1650) SC (21:01)
[2017-09-23 06:24] LABS: HEMATOCRIT 39.1 % (36.0-47.0); HEMOGLOBIN 13.2 g/dl (12.0-15.5); MEAN CORPUSCULAR HEMOGLOBIN 28.3 pg (27.0-33.0); MEAN CORPUSCULAR HGB CONC 33.8 g/dl (32.0-36.5); MEAN CORPUSCULAR VOLUME 83.9 fl (80.0-96.0); PLATELET COUNT, AUTOMATED 211 10^3/uL (150-450); RED BLOOD COUNT 4.66 10^6/uL (4.00-5.40); RED CELL DISTRIBUTION WIDTH 13.5 % (11.5-14.5); WHITE BLOOD COUNT 5.8 10^3/uL (4.0-10.0)
[2017-09-23 06:47] LABS: ANION GAP 10 MEQ/L (8-16); BLOOD UREA NITROGEN 10 MG/DL (7-18); CALCIUM LEVEL 8.8 MG/DL (8.8-10.2); CARBON DIOXIDE LEVEL 27 MEQ/L (21-32); CHLORIDE LEVEL 106 MEQ/L (98-107); CREATININE FOR GFR 0.84 MG/DL (0.55-1.30); GLOMERULAR FILTRATION RATE > 60.0 (>45); GLUCOSE, FASTING 120 MG/DL (70-100); MAGNESIUM LEVEL 2.4 MG/DL (1.8-2.4); POTASSIUM SERUM 3.7 MEQ/L (3.5-5.1); SODIUM LEVEL 143 MEQ/L (136-145)
[2017-09-23] MEDS: VITAMIN D 1,000 INTERNATIONAL UNITS TABLET PO (09:03)
[2017-09-23] MEDS: PANTOPRAZOLE 40MG TAB (PROTONIX) PO ×2 (09:03→21:19)
[2017-09-23] MEDS: SUCRALFATE 1 GM TAB PO ×4 (09:03→21:19)
[2017-09-23] MEDS: amLODIPine 5 MG TAB PO (09:05)
[2017-09-23] MEDS: ASPIRIN 81 MG ENTERIC TAB PO (09:05)
[2017-09-23] MEDS: SENOKOT S TAB PO ×2 (09:06→21:19)
[2017-09-23] MEDS: MIRALAX *UNIT DOSE* 17GM PACKET PO (09:06)
[2017-09-23] MEDS: METOPROLOL TART 50 MG TAB PO ×2 (09:06→21:20)
[2017-09-23 11:23] LABS: BEDSIDE GLUCOSE 87 MG/DL (80-115)
[2017-09-23 16:17] LABS: BEDSIDE GLUCOSE 100 MG/DL (80-115)
[2017-09-23] MEDS ORDERED: GLUCAGON FOR INJ 1 MG VIAL (J1610) SC (20:00)
[2017-09-23] MEDS ORDERED: GLUCOSE 4 GM CHEW TABLET PO (20:00)
[2017-09-23] MEDS ORDERED: DEXTROSE 50% 50 ML SYRINGE IV (20:00)
[2017-09-23] MEDS: LR 1,000 ML IV (21:19)
[2017-09-23] MEDS: PRAVASTATIN 20 MG TAB PO (21:19)
[2017-09-23] MEDS: LATANOPROST 0.005% OPHTH SOLN 2.5 ML OU (21:20)
[2017-09-23] MEDS: ENOXAPARIN 40 MG/0.4 ML SYRINGE (J1650) SC (21:20)
[2017-09-24 00:14] LABS: H PYLORI SERUM QUANT IGM <9.0 units (0.0-8.9)
[2017-09-24 04:48] LABS: BEDSIDE GLUCOSE 117 MG/DL (80-115)
[2017-09-24 06:22] LABS: HEMATOCRIT 38.6 % (36.0-47.0); HEMOGLOBIN 12.8 g/dl (12.0-15.5); MEAN CORPUSCULAR HEMOGLOBIN 28.1 pg (27.0-33.0); MEAN CORPUSCULAR HGB CONC 33.2 g/dl (32.0-36.5); MEAN CORPUSCULAR VOLUME 84.6 fl (80.0-96.0); PLATELET COUNT, AUTOMATED 212 10^3/uL (150-450); RED BLOOD COUNT 4.56 10^6/uL (4.00-5.40); RED CELL DISTRIBUTION WIDTH 13.3 % (11.5-14.5); WHITE BLOOD COUNT 7.2 10^3/uL (4.0-10.0)
[2017-09-24 06:35] LABS: ANION GAP 10 MEQ/L (8-16); BLOOD UREA NITROGEN 12 MG/DL (7-18); CALCIUM LEVEL 8.7 MG/DL (8.8-10.2); CARBON DIOXIDE LEVEL 27 MEQ/L (21-32); CHLORIDE LEVEL 107 MEQ/L (98-107); CREATININE FOR GFR 0.81 MG/DL (0.55-1.30); GLOMERULAR FILTRATION RATE > 60.0 (>45); GLUCOSE, FASTING 111 MG/DL (70-100); MAGNESIUM LEVEL 2.1 MG/DL (1.8-2.4); POTASSIUM SERUM 3.7 MEQ/L (3.5-5.1); SODIUM LEVEL 144 MEQ/L (136-145)
[2017-09-24] MEDS: METOPROLOL TART 50 MG TAB PO ×2 (08:56→21:28)
[2017-09-24] MEDS: SENOKOT S TAB PO ×2 (08:56→21:28)
[2017-09-24] MEDS: PANTOPRAZOLE 40MG TAB (PROTONIX) PO ×2 (08:56→21:28)
[2017-09-24] MEDS: ASPIRIN 81 MG ENTERIC TAB PO (08:56)
[2017-09-24] MEDS: SUCRALFATE 1 GM TAB PO ×4 (08:57→21:28)
[2017-09-24] MEDS: MIRALAX *UNIT DOSE* 17GM PACKET PO (08:57)
[2017-09-24] MEDS: VITAMIN D 1,000 INTERNATIONAL UNITS TABLET PO (08:57)
[2017-09-24] MEDS: amLODIPine 5 MG TAB PO (08:57)
[2017-09-24] MEDS ORDERED: PROPOFOL 200 MG/20 ML VIAL As Ordered (09:35)
[2017-09-24] MEDS ORDERED: LIDOCAINE 2% INJ 100 MG/5 ML SDV (FOR ANES.) As Ordered (09:35)
[2017-09-24] MEDS: LR 1,000 ML IV (09:59)
[2017-09-24 11:42] LABS: BEDSIDE GLUCOSE 115 MG/DL (80-115)
[2017-09-24 17:09] LABS: BEDSIDE GLUCOSE 135 MG/DL (80-115)
[2017-09-24 20:49] LABS: BEDSIDE GLUCOSE 125 MG/DL (80-115)
[2017-09-24] MEDS: PRAVASTATIN 20 MG TAB PO (21:28)
[2017-09-24] MEDS: LATANOPROST 0.005% OPHTH SOLN 2.5 ML OU (21:28)
[2017-09-24] MEDS: ENOXAPARIN 40 MG/0.4 ML SYRINGE (J1650) SC (21:28)
[2017-09-24] MEDS: DICYCLOMINE 10 MG CAP PO (21:28)
[2017-09-25 06:24] LABS: HEMATOCRIT 39.6 % (36.0-47.0); HEMOGLOBIN 13.4 g/dl (12.0-15.5); MEAN CORPUSCULAR HGB CONC 33.8 g/dl (32.0-36.5); MEAN CORPUSCULAR VOLUME 82.8 fl (80.0-96.0); PLATELET COUNT, AUTOMATED 216 10^3/uL (150-450); RED BLOOD COUNT 4.78 10^6/uL (4.00-5.40); RED CELL DISTRIBUTION WIDTH 13.4 % (11.5-14.5); WHITE BLOOD COUNT 6.7 10^3/uL (4.0-10.0)
[2017-09-25 06:36] LABS: ANION GAP 11 MEQ/L (8-16); BLOOD UREA NITROGEN 11 MG/DL (7-18); CALCIUM LEVEL 8.9 MG/DL (8.8-10.2); CARBON DIOXIDE LEVEL 25 MEQ/L (21-32); CHLORIDE LEVEL 108 MEQ/L (98-107); CREATININE FOR GFR 0.83 MG/DL (0.55-1.30); GLOMERULAR FILTRATION RATE > 60.0 (>45); GLUCOSE, FASTING 114 MG/DL (70-100); MAGNESIUM LEVEL 2.2 MG/DL (1.8-2.4); POTASSIUM SERUM 3.7 MEQ/L (3.5-5.1); SODIUM LEVEL 144 MEQ/L (136-145)
[2017-09-25] MEDS: SENOKOT S TAB PO (09:05)
[2017-09-25] MEDS: METOPROLOL TART 50 MG TAB PO (09:05)
[2017-09-25] MEDS: VITAMIN D 1,000 INTERNATIONAL UNITS TABLET PO (09:05)
[2017-09-25] MEDS: ASPIRIN 81 MG ENTERIC TAB PO (09:05)
[2017-09-25] MEDS: DICYCLOMINE 10 MG CAP PO (09:05)
[2017-09-25] MEDS: PANTOPRAZOLE 40MG TAB (PROTONIX) PO (09:05)
[2017-09-25] MEDS: SUCRALFATE 1 GM TAB PO (09:05)
[2017-09-25] MEDS: MIRALAX *UNIT DOSE* 17GM PACKET PO (09:06)
[2017-09-25] MEDS: amLODIPine 5 MG TAB PO (09:06)
[2017-09-25 14:14] LABS: Chitobioside Carbohydrat (ACCA 30 units (0-90); Laminaribioside Carbohyd (ALCA 12 units (0-60); Mannobioside Carbohydrat (AMCA 35 units (0-100); Saccharomyces cerevisiae IgG A 12 units (0-50)
== END 2017-09-25 09:43 | disposition home or self-care (01) | DRG 309 ==
LOC: M MSPAV 09-21 16:09 → M ED 10:47 → M ED INP 14:53
PROC: 0DB78ZX Excision of Stomach, Pylorus, Via Natural or Artificial Opening Endoscopic, Diagnostic (ICD-10-PCS; principal; 2017-09-24 13:00)
DX: I47.1 Supraventricular tachycardia (principal); I50.32 Chronic diastolic (congestive) heart failure; Q21.1 Atrial septal defect; E11.9 Type 2 diabetes mellitus without complications; I11.0 Hypertensive heart disease with heart failure; E78.5 Hyperlipidemia, unspecified; K58.1 Irritable bowel syndrome with constipation; K52.9 Noninfective gastroenteritis and colitis, unspecified; K21.9 Gastro-esophageal reflux disease without esophagitis; K29.50 Unspecified chronic gastritis without bleeding; I34.1 Nonrheumatic mitral (valve) prolapse; H40.9 Unspecified glaucoma; K31.7 Polyp of stomach and duodenum; K44.9 Diaphragmatic hernia without obstruction or gangrene; Z85.3 Personal history of malignant neoplasm of breast; Z92.3 Personal history of irradiation; Z79.82 Long term (current) use of aspirin; Z79.899 Other long term (current) drug therapy; Z88.0 Allergy status to penicillin; Z88.1 Allergy status to other antibiotic agents

== ENCOUNTER → 2018-01-12 | Outpatient (REF) | payer MEDICARE, OTHER ==
[2018-01-12 12:14] LABS: ESTIMATED AVERAGE GLUCOSE 137 MG/DL (60-110); HEMOGLOBIN A1c 6.4 %
[2018-01-12 12:32] LABS: ALBUMIN/GLOBULIN RATIO 1.21 (1.00-1.93); ALKALINE PHOSPHATASE 69 U/L (45-117); ALT/SGPT 29 U/L (12-78); ANION GAP 6 MEQ/L (8-16); AST/SGOT 17 U/L (7-37); BILIRUBIN,TOTAL 0.3 MG/DL (0.2-1.0); BLOOD UREA NITROGEN 14 MG/DL (7-18); CALCIUM LEVEL 9.1 MG/DL (8.8-10.2); CARBON DIOXIDE LEVEL 29 MEQ/L (21-32); CHLORIDE LEVEL 106 MEQ/L (98-107); CREATININE FOR GFR 0.85 MG/DL (0.55-1.30); GLOMERULAR FILTRATION RATE > 60.0 (>45); GLUCOSE, FASTING 71 MG/DL (70-100); POTASSIUM SERUM 4.3 MEQ/L (3.5-5.1); SODIUM LEVEL 141 MEQ/L (136-145); TOTAL PROTEIN 7.3 GM/DL (6.4-8.2)
== END ==
LOC: M SFHCCLAY 08:35
DX: E11.9 Type 2 diabetes mellitus without complications (principal); E03.8 Other specified hypothyroidism
CPT/HCPCS: 84443

== ENCOUNTER → 2018-04-30 | Outpatient (REF) | payer MEDICARE, OTHER ==
[~2018-04-30] MED LIST changes: +ACET500T15 PO; -ACET50TAOT PO; +AMLO5TAB6 PO; +ASPI1TAB PO; +DICY1CAP8 PO; +ESOM1CAP5 PO; -LISI2.5T3 PO; +LISI2.5T5 PO; +NEXI40GR PO; -PANT40TA2 PO; +PANT40TA3 PO; +PEG1POW PO; +SUCR1TA PO; +ZYRT10CA5 PO; -ZYRT10TA2 PO; +ZYRTTAB8 PO
[2018-05-01 12:24] LABS: ALBUMIN 3.9 GM/DL (3.2-5.2); ALT/SGPT 23 U/L (12-78); BILIRUBIN,TOTAL 0.2 MG/DL (0.2-1.0); BLOOD UREA NITROGEN 16 MG/DL (7-18); CALCIUM LEVEL 8.4 MG/DL (8.8-10.2); CARBON DIOXIDE LEVEL 28 MEQ/L (21-32); CHLORIDE LEVEL 105 MEQ/L (98-107); CHOLESTEROL LEVEL 170 MG/DL (<200); CHOLESTEROL RISK RATIO 2.394 (<5); CREATININE FOR GFR 0.87 MG/DL (0.55-1.30); GLOMERULAR FILTRATION RATE > 60.0 (>45); GLUCOSE, FASTING 107 MG/DL (70-100); HDL CHOLESTEROL 71 MG/DL (>40); LDL CHOLESTEROL 46 MG/DL (<100); NON-HDL-C 99 MG/DL; POTASSIUM SERUM 4.2 MEQ/L (3.5-5.1); SODIUM LEVEL 140 MEQ/L (136-145); TOTAL PROTEIN 7.5 GM/DL (6.4-8.2); TRIGLYCERIDES LEVEL 263 MG/DL (<150)
[2018-05-01 12:35] LABS: HEMOGLOBIN A1c 6.3 %
== END ==
LOC: M SFHCCLAY 14:06
PROVIDERS: ATTEND Family Medicine
DX: E11.9 Type 2 diabetes mellitus without complications (principal); E03.8 Other specified hypothyroidism
CPT/HCPCS: 80053; 80061; 83036; 84443; G0463

== ENCOUNTER → 2018-09-04 | Outpatient (REF) | payer MEDICARE, OTHER ==
[~2018-09-04] MED LIST changes: -ASPI1TAB PO; +ASPI81TA26 PO; -DILT120C82 PO; +DILT1CAP PO; +LISI-1046 PO; -LISI2.5T5 PO
[2018-09-04 16:55] LABS: ALT/SGPT 22 U/L (12-78); BILIRUBIN,TOTAL 0.3 MG/DL (0.2-1.0); BLOOD UREA NITROGEN 14 MG/DL (7-18); CALCIUM LEVEL 9.1 MG/DL (8.8-10.2); CARBON DIOXIDE LEVEL 30 MEQ/L (21-32); CHLORIDE LEVEL 106 MEQ/L (98-107); CREATININE FOR GFR 0.84 MG/DL (0.55-1.30); GLOMERULAR FILTRATION RATE > 60.0 (>39); GLUCOSE, FASTING 57 MG/DL (70-100); POTASSIUM SERUM 4.4 MEQ/L (3.5-5.1); SODIUM LEVEL 140 MEQ/L (136-145); THYROID STIMULATING HORMONE 0.855 uIU/ML (0.358-3.740); TOTAL PROTEIN 7.8 GM/DL (6.4-8.2)
[2018-09-04 16:56] LABS: HEMOGLOBIN A1c 6.7 %
== END ==
LOC: M SFHCCLAY 10:43
PROVIDERS: ATTEND Family Medicine
DX: E11.9 Type 2 diabetes mellitus without complications (principal); E03.8 Other specified hypothyroidism
CPT/HCPCS: 80053; 83036; 84443; G0463

== ENCOUNTER → 2019-01-15 | Outpatient (REF) | payer MEDICARE, OTHER ==
[~2019-01-15] MED LIST changes: +LOPE1LIQ18 PO; +ONDA4TAB6 PO
[2019-01-15 17:01] LABS: ALBUMIN 3.8 GM/DL (3.2-5.2); ALT/SGPT 25 U/L (12-78); BILIRUBIN,TOTAL 0.3 MG/DL (0.2-1.0); BLOOD UREA NITROGEN 15 MG/DL (7-18); CALCIUM LEVEL 9.1 MG/DL (8.8-10.2); CARBON DIOXIDE LEVEL 32 MEQ/L (21-32); CHLORIDE LEVEL 106 MEQ/L (98-107); CREATININE FOR GFR 0.87 MG/DL (0.55-1.30); GLOMERULAR FILTRATION RATE > 60.0 (>39); GLUCOSE, FASTING 86 MG/DL (70-100); POTASSIUM SERUM 4.2 MEQ/L (3.5-5.1); SODIUM LEVEL 143 MEQ/L (136-145); TOTAL PROTEIN 7.5 GM/DL (6.4-8.2)
[2019-01-15 17:11] LABS: HEMOGLOBIN A1c 6.8 %
== END ==
LOC: M SFHCCLAY 11:06
PROVIDERS: ATTEND Family Medicine
DX: E11.9 Type 2 diabetes mellitus without complications (principal)
CPT/HCPCS: 71046; 80053; 83036; G0463

== ENCOUNTER → 2019-01-15 | Outpatient (CLI) | payer MEDICARE, OTHER ==
[~2019-01-15] MED LIST changes: -LOPE1LIQ18 PO; -ONDA4TAB6 PO
--- NOTE | 2019-01-15 14:28 | REP ---
Chest x-ray: Two views. History: Atelectasis. Comparison study: September 20, 2017. Findings: The lungs are well inflated and clear. The pleural angles are sharp. Heart is not enlarged. The aorta is somewhat tortuous. Pulmonary vasculature is not increased. There are degenerative changes in the thoracic spine. Impression: No active disease. Electronically Signed by Brandyn Hernández MD 01/15/2019 04:48 P
== END ==
LOC: M CLY 11:30
PROVIDERS: ATTEND Family Medicine
DX: J98.11 Atelectasis (principal); M51.34 Other intervertebral disc degeneration, thoracic region

== ENCOUNTER → 2019-09-13 | Outpatient (REF) | payer MEDICARE, OTHER ==
[~2019-09-13] MED LIST changes: +AMLO1TAB24 PO; -AMLO5TAB6 PO; -LISI-1046 PO; +LISI2.5T2 PO; +LOPE1LIQ18 PO; +ONDA4TAB6 PO; +PANT40TA29 PO; -PANT40TA3 PO
[2019-09-13 16:46] LABS: BLOOD UREA NITROGEN 16 MG/DL (7-18); CALCIUM LEVEL 9.3 MG/DL (8.8-10.2); CARBON DIOXIDE LEVEL 31 MEQ/L (21-32); CHLORIDE LEVEL 105 MEQ/L (98-107); CREATININE FOR GFR 0.78 MG/DL (0.55-1.30); GLOMERULAR FILTRATION RATE > 60.0 (>39); GLUCOSE, FASTING 48 MG/DL (70-100); POTASSIUM SERUM 4.5 MEQ/L (3.5-5.1); SODIUM LEVEL 139 MEQ/L (136-145)
[2019-09-13 16:57] LABS: HEMOGLOBIN A1c 6.5 %
== END ==
LOC: M SFHCCLAY 10:36
PROVIDERS: ATTEND Family Medicine
DX: E11.9 Type 2 diabetes mellitus without complications (principal)
CPT/HCPCS: 80048; 83036; G0463

== ENCOUNTER → 2020-01-17 | Outpatient (REF) | payer MEDICARE, OTHER ==
[2020-01-17 14:18] LABS: HEMOGLOBIN A1c 6.5 %
[2020-01-17 15:52] LABS: ALT/SGPT 23 U/L (12-78); BILIRUBIN,TOTAL 0.3 MG/DL (0.2-1.0); BLOOD UREA NITROGEN 18 MG/DL (7-18); CALCIUM LEVEL 9.4 MG/DL (8.8-10.2); CARBON DIOXIDE LEVEL 30 MEQ/L (21-32); CHLORIDE LEVEL 103 MEQ/L (98-107); CREATININE FOR GFR 0.93 MG/DL (0.55-1.30); GLOMERULAR FILTRATION RATE > 60.0 (>39); GLUCOSE, FASTING 66 MG/DL (70-100); POTASSIUM SERUM 4.3 MEQ/L (3.5-5.1); SODIUM LEVEL 139 MEQ/L (136-145)
== END ==
LOC: M SFHCCLAY 08:58
PROVIDERS: ATTEND Family Medicine
DX: E11.9 Type 2 diabetes mellitus without complications (principal)
CPT/HCPCS: 80053; 83036; G0463

== ENCOUNTER → 2020-05-15 | Outpatient (REF) | payer MEDICARE, OTHER ==
[~2020-05-15] MED LIST changes: +ASPI-569 PO; -ASPI81TAEC PO; -PEG1POW PO; +POLY17PO18 PO
[2020-05-15 16:40] LABS: BASO # 0.1 10^3/uL (0.0-0.2); EOS # 0.2 10^3/uL (0.0-0.5); EOS % 2.3 % (0.0-3.0); HEMATOCRIT 40.9 % (36.0-47.0); LYMPH # 3.1 10^3/uL (1.5-5.0); LYMPH % 44.9 % (24.0-44.0); MEAN CORPUSCULAR HEMOGLOBIN 28.4 pg (27.0-33.0); MEAN CORPUSCULAR HGB CONC 31.8 g/dl (32.0-36.5); MEAN CORPUSCULAR VOLUME 89.5 fl (80.0-96.0); MONO # 0.5 10^3/uL (0.0-0.8); MONO % 6.9 % (2.0-8.0); NEUTROPHILS # 3.1 10^3/uL (1.5-8.5); NEUTROPHILS % 44.8 % (36.0-66.0); PLATELET COUNT, AUTOMATED 274 10^3/uL (150-450); RED BLOOD COUNT 4.57 10^6/uL (4.00-5.40); WHITE BLOOD COUNT 6.8 10^3/uL (4.0-10.0)
[2020-05-15 16:52] LABS: ALBUMIN 4.1 GM/DL (3.2-5.2); ALT/SGPT 26 U/L (12-78); BILIRUBIN,TOTAL 0.2 MG/DL (0.2-1.0); BLOOD UREA NITROGEN 21 MG/DL (7-18); CALCIUM LEVEL 9.2 MG/DL (8.8-10.2); CARBON DIOXIDE LEVEL 31 MEQ/L (21-32); CHLORIDE LEVEL 104 MEQ/L (98-107); CHOLESTEROL LEVEL 172 MG/DL (<200); CHOLESTEROL RISK RATIO 2.529 (<5); CREATININE FOR GFR 0.79 MG/DL (0.55-1.30); GLOMERULAR FILTRATION RATE > 60.0 (>39); GLUCOSE, FASTING 121 MG/DL (70-100); HDL CHOLESTEROL 68 MG/DL (>40); LDL CHOLESTEROL 59 MG/DL (<100); NON-HDL-C 104 MG/DL; POTASSIUM SERUM 4.6 MEQ/L (3.5-5.1); SODIUM LEVEL 139 MEQ/L (136-145); TOTAL PROTEIN 7.4 GM/DL (6.4-8.2); TRIGLYCERIDES LEVEL 227 MG/DL (<150)
[2020-05-15 18:05] LABS: HEMOGLOBIN A1c 6.4 %
== END ==
LOC: M SFHCCLAY 13:20
PROVIDERS: ATTEND Family Medicine
DX: Z01.818 Encounter for other preprocedural examination (principal); E11.9 Type 2 diabetes mellitus without complications; I47.1 Supraventricular tachycardia

== ENCOUNTER → 2020-12-01 | Outpatient (REF) | payer MEDICARE, OTHER ==
[~2020-12-01] MED LIST changes: -LISI2.5T2 PO; +LISI2.5T9 PO
[2020-12-01 18:45] LABS: ALBUMIN 3.5 GM/DL (3.2-5.2); ALT/SGPT 25 U/L (12-78); BILIRUBIN,TOTAL 0.3 MG/DL (0.2-1.0); BLOOD UREA NITROGEN 16 MG/DL (7-18); CALCIUM LEVEL 8.9 MG/DL (8.8-10.2); CARBON DIOXIDE LEVEL 29 MEQ/L (21-32); CHLORIDE LEVEL 105 MEQ/L (98-107); CREATININE FOR GFR 0.81 MG/DL (0.55-1.30); GLOMERULAR FILTRATION RATE > 60.0 (>39); GLUCOSE, FASTING 84 MG/DL (70-100); POTASSIUM SERUM 4.3 MEQ/L (3.5-5.1); SODIUM LEVEL 139 MEQ/L (136-145); TOTAL PROTEIN 7.1 GM/DL (6.4-8.2)
[2020-12-01 19:26] LABS: HEMOGLOBIN A1c 6.6 %
== END ==
LOC: M SFHCCLAY 13:43
PROVIDERS: ATTEND Family Medicine
DX: E03.8 Other specified hypothyroidism (principal); E11.9 Type 2 diabetes mellitus without complications; Z23 Encounter for immunization
CPT/HCPCS: 80053; 83036; 84443; 90682; G0008; G0463

== ENCOUNTER → 2021-12-14 | Outpatient (REF) | payer MEDICARE, OTHER ==
[~2021-12-14] MED LIST changes: -CEFD1CAP8 PO; +CEFD300C41 PO
[2021-12-14 18:56] LABS: ALBUMIN 3.8 GM/DL (3.2-5.2); ALT/SGPT 31 U/L (12-78); BILIRUBIN,TOTAL 0.3 MG/DL (0.2-1.0); BLOOD UREA NITROGEN 15 MG/DL (7-18); CALCIUM LEVEL 8.9 MG/DL (8.8-10.2); CARBON DIOXIDE LEVEL 26 MEQ/L (21-32); CHLORIDE LEVEL 105 MEQ/L (98-107); CHOLESTEROL LEVEL 171 MG/DL (<200); CREATININE FOR GFR 0.85 MG/DL (0.55-1.30); GLOMERULAR FILTRATION RATE > 60.0 (>39); GLUCOSE, FASTING 81 MG/DL (70-100); HDL CHOLESTEROL 66 MG/DL (>40); LDL CHOLESTEROL 66 MG/DL (<100); NON-HDL-C 105 MG/DL; POTASSIUM SERUM 4.6 MEQ/L (3.5-5.1); SODIUM LEVEL 137 MEQ/L (136-145); TOTAL PROTEIN 7.7 GM/DL (6.4-8.2); TRIGLYCERIDES LEVEL 194 MG/DL (<150)
[2021-12-14 19:44] LABS: HEMOGLOBIN A1c 6.8 %
== END ==
LOC: M SFHCCLAY 13:58
PROVIDERS: ATTEND Family Medicine
DX: E11.9 Type 2 diabetes mellitus without complications (principal)

== ENCOUNTER → 2022-06-14 | Outpatient (REF) | payer MEDICARE, OTHER ==
[~2022-06-14] MED LIST changes: +CLOP75TA99 PO; -PLAV1TAB2 PO
[2022-06-14 17:39] LABS: HEMATOCRIT 40.4 % (36.0-47.0); HEMOGLOBIN 13.2 g/dl (12.0-15.5); MEAN CORPUSCULAR HEMOGLOBIN 28.8 pg (27.0-33.0); MEAN CORPUSCULAR HGB CONC 32.7 g/dl (32.0-36.5); MEAN CORPUSCULAR VOLUME 88.2 fl (80.0-96.0); PLATELET COUNT, AUTOMATED 255 10^3/uL (150-450); RED BLOOD COUNT 4.58 10^6/uL (4.00-5.40); WHITE BLOOD COUNT 7.1 10^3/uL (4.0-10.0)
[2022-06-14 17:40] LABS: HEMOGLOBIN A1c 6.5 % (4.0-6.0)
[2022-06-14 17:44] LABS: PROTHROMBIN TIME 13.4 SECONDS (12.5-14.5)
[2022-06-14 17:56] LABS: ALBUMIN 3.8 G/DL (3.2-5.2); BILIRUBIN,TOTAL 0.2 MG/DL (0.3-1.2); CALCIUM LEVEL 8.7 MG/DL (8.3-10.6); CREATININE FOR GFR 1.07 MG/DL (0.55-1.30); GLOMERULAR FILTRATION RATE 53.5 (>39); POTASSIUM SERUM 4.3 MMOL/L (3.5-5.1); TOTAL PROTEIN 7.1 G/DL (5.7-8.2)
== END ==
LOC: M SFHCCLAY 14:14
PROVIDERS: ATTEND Family Medicine
DX: Z01.818 Encounter for other preprocedural examination (principal); I10 Essential (primary) hypertension; E11.9 Type 2 diabetes mellitus without complications

== ENCOUNTER → 2022-06-14 | Outpatient (CLI) | payer MEDICARE, OTHER | LOC: M CLY 14:46 | PROVIDERS: ATTEND Family Medicine | DX: Z01.818 Encounter for other preprocedural examination (principal) ==

== ENCOUNTER → 2022-09-19 | Outpatient (REF) | payer MEDICARE, OTHER ==
[~2022-09-19] MED LIST changes: +DILT120C41 PO; -DILT1CAP PO; -K-TA10TA2 PO; +POTA-165 PO
[2022-09-19 18:21] LABS: HEMATOCRIT 30.9 % (36.0-47.0); HEMOGLOBIN 9.5 g/dl (12.0-15.5); MEAN CORPUSCULAR HEMOGLOBIN 24.4 pg (27.0-33.0); MEAN CORPUSCULAR HGB CONC 30.7 g/dl (32.0-36.5); MEAN CORPUSCULAR VOLUME 79.2 fl (80.0-96.0); PLATELET COUNT, AUTOMATED 324 10^3/uL (150-450); WHITE BLOOD COUNT 8.2 10^3/uL (4.0-10.0)
[2022-09-19 18:33] LABS: HEMOGLOBIN A1c 6.5 % (4.0-6.0)
[2022-09-19 18:41] LABS: ALBUMIN 3.6 G/DL (3.2-5.2); ALKALINE PHOSPHATASE 66 U/L (46-116); ALT/SGPT 17 U/L (7.0-40); AST/SGOT 14 U/L (<34); BILIRUBIN,TOTAL 0.3 MG/DL (0.3-1.2); BLOOD UREA NITROGEN 15 MG/DL (9-23); CALCIUM LEVEL 8.8 MG/DL (8.3-10.6); CARBON DIOXIDE LEVEL 27 MMOL/L (20-31); CHLORIDE LEVEL 104 MMOL/L (98-107); CREATININE FOR GFR 0.74 MG/DL (0.55-1.30); GLOMERULAR FILTRATION RATE > 60.0 (>39); GLUCOSE, FASTING 82 MG/DL (74-106); POTASSIUM SERUM 4.4 MMOL/L (3.5-5.1); SODIUM LEVEL 139 MMOL/L (136-145); TOTAL PROTEIN 7.2 G/DL (5.7-8.2)
== END ==
LOC: M SFHCCLAY 10:18
PROVIDERS: ATTEND Family Medicine
DX: Z01.818 Encounter for other preprocedural examination (principal); I10 Essential (primary) hypertension; C54.1 Malignant neoplasm of endometrium; E11.9 Type 2 diabetes mellitus without complications

== ENCOUNTER → 2022-09-19 | Outpatient (CLI) | payer MEDICARE, OTHER | LOC: M CLY 10:28 | PROVIDERS: ATTEND Family Medicine | DX: Z01.818 Encounter for other preprocedural examination (principal); I10 Essential (primary) hypertension; C54.1 Malignant neoplasm of endometrium ==

== ENCOUNTER → 2022-12-10 | Outpatient (REF) | payer MEDICARE, OTHER ==
[~2022-12-10] MED LIST changes: -CEFD300C41 PO; +CEFD300C42 PO
[2022-12-10 17:44] LABS: BASO % 1.2 % (0.0-1.0); EOS # 0.2 10^3/uL (0.0-0.5); EOS % 6.7 % (0.0-3.0); HEMATOCRIT 38.1 % (36.0-47.0); HEMOGLOBIN 12.3 g/dl (12.0-15.5); LYMPH # 0.8 10^3/uL (1.5-5.0); LYMPH % 23.9 % (24.0-44.0); MEAN CORPUSCULAR HEMOGLOBIN 26.5 pg (27.0-33.0); MEAN CORPUSCULAR HGB CONC 32.3 g/dl (32.0-36.5); MEAN CORPUSCULAR VOLUME 81.9 fl (80.0-96.0); MONO # 0.3 10^3/uL (0.0-0.8); NEUTROPHILS # 1.9 10^3/uL (1.5-8.5); NEUTROPHILS % 57.9 % (36.0-66.0); PLATELET COUNT, AUTOMATED 142 10^3/uL (150-450); RED BLOOD COUNT 4.65 10^6/uL (4.00-5.40); WHITE BLOOD COUNT 3.3 10^3/uL (4.0-10.0)
[2022-12-10 17:49] LABS: IRON (FE) 78 UG/DL (50-170); PERCENT SATURATION 25.2 % (13.2-45.0); TOTAL IRON BINDING CAPACITY 310 UG/DL (250-425)
[2022-12-10 17:50] LABS: ALBUMIN 3.7 G/DL (3.2-5.2); ALKALINE PHOSPHATASE 58 U/L (46-116); ALT/SGPT 20 U/L (7.0-40); AST/SGOT 20 U/L (<34); BILIRUBIN,TOTAL 0.2 MG/DL (0.3-1.2); BLOOD UREA NITROGEN 13 MG/DL (9-23); CALCIUM LEVEL 8.9 MG/DL (8.3-10.6); CARBON DIOXIDE LEVEL 24 MMOL/L (20-31); CHLORIDE LEVEL 105 MMOL/L (98-107); CREATININE FOR GFR 0.67 MG/DL (0.55-1.30); GLOMERULAR FILTRATION RATE > 60.0 (>39); GLUCOSE, FASTING 115 MG/DL (74-106); MAGNESIUM LEVEL 1.9 MG/DL (1.8-2.4); POTASSIUM SERUM 3.8 MMOL/L (3.5-5.1); SODIUM LEVEL 139 MMOL/L (136-145)
[2022-12-10 17:53] LABS: FERRITIN 21.3 NG/ML (7.3-270.7); THYROID STIMULATING HORMONE 1.609 uIU/ML (0.55-4.78)
[2022-12-10 18:11] LABS: HEMOGLOBIN A1c 5.6 % (4.0-6.0)
== END ==
LOC: M SFHCCLAY 10:58
PROVIDERS: ATTEND Family Medicine
DX: C54.1 Malignant neoplasm of endometrium (principal); D64.9 Anemia, unspecified; E11.9 Type 2 diabetes mellitus without complications; E03.8 Other specified hypothyroidism; K21.9 Gastro-esophageal reflux disease without esophagitis

== ENCOUNTER → 2023-03-07 | Outpatient (REF) | payer MEDICARE, OTHER ==
[~2023-03-07] MED LIST changes: +CEFD1CAP9 PO; -CEFD300C42 PO
== END ==
LOC: M SFHCCLAY 09:27
PROVIDERS: ATTEND Physician Assistant
DX: H57.89 Other specified disorders of eye and adnexa (principal)

== ENCOUNTER → 2023-03-18 | Outpatient (REF) | payer MEDICARE, OTHER | LOC: M SFHCCLAY 17:09 | PROVIDERS: ATTEND Physician Assistant | DX: R19.7 Diarrhea, unspecified (principal) ==

== ENCOUNTER → 2023-12-01 | Outpatient (REF) | payer MEDICARE, OTHER ==
[~2023-12-01] MED LIST changes: +ESOM1CAP20 PO; -ESOM1CAP5 PO; +ONDA-282 PO; -ONDA4TAB6 PO
[2023-12-01 18:07] LABS: ALBUMIN 3.8 G/DL (3.2-5.2); ALKALINE PHOSPHATASE 70 U/L (46-116); ALT/SGPT 26 U/L (7.0-40); AST/SGOT 27 U/L (<34); BILIRUBIN,TOTAL 0.2 MG/DL (0.3-1.2); BLOOD UREA NITROGEN 16 MG/DL (9-23); CALCIUM LEVEL 9.5 MG/DL (8.3-10.6); CARBON DIOXIDE LEVEL 26 MMOL/L (20-31); CHLORIDE LEVEL 105 MMOL/L (98-107); CHOLESTEROL LEVEL 171 MG/DL (<200); CHOLESTEROL RISK RATIO 2.86 (<5); CREATININE FOR GFR 0.75 MG/DL (0.55-1.30); FREE T4 1.33 NG/DL (0.89-1.76); GLOMERULAR FILTRATION RATE > 60.0 (>39); GLUCOSE, FASTING 107 MG/DL (74-106); HDL CHOLESTEROL 59.6 MG/DL (>40); LDL CHOLESTEROL 61.8 MG/DL (<100); NON-HDL-C 111.4 MG/DL; POTASSIUM SERUM 4.7 MMOL/L (3.5-5.1); SODIUM LEVEL 136 MMOL/L (136-145); THYROID STIMULATING HORMONE 1.334 uIU/ML (0.55-4.78); TOTAL PROTEIN 7.4 G/DL (5.7-8.2); TRIGLYCERIDES LEVEL 248 MG/DL (<150)
[2023-12-01 18:14] LABS: HEMOGLOBIN A1c 6.4 % (4.0-6.0)
== END ==
LOC: M SFHCCLAY 12:06
PROVIDERS: ATTEND Family Medicine
DX: E11.9 Type 2 diabetes mellitus without complications (principal); E03.9 Hypothyroidism, unspecified

== ENCOUNTER → 2024-09-10 | Outpatient (CLI) | payer MEDICARE, OTHER ==
[~2024-09-10] MED LIST changes: +HYDR12.510 PO; -HYDR12CA PO; +NYST1POW3; +NYST1POW3 TOP; -NYST1POW9; -NYST1POW9 TOP; -PRAV20TA2 PO; +PRAV20TA78 PO
== END ==
LOC: M CLY 09:29
PROVIDERS: ATTEND Family Medicine
DX: M54.50 Low back pain, unspecified (principal)

== ENCOUNTER → 2024-09-10 | Outpatient (CLI) | payer MEDICARE, OTHER ==
[~2024-09-10] MED LIST changes: -HYDR12.510 PO; +HYDR12CA PO
== END ==
LOC: M CLY 09:19
PROVIDERS: ATTEND Family Medicine
DX: M54.50 Low back pain, unspecified (principal); Z53.9 Procedure and treatment not carried out, unspecified reason

== ENCOUNTER → 2024-11-30 | Outpatient (REF) | payer MEDICARE, OTHER ==
[~2024-11-30] MED LIST changes: +HYDR12.510 PO; -HYDR12CA PO
[2024-11-30 18:59] LABS: BASO # 0.1 10^3/uL (0.0-0.2); BASO % 1.3 % (0.0-1.0); EOS # 0.1 10^3/uL (0.0-0.5); EOS % 2.6 % (0.0-3.0); LYMPH # 1.8 10^3/uL (1.5-5.0); LYMPH % 33.7 % (24.0-44.0); MONO # 0.4 10^3/uL (0.0-0.8); MONO % 8.2 % (2.0-8.0); NEUTROPHILS # 2.9 10^3/uL (1.5-8.5); NEUTROPHILS % 53.8 % (36.0-66.0); PLATELET COUNT, AUTOMATED 241 10^3/uL (150-450)
[2024-11-30 19:04] LABS: ALT/SGPT 20.0 U/L (7.0-40); AST/SGOT 18.0 U/L (<34); CALCIUM LEVEL 9.2 MG/DL (8.3-10.6); CARBON DIOXIDE LEVEL 25.0 MMOL/L (20-31); CHLORIDE LEVEL 105.0 MMOL/L (98-107); CHOLESTEROL LEVEL 161.0 MG/DL (<200); CHOLESTEROL RISK RATIO 2.51 (<5); CREATININE FOR GFR 0.81 MG/DL (0.55-1.30); GLOMERULAR FILTRATION RATE 75.2 (>39); LDL CHOLESTEROL 61.5 MG/DL (<100); MAGNESIUM LEVEL 2.1 MG/DL (1.8-2.4); NON-HDL-C 97.1 MG/DL; POTASSIUM SERUM 4.3 MMOL/L (3.5-5.1); SODIUM LEVEL 140.0 MMOL/L (136-145); TRIGLYCERIDES LEVEL 178.0 MG/DL (<150)
[2024-11-30 19:09] LABS: FREE T4 1.29 NG/DL (0.89-1.76)
[2024-11-30 20:05] LABS: ESTIMATED AVERAGE GLUCOSE 140.0 MG/DL (60-110)
== END ==
LOC: M SFHCCLAY 10:38
PROVIDERS: ATTEND Family Medicine
DX: D64.9 Anemia, unspecified (principal); E03.9 Hypothyroidism, unspecified; K21.9 Gastro-esophageal reflux disease without esophagitis; E11.9 Type 2 diabetes mellitus without complications